=== PATIENT | female | born 1935 | race Caucasian/White ===

== ENCOUNTER 2020-09-29 15:42 | Inpatient (IN) | payer MEDICARE, OTHER, SELFPAY ==
[2020-09-29 15:44] VITALS: BP 140/78; PULSE 73; RESP 16; TEMP 36.7; O2SAT 97; BMI 19.5
[2020-09-29 15:54] VITALS: BP 140/78; PULSE 81; RESP 17; O2SAT 100
--- NOTE | 2020-09-29 15:55 | XR_ITS ---
WS: [id number] XR hip RT 2-3V wo/w pel* [id number] REASON FOR EXAM: fall with hip pain FINDINGS: Transcervical fracture of the proximal right femur probably categorized as a subcapital fracture. There may be a nondisplaced fracture of the right inferior pubic ramus medially. XR/XR hip RT 2-3V wo/w pel* [id number] IMPRESSION: Probable subcapital fracture. Possible inferior pubic ramus fracture as above.
--- NOTE | 2020-09-29 15:57 | ED_ITS ---
Documented by User: EUGENIA Villela 09/29/20 16:58 HPI - Fall General: Chief Complaint: Fall Stated Complaint: fall/right hip pain Time Seen by Provider: 09/29/20 15:50 History of Present Illness: HPI Narrative: Patient is an 85-year-old female who comes to the ED via EMS with right hip pain after fall. EMS brought patient and gave her 100mcg of fentanyl. Patient has a past medical history of hypertension, hyperlipidemia, A. fib with pacemaker and is on apixaban. Patient says that she was in her house and she got up and felt a little dizzy and fell over hitting her right hip on the ground. Denies any head trauma or loss of consciousness. Patient was unable to get up and EMS was called out to assist patient. She says her pain was an 8 out of 10 on the right hip. Patient says she lives at home and is able to ambulate without any assisting devices before injury. Associated symptoms-after fall: Denies abdominal pain, chest pain, headache(s), hematuria or neck pain Review of Systems Const: Denies: fever(s), chills or fatigue Eyes: Denies: change in vision or eye discomfort ENMT: Denies: throat pain, odynophagia, nasal discharge or nasal congestion Card: Denies: chest pain, palpitations, edema, swelling of feet/ankles, dyspnea on exertion or orthopnea Resp: Denies: dyspnea, productive cough or non-productive cough GI: Denies: abdominal pain, nausea, vomiting, diarrhea, constipation or hematochezia : Denies: flank pain, dysuria or hematuria Musc: Reports: extremity pain (right hip) and limited range of motion (right hip); Denies: neck pain, back pain or extremity swelling Skin/Breast: Denies: rash or new lesions Neuro: Denies: headache(s), numbness in extremities or weakness in extremities PFS ED PFSH: Medical History Anticoagulation adequate with anticoagulant therapy Eliquis Atrial fibrillation Carotid stenosis Hyperlipidemia Hypertension Pacemaker Surgical History Status post aorto-coronary artery bypass graft Family History Grandmother CAD (coronary artery disease) Family/Other CAD (coronary artery disease) Denies family history of Diabetes Clotting disorder Dementia Hyperlipidemia Psychiatric illness Chronic kidney disease (CKD) Suicide Anesthesia complication Bleeding disorder Family history of premature coronary artery disease Lung disease Cancer Hypertension Stroke Social History Smoking and tobacco status: never smoked Alcohol intake: never Physical Exam Const: COMMON NORMALS: no acute distress, patient oriented x3 and alert GENERAL APPEARANCE: cooperative and comfortable HENMT: COMMON NORMALS: normocephalic HEAD & SCALP: normocephalic MOUTH: Normal oral and palatal mucosa present THROAT: posterior oropharynx normal and uvula midline Neck/C-Spine: COMMON NORMALS: supple GENERAL: Yes normal visual inspection Resp: COMMON NORMALS: normal respiratory effort, No retractions, No use of accessory muscles and clear to auscultation bilaterally AUSCULTATION: clear to auscultation bilaterally Cardio: COMMON NORMALS: regular rate, regular rhythm, S1 normal heart sound present, S2 normal heart sound present, No gallops present (Cardio), No clicks present (Cardio), No murmurs present (Cardio) and Peripheral pulses 2+ throughout RATE: regular rate RHYTHM: regular rhythm HEART SOUNDS: S1 normal heart sound present and S2 normal heart sound present PERIPHERAL PULSES: Peripheral pulses 2+ throughout GI: COMMON NORMALS: Normal to inspection, nondistended, normoactive bowel sounds present, Soft to palpation, non-tender and no masses PALPATION: Yes Soft to palpation : COMMON NORMALS: Yes no CVA tenderness BLADDER/KIDNEY EXAM: Yes no CVA tenderness Back/Pelvis: COMMON NORMALS: no CVA tenderness Extremity: NARRATIVE EXTREMITY EXAM: Patient's right hip has some tenderness to palpation over the greater trochanter. Patient's right leg is shortened but not externally rotated. Right foot?pedal pulse 1+ and cap refill normal. Sensation intact. GENERAL: Yes normal exam except as noted Neuro: COMMON NORMALS: patient oriented x3 and moves all extremities SENSORIUM/ORIENTATION: Yes alert Skin: GENERAL SKIN EXAM: dry skin Course Consultations: Consultation #1: I contacted Dr. Ivy about patient case. She told me to have patient brought in through medical services due to age and being on Eliquis. Time: 16:48 Vital Signs: Vital signs: Vital Signs Temperature 98.1 F 09/29/20 15:44 Pulse Rate 81 09/29/20 15:54 Respiratory Rate 17 09/29/20 15:54 Blood Pressure 140/78 09/29/20 15:54 Pulse Oximetry 100 09/29/20 15:54 MDM - Fall MDM Narrative: Medical decision making narrative: Patient is a 85-year-old female comes to the ED with right hip pain after fall. Patient is currently on apixaban. Patient's right leg is shortened neurovascular intact, normal cap refill and 1+ pedal pulse distally. X-ray of right hip shows subcapital fracture with possible inferior pubic ramus fracture. I contacted Dr. Ivy and she said to have patient admitted to hospitalist. I told Dr. Ford about patient case and he will be placing the admitting orders. Lab Data: Labs: Lab Results 09/29/20 Range/Units 17:05 WBC 18.0 H (4.0-10.0) 10^3/ uL RBC 4.40 (4.1-5.3) 10^6/u L Hgb 11.8 (11.5-15.3) g/dL Hct 38.4 (37.0-47.0) % MCV 87.3 (81-99) fL MCH 26.8 L (28.0-34.0) pg MCHC 30.7 (30.0-36.0) g/dL RDW 13.4 (12.1-15.1) % Plt Count 186 (130-400) 10^3/c mm MPV 9.6 (7.4-10.4) fL Neut % (Auto) 90.0 % Lymph % (Auto) 3.8 % [place] % (Auto) 5.4 % Eos % (Auto) 0.1 % Baso % (Auto) 0.3 % Neut # (Auto) 16.19 H (1.8-7.7) 10^3/u L Lymph # (Auto) 0.7 L (0.8-4.8) 10^3/u L [place] # (Auto) 1.0 H (0.2-0.9) 10^3/u L Eos # (Auto) 0.0 (0.0-0.8) 10^3/u L Baso # (Auto) 0.1 (0.0-0.1) 10^3/u L Nucleated RBC % (a uto) 0 % Nucleated RBCs # 0.0 /100WBC Imaging Data^: Xray Ortho: Attestation: I personally reviewed and interpreted this imaging study as follows: Radiologist's impression: [facility] [address] [place] [address] XRay Report Signed Patient: Holley Haque Unit #: [id number] : 1935 Age/Sex: 85 / F ADM Date: 09/29/20 Loc: ER Room/Bed: Attending Dr: Ordering Provider/Ordering MD: Dave Newton Date of Service: 09/29/20 Procedure(s): XR hip RT 2-3V wo/w pel* [id number] Accession Number(s): [id number] Report Number: [id number] WS: [id number] XR hip RT 2-3V wo/w pel* [id number] REASON FOR EXAM: fall with hip pain FINDINGS: Transcervical fracture of the proximal right femur probably categorized as a subcapital fracture. There may be a nondisplaced fracture of the right inferior pubic ramus medially. XR/XR hip RT 2-3V wo/w pel* [id number] IMPRESSION: Probable subcapital fracture. Possible inferior pubic ramus fracture as above. Dictated By: Emir Hernandez Jr, MD Signed By: Emir Hernandez Jr, MD Signed Date/Time: 09/29/201646 DD/ Discharge Plan Discharge Prescriptions: No Action omega-3 fatty acids [Fish Oil Concentrate] 1,000 mg capsule 1,000 mg PO BID RF: 0 pantoprazole 40 mg tablet,delayed release (DR/EC) 40 mg PO DAILY RF: 0 aspirin [Adult Low Dose Aspirin] 81 mg tablet,delayed release (DR/EC) 81 mg PO DAILY RF: 0 sotalol 80 mg tablet 80 mg PO BID RF: 0 simvastatin 40 mg tablet 40 mg PO BEDTIME RF: 0 amlodipine 2.5 mg tablet 2.5 mg PO DAILY 90 Days Qty: 90 RF: 3 Eliquis 2.5 mg tablet 2.5 mg PO BID 90 Days Qty: 180 RF: 3 lisinopril 20 mg tablet 20 mg PO BID 90 Days Qty: 180 RF: 3 Multiple Vitamins Tablet 1 tab PO DAILY RF: 0 Coding Level of Care Code ED Hop Worker for Elbertg Fwd Exam Comprehensive Documented by User: Jami Ford MD 09/29/20 17:25 HPI - Fall General: Chief Complaint: Fall Stated Complaint: fall/right hip pain Time Seen by Provider: 09/29/20 15:50 PFSH ED PFSH: Medical History Anticoagulation adequate with anticoagulant therapy Eliquis Atrial fibrillation Carotid stenosis Hyperlipidemia Hypertension Pacemaker Surgical History Status post aorto-coronary artery bypass graft Family History Grandmother CAD (coronary artery disease) Family/Other CAD (coronary artery disease) Denies family history of Diabetes Clotting disorder Dementia Hyperlipidemia Psychiatric illness Chronic kidney disease (CKD) Suicide Anesthesia complication Bleeding disorder Family history of premature coronary artery disease Lung disease Cancer Hypertension Stroke Social History Smoking and tobacco status: never smoked Alcohol intake: never Course Vital Signs: Vital signs: Vital Signs Temperature 98.1 F 09/29/20 15:44 Pulse Rate 81 09/29/20 15:54 Respiratory Rate 17 09/29/20 15:54 Blood Pressure 140/78 09/29/20 15:54 Pulse Oximetry 100 09/29/20 15:54 MDM - Fall MDM Narrative: Medical decision making narrative: Patient presents here with a hip fracture from a fall. She denies any head injury. I saw patient with midlevel and talked to hospitalist Dr. Luiui Dr. Goyal has been consulted. Lab Data: Labs: Lab Results 09/29/20 Range/Units 17:05 WBC 18.0 H (4.0-10.0) 10^3/ uL RBC 4.40 (4.1-5.3) 10^6/u L Hgb 11.8 (11.5-15.3) g/dL Hct 38.4 (37.0-47.0) % MCV 87.3 (81-99) fL MCH 26.8 L (28.0-34.0) pg MCHC 30.7 (30.0-36.0) g/dL RDW 13.4 (12.1-15.1) % Plt Count 186 (130-400) 10^3/c mm MPV 9.6 (7.4-10.4) fL Neut % (Auto) 90.0 % Lymph % (Auto) 3.8 % [place] % (Auto) 5.4 % Eos % (Auto) 0.1 % Baso % (Auto) 0.3 % Neut # (Auto) 16.19 H (1.8-7.7) 10^3/u L Lymph # (Auto) 0.7 L (0.8-4.8) 10^3/u L [place] # (Auto) 1.0 H (0.2-0.9) 10^3/u L Eos # (Auto) 0.0 (0.0-0.8) 10^3/u L Baso # (Auto) 0.1 (0.0-0.1) 10^3/u L Nucleated RBC % (a uto) 0 % Nucleated RBCs # 0.0 /100WBC Discharge Plan Discharge Prescriptions: No Action omega-3 fatty acids [Fish Oil Concentrate] 1,000 mg capsule 1,000 mg PO BID RF: 0 pantoprazole 40 mg tablet,delayed release (DR/EC) 40 mg PO DAILY RF: 0 aspirin [Adult Low Dose Aspirin] 81 mg tablet,delayed release (DR/EC) 81 mg PO DAILY RF: 0 sotalol 80 mg tablet 80 mg PO BID RF: 0 simvastatin 40 mg tablet 40 mg PO BEDTIME RF: 0 amlodipine 2.5 mg tablet 2.5 mg PO DAILY 90 Days Qty: 90 RF: 3 Eliquis 2.5 mg tablet 2.5 mg PO BID 90 Days Qty: 180 RF: 3 lisinopril 20 mg tablet 20 mg PO BID 90 Days Qty: 180 RF: 3 Multiple Vitamins Tablet 1 tab PO DAILY RF: 0 Coding Level of Care Code ED Hop Worker for Chg Fwd Exam Comprehensive
--- NOTE | 2020-09-29 16:50 | XR_ITS ---
WS: [id number] XR chest 1V portable [id number] REASON FOR EXAM: htn FINDINGS: Pacemaker in place over the left chest with leads to the left subclavian vein to the right atrium and right ventricular apex. The heart is not enlarged. There is been previous coronary artery bypass surgery. There is a presumed retrocardiac density which may represent a hiatal hernia. No active pulmonary parenchymal or pleural disease is identified. XR/XR chest 1V portable [id number] IMPRESSION: No acute chest abnormality.
--- NOTE | 2020-09-29 16:51 | ECG_ITS ---
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 Measurements Intervals Mack Rate: 80 P: 83 FL: 122 QRS: 48 QRSD: 90 T: 11 QT: 364 QTc: 421 Interpretive Statements SINUS RHYTHM LOW QRS VOLTAGE IN EXTREMITY LEADS [QRS DEFLECTION < 0.5 mV IN LIMB LEADS] MODERATE T-WAVE ABNORMALITY, CONSIDER ANTERIOR ISCHEMIA [-0.1+ mV T WAVE IN V3/V4] Compared to ECG 10/21/2017 06:10:36 Low QRS voltage now present T-wave abnormality now present Possible ischemia now present Atrial-paced complex(es) or rhythm no longer present Myocardial infarct finding no longer present Electronically Signed On 09-29-2020 18:55:14 HEADMASTER/MISTRESS by Ana Lilia Smith M.D. [id number]
[2020-09-29 17:12] LABS: Basophils # 0.1 10^3/uL (0.0-0.1); Basophils % 0.3 %; Eosinophils % 0.1 %; Hematocrit 38.4 % (37.0-47.0); Hemoglobin 11.8 g/dL (11.5-15.3); Lymphocytes # 0.7 10^3/uL (0.8-4.8); Lymphocytes % 3.8 %; Mean Corpuscular HGB Conc 30.7 g/dL (30.0-36.0); Mean Corpuscular Hemoglobin 26.8 pg (28.0-34.0); Mean Corpuscular Volume 87.3 fL (81-99); Mean Platelet Volume 9.6 fL (7.4-10.4); Monocytes % 5.4 %; Neutrophils # 16.19 10^3/uL (1.8-7.7); Nucleated Red Blood Cells % 0 %; Platelet Count 186 10^3/cmm (130-400); Red Cell Distribution Width 13.4 % (12.1-15.1)
[2020-09-29 17:25] LABS: INR 1.16 (0.8-1.2)
--- NOTE | 2020-09-29 17:27 | W.ED.FALL ---
HPI - Fall General: Chief Complaint: Fall Stated Complaint: fall/right hip pain Time Seen by Provider: 09/29/20 15:50 PFSH ED PFSH: Medical History Anticoagulation adequate with anticoagulant therapy Eliquis Atrial fibrillation Carotid stenosis Hyperlipidemia Hypertension Pacemaker Surgical History Status post aorto-coronary artery bypass graft Family History Grandmother CAD (coronary artery disease) Family/Other CAD (coronary artery disease) Denies family history of Diabetes Clotting disorder Dementia Hyperlipidemia Psychiatric illness Chronic kidney disease (CKD) Suicide Anesthesia complication Bleeding disorder Family history of premature coronary artery disease Lung disease Cancer Hypertension Stroke Social History Smoking and tobacco status: never smoked Alcohol intake: never Course Vital Signs: Vital signs: Vital Signs Temperature 98.1 F 09/29/20 15:44 Pulse Rate 81 09/29/20 15:54 Respiratory Rate 17 09/29/20 15:54 Blood Pressure 140/78 09/29/20 15:54 Pulse Oximetry 100 09/29/20 15:54 MDM - Fall Lab Data: Labs: Lab Results 09/29/20 09/29/20 Range/Units 17:05 17:05 WBC 18.0 H (4.0-10.0) 10^3/ uL RBC 4.40 (4.1-5.3) 10^6/u L Hgb 11.8 (11.5-15.3) g/dL Hct 38.4 (37.0-47.0) % MCV 87.3 (81-99) fL MCH 26.8 L (28.0-34.0) pg MCHC 30.7 (30.0-36.0) g/dL RDW 13.4 (12.1-15.1) % Plt Count 186 (130-400) 10^3/c mm MPV 9.6 (7.4-10.4) fL Neut % (Auto) 90.0 % Lymph % (Auto) 3.8 % [place] % (Auto) 5.4 % Eos % (Auto) 0.1 % Baso % (Auto) 0.3 % Neut # (Auto) 16.19 H (1.8-7.7) 10^3/u L Lymph # (Auto) 0.7 L (0.8-4.8) 10^3/u L [place] # (Auto) 1.0 H (0.2-0.9) 10^3/u L Eos # (Auto) 0.0 (0.0-0.8) 10^3/u L Baso # (Auto) 0.1 (0.0-0.1) 10^3/u L Nucleated RBC % (a uto) 0 % Nucleated RBCs # 0.0 /100WBC PT 15.20 H (12.1-14.9) SECO NDS INR 1.16 (0.8-1.2) EKG Data^: EKG 1: EKG interpretation date: 09/29/20 EKG interpretation time: 17:27 Interpretation: Sinus rhythm ventricular rate 80 bpm IL interval is 122 ms QRS durations 90 ms QT 364 Edie has moderate T wave abnormality in leads V3 V4 Discharge Plan Discharge Prescriptions: No Action omega-3 fatty acids [Fish Oil Concentrate] 1,000 mg capsule 1,000 mg PO BID RF: 0 pantoprazole 40 mg tablet,delayed release (DR/EC) 40 mg PO DAILY RF: 0 aspirin [Adult Low Dose Aspirin] 81 mg tablet,delayed release (DR/EC) 81 mg PO DAILY RF: 0 sotalol 80 mg tablet 80 mg PO BID RF: 0 simvastatin 40 mg tablet 40 mg PO BEDTIME RF: 0 amlodipine 2.5 mg tablet 2.5 mg PO DAILY 90 Days Qty: 90 RF: 3 Eliquis 2.5 mg tablet 2.5 mg PO BID 90 Days Qty: 180 RF: 3 lisinopril 20 mg tablet 20 mg PO BID 90 Days Qty: 180 RF: 3 Multiple Vitamins Tablet 1 tab PO DAILY RF: 0 Coding Level of Care Code ED Community Health Nurse Staff for Vicki Gonzalez
[2020-09-29 17:37] LABS: Alanine Aminotransferase 18 U/L (0-33); Albumin Level 3.6 g/dL (3.5-5.2); Alkaline Phosphatase 71 IU/L (35-105); Anion Gap 11.8 (5-19); Aspartate Amino Transferase 27 U/L (0-32); Blood Urea Nitrogen 13 mg/dL (8-23); Calcium 8.2 mg/dL (8.5-10.5); Carbon Dioxide 25 mmol/L (22-29); Chloride 106 mmol/L (98-107); Globulin 2.2 g/dL (1.3-4.6); Glucose 138 mg/dL (65-115); Osmolality Calculated 290 mOsm/kg (285-295); Potassium 3.8 mmol/L (3.5-5.1); Sodium 139 mmol/L (136-145); Total Bilirubin 0.7 mg/dL (0.15-1.2); Total Protein 5.8 g/dL (6.6-8.7)
[2020-09-29 18:17] VITALS: RESP 17
[2020-09-29] MEDS: morphine 4 mg/mL SDV 1 mL IVP (18:17)
[2020-09-29 18:20] VITALS: BP 152/77; PULSE 82; RESP 17; O2SAT 93
--- NOTE | 2020-09-29 18:27 | PM.HP ---
Providers/Chief Complaint Admitting Physician: Luiza Cabello MD Primary Care Provider: BARBARA Nolen Chief Complaint: fall/right hip pain History of Present Illness Holley Haque is a 85 year old female with PMHx noted below presents to the ER via ambulance after having fallen at home earlier this morning around 10 AM. She reports waking up and feeling like her usual self but around 10 AM felt lightheaded and suddenly found herself on the floor. She denies loss of consciousness or head trauma but was unable to get up on her own. She somehow managed to crawl leaning on her left side until she could reach her phone then called her sister who then called for an ambulance. Prior to this patient states that she was in her usual state of health, was ambulating independently, denies prior falls. She lives alone and is quite independent. She is not oxygen dependent at baseline, denies any recent changes to her medications and reports compliance with them. She has a known history of sick sinus syndrome status post pacemaker placement and atrial fibrillation in addition to CAD status post CABG; she follows up with cardiology for these issues. She had her pacemaker interrogated by Dr. Falk in the office in May, no noted arrhythmias and pacemaker is functioning appropriately. She is on baby aspirin and low-dose Eliquis, last dose was taken yesterday evening. She has been trying to limit her outside activity in light of the COVID-19 pandemic, denies any contact with any known COVID-19 positive individuals, and when she does venture outside she makes sure to wear a mask and maintain social distancing. She is resting on the stretcher in the ER during my encounter, able to provide her own history, additional information obtained from review of medical record and ER report. Work-up so far reveals leukocytosis with a white count of 18.0, neutrophilic predominance, normal electrolytes and renal function, blood glucose of 138, INR of 1.16. She has been screened for COVID-19 in light of need for surgical intervention. Chest x-ray is unremarkable, right hip x-ray shows subcapital hip fracture and probable inferior pubic ramus fracture. Dr. Ivy has been consulted, I have discussed the case with her and plan will be for surgical intervention on Sunday to allow for appropriate elimination of anticoagulants. ER nursing staff is in the process of placing a Bagley catheter per my request. Patient will be admitted to the medical surgical floor pending surgical intervention. Review of Systems Const: Denies: fever(s), chills or change in appetite Eyes: Denies: change in vision ENMT: Reports: dry mouth Card: Denies: chest pain, swelling of feet/ankles, lightheadedness or syncope Resp: Denies: dyspnea, productive cough or non-productive cough GI: Denies: abdominal pain, nausea, vomiting, hematemesis or change in bowel habits (has colostomy) : Denies: difficulty voiding, dysuria, urinary frequency or hematuria Musc: Reports: extremity pain (RLE); Denies: back pain Skin/Breast: Denies: rash Neuro: Denies: numbness in extremities, weakness in extremities or frequent falls Psych: Denies: anxiety Medications/Allergies Home Medications Medication Instructions Recorded Confirmed Last Taken Type amlodipine 2.5 mg tablet 2.5 mg PO DAILY 90 Days #90 tab 12/09/19 09/29/20 09/28/20 Rx apixaban 2.5 mg tablet 2.5 mg PO BID 90 Days #180 tab 12/18/19 09/29/20 09/28/20 Rx lisinopril 20 mg tablet 20 mg PO BID 90 Days #180 tab 01/26/20 09/29/20 09/28/20 Rx aspirin 81 mg tablet,delayed 81 mg PO DAILY 03/11/20 09/29/20 09/28/20 History release omega-3 fatty acids 1,000 mg 1,000 mg PO BID 03/11/20 09/29/20 09/28/20 History capsule pantoprazole 40 mg tablet,delayed 40 mg PO DAILY 03/11/20 09/29/20 09/28/20 History release simvastatin 40 mg tablet 40 mg PO BEDTIME 03/11/20 09/29/20 09/28/20 History sotalol 80 mg tablet 80 mg PO BID 03/11/20 09/29/20 09/28/20 History multivitamin [Multiple Vitamins] 1 tab PO DAILY 09/29/20 09/29/20 Unknown History Allergies Allergy/AdvReac Type Severity Reaction Status Date / Time No Known Allergies Allergy Verified 09/29/20 16:23 PFSH Acute PFSH: Medical History Anticoagulation adequate with anticoagulant therapy Eliquis Atrial fibrillation Carotid stenosis Hyperlipidemia Hypertension Sick sinus syndrome Surgical History Colostomy in place -since 1986 Pacemaker Status post aorto-coronary artery bypass graft Family History Grandmother CAD (coronary artery disease) Family/Other CAD (coronary artery disease) Denies family history of Diabetes Clotting disorder Dementia Hyperlipidemia Psychiatric illness Chronic kidney disease (CKD) Suicide Anesthesia complication Bleeding disorder Family history of premature coronary artery disease Lung disease Cancer Hypertension Stroke Social History (Updated 09/29/20 @ 18:29 by Luiza Cabello MD) Smoking and tobacco status: never smoked Alcohol intake: never Substance/Drug Use: never Lives independently: Yes Current occupational status: retired Vitals/I&O/Wt Last Vital Signs Temp 98.1 F 09/29/20 15:44 Pulse 82 09/29/20 18:20 Resp 17 09/29/20 18:20 BP 152/77 09/29/20 18:20 Pulse Ox 93 09/29/20 18:20 Weight last 48 hrs Weight 49.895 kg Physical Exam Const: COMMON NORMALS: no acute distress, patient oriented x3 and alert GENERAL APPEARANCE: cooperative and comfortable ORIENTATION/CONSCIOUSNESS: Yes awake OTHER: -looks younger than stated age, very pleasant HENMT: COMMON NORMALS: normocephalic, atraumatic, hearing grossly normal bilaterally and moist oral mucous membranes HEAD & SCALP: normocephalic and atraumatic Eye: COMMON NORMALS: Equal, round and reactive pupils present, EOMs intact bilaterally and conjunctivae normal CONJUNCTIVA: Yes conjunctivae normal PUPIL: Yes Equal, round and reactive pupils present Neck/C-Spine: COMMON NORMALS: full ROM GENERAL: Yes normal visual inspection and Yes trachea midline Chest: CHEST: Yes Pacemaker present Resp: COMMON NORMALS: normal respiratory effort, No retractions, No use of accessory muscles and clear to auscultation bilaterally EFFORT & INSPECTION: Yes able to speak in complete sentences, Yes symmetric chest movement and No tachypneic AUSCULTATION: clear to auscultation bilaterally OTHER: -on 3 L NC Cardio: COMMON NORMALS: regular rate, regular rhythm, S1 normal heart sound present, S2 normal heart sound present and No murmurs present (Cardio) RATE: regular rate RHYTHM: regular rhythm HEART SOUNDS: S1 normal heart sound present and S2 normal heart sound present GI: COMMON NORMALS: Normal to inspection, nondistended, normoactive bowel sounds present, Soft to palpation and non-tender INSPECTION: Yes GI ostomy present PALPATION: Yes Soft to palpation Extremity: COMMON NORMALS: no clubbing, cyanosis or edema and no pedal edema NARRATIVE EXTREMITY EXAM: -RLE: shortened, externally rotated, slightly abducted, limited ROM; neurovascularly intact Neuro: COMMON NORMALS: patient oriented x3, no focal motor deficits and no sensory deficits noted SENSORIUM/ORIENTATION: Yes alert Psych: COMMON NORMALS: mental status grossly normal, Normal thought process present, cooperative, normal affect and speech normal SPEECH: Yes normal speech THOUGHT PROCESS: Normal thought process present Skin: COMMON NORMALS: no rashes or lesions noted, no jaundice, no petechiae and no mottling GENERAL SKIN EXAM: no rashes or lesions noted Data : 09/29/20 17:05 09/29/20 17:05 A&P Assessment and plan (1) Subcapital fracture of right hip: -secondary to fall earlier today -x-ray reported as probable subcapital fracture and possible inferior pubic ramus fracture -Bagley catheter placement requested -Pain control as needed, bed rest pending surgery -Noted leukocytosis, chest x-ray negative, screening for COVID-19 for preop clearance, urinalysis pending -Orthopedic consult by Dr. Cata bullard; plan for surgical intervention on Sunday secondary to being on anticoagulation. Patient is on Eliquis and aspirin, last doses taken yesterday p.m. Will keep NPO after midnight on PM -monitor vital signs -PT/OT evaluations post-op -periop antibiotics Status: Acute Qualifiers: Encounter type: initial encounter Fracture type: closed Qualified Code(s): S72.011A - Unspecified intracapsular fracture of right femur, initial encounter for closed fracture (2) Hypertension: -monitor vital signs -resume oral antihypertensives Status: Chronic Qualifiers: Hypertension type: essential hypertension Qualified Code(s): I10 - Essential (primary) hypertension (3) Carotid stenosis: -carotid US (2017): < 50% stenosis bilaterally -on statin, ASA Status: Chronic Qualifiers: Laterality: bilateral Qualified Code(s): I65.23 - Occlusion and stenosis of bilateral carotid arteries (4) Hyperlipidemia: -resume statin Status: Chronic Qualifiers: Hyperlipidemia type: unspecified Qualified Code(s): E78.5 - Hyperlipidemia, unspecified (5) Atrial fibrillation: -telemetry monitoring -resume Sotalol -hold Eliquis pending surgical intervention Status: Chronic Qualifiers: Atrial fibrillation type: unspecified Qualified Code(s): I48.91 - Unspecified atrial fibrillation (6) Sick sinus syndrome: -sick sinus syndrome s/p pacemaker placement (09/2017). Interrogated by Dr. Falk in 05/2020, functioning appropriately Status: Chronic Additional A&P Information -has colostomy in place since 1986 secondary to colon cancer; colostomy care as needed, patient has her own supplies at bedside -bowel regimen while on narcotics -Advanced age; very independent -hx of CAD s/p CABG (2002); follows up with cardiology -cardiac diet as tolerated; NPO after midnight on 11/5 PM -GI ppx with PPI -DVT ppx with SCDs, foot pumps; no AC in anticipation of surgery -Dispo: was living alone -Code status: DNR, ok with intubation if needed -Admit to medical-surgical floor Attestations Medical Necessity Statement*: Holley Haque's hospital stay will require greater than 2 midnights for management of right hip fracture requiring surgical intervention pending being off anticoagulation x at least 48 hrs. Time Spent in Patient Care: Greater than 35 minutes (>than 50% of time spent in counselling and/or direct pt care on unit). 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
[2020-09-29 19:17] LABS: Urine Appearance Hazy (CLEAR); Urine Color Yellow (Yellow); pH Urine 7 (5-7)
[2020-09-29 19:19] LABS: Add Urine Microscopic? YES; Bilirubin Urine Neg (Negative); Blood Urine Neg (Negative); Glucose Urine UA Norm (Normal); Ketones Urine 1+ (Negative); Leukocyte Esterase Urine Negative (Negative); Nitrate Urine Positive (Negative); Protein Urine Neg (Negative); Urobilinogen Urine Norm (Negative)
[2020-09-29 19:37] LABS: Add Urine Culture? Yes; Bacteria Urine 4+ /hpf; RBC Urine 0-4 /hpf (0-2); Squamous Epithelial Cell Urine 0-4 /hpf (0-5); WBC Urine 0-4 /hpf (0-5)
[2020-09-29 19:46] VITALS: BP 124/68; PULSE 82; RESP 18; TEMP 36.6; O2SAT 93
[2020-09-29] MEDS: atorvastatin 40 mg Tablet 20 MG PO (20:58)
[2020-09-30] VITALS (8 sets, daily range): BP systolic 91–118; BP diastolic 52–68; PULSE 58–73; RESP 16–24; TEMP 36.3–36.9; O2SAT 90–96
[2020-09-30 02:59] LABS: Basophils # 0.1 10^3/uL (0.0-0.1); Basophils % 0.4 %; Eosinophils % 0.1 %; Hematocrit 38.8 % (37.0-47.0); Hemoglobin 11.8 g/dL (11.5-15.3); Lymphocytes # 0.7 10^3/uL (0.8-4.8); Lymphocytes % 4.9 %; Mean Corpuscular HGB Conc 30.4 g/dL (30.0-36.0); Mean Corpuscular Hemoglobin 26.7 pg (28.0-34.0); Mean Corpuscular Volume 87.8 fL (81-99); Mean Platelet Volume 9.9 fL (7.4-10.4); Monocytes # 0.6 10^3/uL (0.2-0.9); Neutrophils # 13.37 10^3/uL (1.8-7.7); Neutrophils % 90.2 %; Nucleated Red Blood Cells % 0 %; Platelet Count 188 10^3/cmm (130-400); Red Blood Count 4.42 10^6/uL (4.1-5.3); Red Cell Distribution Width 13.7 % (12.1-15.1); White Blood Count 14.8 10^3/uL (4.0-10.0)
--- NOTE | 2020-09-30 06:49 | PM.PN ---
Subjective Subjective: Interval history: Hemodynamically stable, did not require additional analgesics overnight after morphine dose given in ED. Had 725 mL urine output overnight. UA noted to indicate infection so will start on antibiotic therapy. Pacemaker interrogated, no events. Medications: Reviewed: Yes Medication Review Details: Active Medications Generic Name Dose Route Start Last Admin Trade Name Freq PRN Reason Stop Dose Admin Acetaminophen 650 mg 09/29/20 19:46 Tylenol PO Q6H PRN Mild/Mod Pain Or Temp >/= 101 Amlodipine Besylat e 2.5 mg 09/30/20 09:00 Norvasc PO DAILY [facility] Atorvastatin Calci um 20 mg 09/29/20 21:00 09/29/20 20:58 Lipitor PO 20 mg BEDTIME JAILYN Administration Ceftriaxone Sodium 1,000 mg/ 50 mls @ 100 mls/ hr 09/30/20 07:00 Sodium Chloride IV Q24H [facility] Protocol Lisinopril 20 mg 09/30/20 09:00 Prinivil PO BID [facility] Morphine Sulfate 2 mg 09/29/20 19:46 Morphine IVP Q4H PRN SEVERE PAIN Multivitamins Ther apeutic 1 tab 09/30/20 09:00 Multivitamin Tab PO DAILY [facility] [id number] Ethyl Esters 1,000 mg 09/30/20 09:00 [place]-3 Fatty Ac ids PO BID [facility] Ondansetron HCl 4 mg 09/29/20 19:46 Zofran IVP Q6H PRN vomiting, or N/V if npo Oxycodone/Acetamin ophen 1 tab 09/29/20 19:46 Percocet 5-325 M g PO Q4H PRN moderate to sever e pain Pantoprazole Sodiu m 40 mg 09/30/20 09:00 Protonix PO DAILY [facility] Polyethylene Glyco l 17 gm 09/30/20 09:00 Miralax PO DAILY [facility] Senna/Docusate Sod ium 2 tab 09/30/20 09:00 Senna-S PO BID [facility] Sotalol HCl 80 mg 09/30/20 09:00 Betapace PO BID [facility] No Known Allergies Allergy (Verified 09/29/20 16:23) Vitals/I&O/Wt Last Vital Signs Temp 97.6 F 09/30/20 04:00 Pulse 73 09/30/20 04:00 Resp 24 H 09/30/20 04:00 BP 118/52 09/30/20 04:00 Pulse Ox 94 09/30/20 04:00 09/29/20 09/29/20 09/30/20 14:59 22:59 06:59 Intake Total 240 / 240 240 / 480 Output Total 725 / 725 Balance 240 / 240 -485 / -245 Weight last 48 hrs Weight 52.662 kg Weight 49.895 kg Physical Exam Const: COMMON NORMALS: no acute distress, patient oriented x3 and alert GENERAL APPEARANCE: cooperative and comfortable ORIENTATION/CONSCIOUSNESS: Yes awake OTHER: -looks younger than stated age, very pleasant HENMT: COMMON NORMALS: normocephalic, atraumatic, hearing grossly normal bilaterally and moist oral mucous membranes HEAD & SCALP: normocephalic and atraumatic Eye: COMMON NORMALS: Equal, round and reactive pupils present, EOMs intact bilaterally and conjunctivae normal CONJUNCTIVA: Yes conjunctivae normal PUPIL: Yes Equal, round and reactive pupils present Neck/C-Spine: COMMON NORMALS: full ROM GENERAL: Yes normal visual inspection and Yes trachea midline Chest: CHEST: Yes Pacemaker present Resp: COMMON NORMALS: normal respiratory effort, No retractions, No use of accessory muscles and clear to auscultation bilaterally EFFORT & INSPECTION: Yes able to speak in complete sentences, Yes symmetric chest movement and No tachypneic AUSCULTATION: clear to auscultation bilaterally OTHER: -on RA Cardio: COMMON NORMALS: regular rate, regular rhythm, S1 normal heart sound present, S2 normal heart sound present and No murmurs present (Cardio) RATE: regular rate RHYTHM: regular rhythm HEART SOUNDS: S1 normal heart sound present and S2 normal heart sound present GI: COMMON NORMALS: Normal to inspection, nondistended, normoactive bowel sounds present, Soft to palpation and non-tender INSPECTION: Yes GI ostomy present PALPATION: Yes Soft to palpation Extremity: COMMON NORMALS: no clubbing, cyanosis or edema and no pedal edema NARRATIVE EXTREMITY EXAM: -RLE: shortened, externally rotated, slightly abducted, limited ROM; neurovascularly intact Neuro: COMMON NORMALS: patient oriented x3, no focal motor deficits and no sensory deficits noted SENSORIUM/ORIENTATION: Yes alert Psych: COMMON NORMALS: mental status grossly normal, Normal thought process present, cooperative, normal affect and speech normal SPEECH: Yes normal speech THOUGHT PROCESS: Normal thought process present Skin: COMMON NORMALS: no rashes or lesions noted, no jaundice, no petechiae and no mottling GENERAL SKIN EXAM: no rashes or lesions noted Urinary Catheter Management^: Bagley: Cath Placed During This Visit: yes Reason for Continuing Indwelling Catheter: Required Immobilization for Trauma or Surgery or Anesthesia Urinary Catheter Date of Insertion: 09/29/20 Urinary Catheter Time of Insertion: 18:45 Data : 09/30/20 02:12 09/29/20 17:05 A&P Assessment and plan (1) Subcapital fracture of right hip: -secondary to fall at home, precipitated by dizzy spell -x-ray reported as probable subcapital fracture and possible inferior pubic ramus fracture -Bagley catheter in place, anticipate removal post-op; continue to monitor urine output -Pain control as needed, bed rest pending surgery -Noted leukocytosis, chest x-ray negative, screening for COVID-19 for preop clearance, urinalysis indicative of infection. WBC trending down, start on Ceftriaxone -Orthopedic consult by Dr. Cata bullard; plan for surgical intervention on Sunday secondary to being on anticoagulation. Patient is on Eliquis and aspirin, last doses taken 11 PM. Will keep NPO after midnight on PM -continue to monitor vital signs -PT/OT evaluations post-op -shannan-op antibiotics Status: Acute Qualifiers: Encounter type: initial encounter Fracture type: closed Qualified Code(s): S72.011A - Unspecified intracapsular fracture of right femur, initial encounter for closed fracture (2) Hypertension: -continue to monitor vital signs; stable -continue oral antihypertensives Status: Chronic Qualifiers: Hypertension type: essential hypertension Qualified Code(s): I10 - Essential (primary) hypertension (3) Carotid stenosis: -carotid US (2017): < 50% stenosis bilaterally -on statin, ASA Status: Chronic Qualifiers: Laterality: bilateral Qualified Code(s): I65.23 - Occlusion and stenosis of bilateral carotid arteries (4) Hyperlipidemia: -continue statin Status: Chronic Qualifiers: Hyperlipidemia type: unspecified Qualified Code(s): E78.5 - Hyperlipidemia, unspecified (5) Atrial fibrillation: -telemetry monitoring -continue Sotalol -continue to hold Eliquis pending surgical intervention Status: Chronic Qualifiers: Atrial fibrillation type: unspecified Qualified Code(s): I48.91 - Unspecified atrial fibrillation (6) Sick sinus syndrome: -sick sinus syndrome s/p pacemaker placement (09/2017). Interrogated by Dr. Falk in 05/2020, functioning appropriately. Interrogation of device done this AM, no events reported, official report in chart Status: Chronic (7) UTI (urinary tract infection): -UA indicative of infection -f/u urine cx -blood cx pending -start on Ceftriaxone Status: Acute Qualifiers: Hematuria presence: without hematuria Urinary tract infection type: acute cystitis Qualified Code(s): N30.00 - Acute cystitis without hematuria Additional A&P Information -has colostomy in place since 1986 secondary to colon cancer; colostomy care as needed, patient has her own supplies at bedside -bowel regimen while on narcotics -Advanced age; very independent at baseline -hx of CAD s/p CABG (2002); follows up with cardiology -cardiac diet as tolerated; NPO after midnight -GI ppx with PPI -DVT ppx with SCDs, foot pumps; no AC in anticipation of surgery -Dispo: was living alone, may need SNF placement post-op, first choice is [facility] -Code status: DNR, ok with intubation if needed Attestations Medical Necessity Statement*: Patient requires hospitalization for continued care pending surgical intervention for R hip fracture pending being off anticoagulation for an appropriate time and treatment of UTI. Time Spent in Patient Care: 16 - 35 minutes (>than 50% of time spent in counselling and/or direct pt care on unit). Coding Level of Care Code Acute Manufacturer'S Representative for [facility] Fwd Exam Comprehensive Diagnoses Subcapital fracture of right hip S72.011A Encounter type: initial encounter Fracture type: closed Hypertension I10 Hypertension type: essential hypertension Carotid stenosis I65.23 Laterality: bilateral Hyperlipidemia E78.5 Hyperlipidemia type: unspecified Atrial fibrillation I48.91 Atrial fibrillation type: unspecified Sick sinus syndrome I49.5 UTI (urinary tract infection) N30.00 Hematuria presence: without hematuria Urinary tract infection type: acute cystitis
[2020-09-30] MEDS: cefTRIAXone 1,000 MG in sodium chloride 0.9% (plus) 50 ML 100 MG IV (08:14)
[2020-09-30] MEDS: lisinopril 20 mg Tablet PO (08:15)
[2020-09-30] MEDS: multivitamin therapeutic Tablet 1 TAB PO (08:15)
[2020-09-30] MEDS: amlodipine 5 mg Tablet 2.5 MG PO (08:15)
[2020-09-30] MEDS: pantoprazole DR 40 mg Tablet PO (08:15)
[2020-09-30] MEDS: oxyCODONE-APAP 5-325 mg Tablet 1 TAB PO ×2 (08:15→21:01)
[2020-09-30] MEDS: omega-3 fatty acids 1,000 mg Capsule 1000 MG PO ×2 (08:15→17:16)
[2020-09-30] MEDS: sotalol 80 mg Tablet PO ×2 (08:15→17:16)
--- NOTE | 2020-09-30 09:35 | PM.CONSULT ---
Providers/Reason For Consult Consulting Physican/Specialty*: Arleth Ivy MD Reason for Consult*: Right Subcapital Displaced Hip Fracture Requesting Physcian: Emergency Department - BARBARA Molina Attending Physician: Luiza Cabello MD Primary Care Provider: BARBARA Nolen History of Present Illness History of Present Illness Holley Haque is a 85 year old female who presented last evening to the emergency department after falling at home. Reportedly, the patient fell around 10:00 in the morning. She had not had any previous issues, but she did report feeling lightheaded and she fell to the floor. She denied any loss of consciousness but she was unable to get up. She crawled on the floor until she could reach her phone at which point she called her sister. Prior to the fall, she ambulated independently and denied prior falls. She does live alone. Most recently, she has been limiting outside activity secondary to the COVID-19 pandemic, and she denies any known exposure. The patient is on Eliquis and baby aspirin which will require a delay in scheduling her surgery. Review of Systems Const: Denies: fever(s) or chills Eyes: Denies: change in vision Card: Denies: chest pain Resp: Denies: dyspnea or productive cough GI: Denies: abdominal pain Musc: Reports: extremity pain (Secondary to fracture) Skin/Breast: Denies: erythema or changes in skin color Neuro: Denies: numbness in extremities Psych: Denies: anxiety or depression Jay/Lymph: Denies: easy bruising or easy bleeding Meds/Allergies Home Medications and Allergies Home Medications Medication Instructions Recorded Confirmed Last Taken Type amlodipine 2.5 mg tablet 2.5 mg PO DAILY 90 Days #90 tab 12/09/19 09/29/20 09/28/20 Rx apixaban 2.5 mg tablet 2.5 mg PO BID 90 Days #180 tab 12/18/19 09/29/20 09/28/20 Rx lisinopril 20 mg tablet 20 mg PO BID 90 Days #180 tab 01/26/20 09/29/20 09/28/20 Rx aspirin 81 mg tablet,delayed 81 mg PO DAILY 03/11/20 09/29/20 09/28/20 History release omega-3 fatty acids 1,000 mg 1,000 mg PO BID 03/11/20 09/29/20 09/28/20 History capsule pantoprazole 40 mg tablet,delayed 40 mg PO DAILY 03/11/20 09/29/20 09/28/20 History release simvastatin 40 mg tablet 40 mg PO BEDTIME 03/11/20 09/29/20 09/28/20 History sotalol 80 mg tablet 80 mg PO BID 03/11/20 09/29/20 09/28/20 History multivitamin [Multiple Vitamins] 1 tab PO DAILY 09/29/20 09/29/20 Unknown History Allergies Allergy/AdvReac Type Severity Reaction Status Date / Time No Known Allergies Allergy Verified 09/29/20 16:23 Current Medications Current Medications Generic Name Dose Route Start Last Admin Trade Name Freq PRN Reason Stop Dose Admin Amlodipine Besylate 2.5 mg 09/30/20 09:00 09/30/20 08:15 Norvasc PO 2.5 mg DAILY JAILYN Administration Atorvastatin Calcium 20 mg 09/29/20 21:00 09/29/20 20:58 Lipitor PO 20 mg BEDTIME JAILYN Administration Ceftriaxone Sodium 1,000 mg/ 50 mls @ 100 mls/hr 09/30/20 07:00 09/30/20 08:14 Sodium Chloride IV 100 mls/hr Q24H JAILYN Administration Protocol Lisinopril 20 mg 09/30/20 09:00 09/30/20 08:15 Prinivil PO 20 mg BID JAILYN Administration Multivitamins Therapeutic 1 tab 09/30/20 09:00 09/30/20 08:15 Multivitamin Tab PO 1 tab DAILY JAILYN Administration [id number] Ethyl Esters 1,000 mg 09/30/20 09:00 09/30/20 08:15 [place]-3 Fatty Acids PO 1,000 mg BID JAILYN Administration Oxycodone/Acetaminophen 1 tab 09/29/20 19:46 09/30/20 08:15 Percocet 5-325 Mg PO 1 tab Q4H PRN Administration moderate to severe pain Pantoprazole Sodium 40 mg 09/30/20 09:00 09/30/20 08:15 Protonix PO 40 mg DAILY JAILYN Administration Polyethylene Glycol 17 gm 09/30/20 09:00 09/30/20 08:15 Miralax PO Not Given DAILY JAILYN Senna/Docusate Sodium 2 tab 09/30/20 09:00 09/30/20 08:15 Senna-S PO Not Given BID JAILYN Sotalol HCl 80 mg 09/30/20 09:00 09/30/20 08:15 Betapace PO 80 mg BID JAILYN Administration PFSH Acute PFSH: Medical History Anticoagulation adequate with anticoagulant therapy Eliquis Atrial fibrillation Carotid stenosis Hyperlipidemia Hypertension Sick sinus syndrome Surgical History 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 Pacemaker Status post aorto-coronary artery bypass graft -in 2002 Family History Grandmother CAD (coronary artery disease) Family/Other CAD (coronary artery disease) Denies family history of Diabetes Clotting disorder Dementia Hyperlipidemia Psychiatric illness Chronic kidney disease (CKD) Suicide Anesthesia complication Bleeding disorder Family history of premature coronary artery disease Lung disease Cancer Hypertension Stroke Social History Smoking and tobacco status: never smoked Alcohol intake: never Substance/Drug Use: never Lives independently: Yes Current occupational status: retired Vitals/I&O/Wt Last Vital Signs Temp 98.5 F 09/30/20 07:39 Pulse 64 09/30/20 07:39 Resp 16 09/30/20 08:15 BP 113/66 09/30/20 07:39 Pulse Ox 91 09/30/20 07:39 09/29/20 09/30/20 09/30/20 22:59 06:59 14:59 Intake Total 240 / 240 240 / 480 480 / 480 Output Total 725 / 725 Balance 240 / 240 -485 / -245 480 / 480 Weight last 48 hrs Weight 116 lb 1.6 oz Weight 110 lb Physical Exam Const: COMMON NORMALS: no acute distress, average body habitus, patient oriented x3 and alert GENERAL APPEARANCE: cooperative and comfortable ORIENTATION/CONSCIOUSNESS: Yes awake HENMT: COMMON NORMALS: normocephalic and atraumatic HEAD & SCALP: normocephalic and atraumatic Eye: GENERAL EYE: appearance normal, both eyes and all related structures Chest: COMMONS NORMALS: normal inspection of the chest Resp: COMMON NORMALS: normal respiratory effort EFFORT & INSPECTION: Yes able to speak in complete sentences and Yes symmetric chest movement Extremity: RIGHT LOWER EXTREMITY: Yes hip joint (The right leg is shortened and externally rotated.) Right hip: Yes inspection (There is no significant swelling or skin breakdown.), Yes palpation (There is tenderness to palpation over the right hip.), Yes ROM (Not evaluated secondary to fracture.) and Yes neurovascular exam (Intact vascular, motor, and sensory function distal to the fracture in the right lower extremity.) Neuro: COMMON NORMALS: patient oriented x3 SENSORIUM/ORIENTATION: Yes alert Psych: COMMON NORMALS: mental status grossly normal APPEARANCE: Yes grossly normal ATTITUDE: Yes calm and Yes engaged ATTENTION/CONCENTRATION: Yes attention grossly intact Skin: COMMON NORMALS: no rashes or lesions noted GENERAL SKIN EXAM: no rashes or lesions noted Urinary Catheter Management^: [place]: Cath Placed During This Visit: yes Reason for Continuing Indwelling Catheter: Acute Urinary Retention or Obstruction Urinary Catheter Date of Insertion: 09/29/20 Urinary Catheter Time of Insertion: 18:45 Data Micro: Micro: Microbiology 09/30/20 07:31 Blood Culture - Pr eliminary Blood [facility] 09/30/20 07:27 Blood Culture - Pr eliminary Blood [facility] Imaging^: Xray Ortho: I personally reviewed and interpreted this imaging study as follows: My impression: X-rays are printed by me from the time of the patient's admission. There is a displaced subcapital right hip fracture noted on AP and lateral of the patient's right hip. There is some irregularity of the inferior pubic ramus, may be consistent with either recurrent or remote inferior pubic ramus fracture. A&P Assessment and plan (1) Subcapital fracture of right hip: Patient was admitted last evening through the emergency department and subsequently evaluated by the hospitalist team. She has a history of sick sinus syndrome and is chronically on Eliquis as well as a baby aspirin. Secondary to the Eliquis, she will need nearly 48 hours from her last dose of medication to optimize elimination of the anticoagulant effects. Secondary to complete displacement of the femoral head, we will plan a bipolar hip arthroplasty. This will be accomplished on October 01. Risks and complications are discussed with the patient. Status: Acute Qualifiers: Encounter type: initial encounter Fracture type: closed Qualified Code(s): S72.011A - Unspecified intracapsular fracture of right femur, initial encounter for closed fracture Consult Attestations Medical Necessity Statement: Patient will require at least 2 midnights for postoperative rehabilitation and pain management with aggressive physical therapy. Coding Level of Care Code Acute Dispatcher [employer] Disposal for Vicki Gonzalez Diagnoses Subcapital fracture of right hip S72.011A Encounter type: initial encounter Fracture type: closed
--- NOTE | 2020-09-30 10:54 | PC.CHAP ---
Pastoral Care Encounter/Spiritual Assessment Type of Contact [] Declined rejoiner visit [] Patient/Family/Request visit [] Outpatient visit [] Follow-up visit [] Physician referral [] Code/Alert [] Routine visit [] Staff referral [] Actively dying [] Patient sleeping [] Family support [] [] Out of room [] Palliative care [] [] Receiving care in room [] Pre-surgical visit [] Trauma [] Long length of stay [] ICU visit [x] Other: Isolation Relational/Emotional Strength [] Patient feels connected with others/family/visitors/staff [] Distress [] Loneliness/isolation [] Abandonment Spirituality of Patient [] Person of Divine [] Attends Jew of their Divine [] Believes in Prayer [] Reads Bible or Baptism materials [] There are Spiritual issues to be addressed Help Desk Manager Interventions [] Prayer [] Active listening [] Non-anxious presence [] Spiritual/emotional support [] Crisis/trauma care [] Spiritual counseling [] Bereavement support [] Provided bereavement packet [] Provided Bible/devotional materials [] Provided toy/stuffed animal, coloring book to patient or family member [] Provided Communion [] Anointing/[place] [] Salvation [] Completed spiritual assessment [] Other: Impact on Illness or Injury [] Angry [] Fearful [] Anxious [] Often cries [] Exhaustion [] Unable to work [] Unable to attend jain [] Unable to walk/stand [] Unable to read [] Unable to drive [] Unable to eat/drink [] Unable to sleep [] Unable to be with family [] Patient intubated [] Other: Summary Isolation Time spent with patient 5 mins
[2020-09-30] MEDS: sodium chloride 0.9% 500 ML IV (16:00)
--- NOTE | 2020-09-30 18:04 | PC.NURSE ---
SHIFT SUMMARY PATIENT HAS DONE WELL TODAY. SHE HAS RESTED MOST OF THE DAY. GOOD ORAL INTAKE. THIS NURSE NOTICED LOW URINE OUTPUT IN PATIENT'S SINGH CATHETER. SINGH CATHETER FLUSHED AND EVALUATED TO MAKE SURE DRAINING PROPERLY. DR. BONILLA NOTIFIED. A 500ML BOLUS WAS ORDERED AND ADMINISTERED. CONTINUE TO MONITOR URINE OUTPUT WELL BP. PLAN FOR SURGERY TOMORROW.
--- NOTE | 2020-09-30 19:18 | PC.NURSE ---
PATIENT'S TELEMETRY WAS READING HEART RATE IN THE 40'S AND THEN 0 THIS AM. THIS NURSE CHANGED TELEMETRY BOXES AND INTERROGATED PATIENT'S PACEMAKER. [employer] CALLED AND STATED PACEMAKER WAS FUNCTIONING PROPERLY. AFTER TELEMETRY BOX CHANGED, PATIENT'S HEART RATE HAS BEEN IN THE 60'S AND PACED.
[2020-09-30] MEDS: dextrose 5%-sod chloride 0.45% 1,000 ML 75 ML IV (21:02)
[2020-09-30] MEDS: atorvastatin 40 mg Tablet 20 MG PO (21:02)
[2020-10-01] VITALS (19 sets, daily range): BP systolic 67–135; BP diastolic 45–77; PULSE 59–93; RESP 14–20; TEMP 36.3–36.9; O2SAT 90–98
[2020-10-01 06:10] LABS: Basophils % 0.2 %; Eosinophils # 0.2 10^3/uL (0.0-0.8); Eosinophils % 1.2 %; Hematocrit 35.4 % (37.0-47.0); Hemoglobin 10.9 g/dL (11.5-15.3); Lymphocytes # 0.8 10^3/uL (0.8-4.8); Lymphocytes % 6.2 %; Mean Corpuscular HGB Conc 30.8 g/dL (30.0-36.0); Mean Corpuscular Hemoglobin 27.1 pg (28.0-34.0); Mean Corpuscular Volume 88.1 fL (81-99); Mean Platelet Volume 9.9 fL (7.4-10.4); Monocytes # 0.8 10^3/uL (0.2-0.9); Monocytes % 6.3 %; Neutrophils # 11.12 10^3/uL (1.8-7.7); Neutrophils % 85.6 %; Nucleated Red Blood Cells % 0 %; Platelet Count 167 10^3/cmm (130-400); Red Blood Count 4.02 10^6/uL (4.1-5.3)
[2020-10-01 07:26] LABS: Coronavirus Lab Test PTC Negative
[2020-10-01] MEDS: cefTRIAXone 1,000 MG in sodium chloride 0.9% (plus) 50 ML 100 MG IV (07:31)
[2020-10-01] MEDS: dextrose 5%-sod chloride 0.45% 1,000 ML 75 ML IV ×2 (07:31→21:26)
--- NOTE | 2020-10-01 11:03 | PC.NURSE ---
PATIENT TAKEN TO PRE-OP.
[2020-10-01] MEDS: sodium chloride 0.9% 1,000 ML 30 ML IV (11:11)
[2020-10-01] MEDS: CELEcoxib 200 mg Capsule 400 MG PO (11:11)
--- NOTE | 2020-10-01 11:19 | W.PM.OPSUD ---
Surgery/Procedure H&P Update DATE OF PROCEDURE: October 01, 2020 DATE H&P PERFORMED: 09/29/20 H&P UPDATE INFORMATION: I have reviewed H&P completed within last 30 days, I have examined patient prior to procedure, No changes to prior documentation and H&P is in [facility] EMR on date indicated PREOP DIAGNOSIS: Displaced right subcapital hip fracture PLANNED PROCEDURE: Operation Date: 10/01/20 12:30 Proposed Procedures p Hemiarthroplasty Hip(Right) - Arleth Ivy MD Related Problem List Diagnoses (1) Subcapital fracture of right hip: Qualifiers: Encounter type: initial encounter Fracture type: closed Qualified Code(s): S72.011A - Unspecified intracapsular fracture of right femur, initial encounter for closed fracture
--- NOTE | 2020-10-01 11:58 | ANES.PREANE2 ---
Pre-Anesthetic Assessment Pre-Anesthetic Assessment: Height/Weight: Height 1.6 m Weight 52.617 kg Temp Pulse Resp BP Pulse Ox 98.2 F 62 18 105/57 91 10/01/20 11:07 10/01/20 11:07 10/01/20 11:07 10/01/20 11:07 10/01/20 11:07 Preop Diagnosis: Displaced right subcapital hip fracture Proposed Procedure: Operation Date: 10/01/20 12:30 Proposed Procedures p Hemiarthroplasty Hip(Right) - Arleth Ivy MD Familial anesthetic complications: None Was Beta Blane taken within 24 hours: Yes Last intake: Intake Last Liquid Date 09/30/20 Last Liquid Time 22:00 Last Solid Date 09/30/20 Last Solid Time 18:00 Social: Social History: No alcohol and No tobacco Exam: Pre-Anes Outpt Exam: alert, oriented x 3, clear to auscultation bilaterally and regular rate & rhythm Airway: Cervical ROM: WNL MP: 2 Dentition: Full CV/HEM: CV/HEM: Afib, CAD and HTN Comments: Sick sinus w/ pacer - recently interrogated, doing well S/p CABG in 2002 : Comments: UTI Metabolic: Metabolic: Hyperlipidemia Neuropsych: Comments: carotid artery stenosis Anesthetic Plan: ASA status: 4 Anesthesia: General and MAC Risk of > 500 ml blood loss (7ml/kg in children): No Meds/Allergies Current Medications: Current Medications Generic Name Dose Route Start Last Admin Trade Name Freq PRN Reason Stop Dose Admin Amlodipine Besylat e 2.5 mg 09/30/20 09:00 10/01/20 07:33 Norvasc PO Not Given DAILY JAILYN Atorvastatin Calci um 20 mg 09/29/20 21:00 09/30/20 21:02 Lipitor PO 20 mg BEDTIME JAILNY Administration Ceftriaxone Sodium 1,000 mg/ 50 mls @ 100 mls/ hr 09/30/20 07:00 10/01/20 07:31 Sodium Chloride IV 100 mls/hr Q24H JAILYN Administration Protocol Dextrose/Sodium Ch loride 1,000 mls @ 75 ml s/hr 09/30/20 19:45 10/01/20 07:31 Dextrose 5%-Sod Chloride 0.45% IV 75 mls/hr .[id number] JAILYN Administration Sodium Chloride 1,000 mls @ 30 ml s/hr 10/01/20 11:00 10/01/20 11:11 Sodium Chloride 0.9% IV 10/02/20 10:59 30 mls/hr .Q24H JAILYN Administration Lisinopril 20 mg 09/30/20 09:00 10/01/20 07:33 Prinivil PO Not Given BID [facility] Multivitamins Ther apeutic 1 tab 09/30/20 09:00 10/01/20 07:33 Multivitamin Tab PO Not Given DAILY [facility] [id number] Ethyl Esters 1,000 mg 09/30/20 09:00 10/01/20 07:33 [place]-3 Fatty Ac ids PO Not Given BID [facility] Oxycodone/Acetamin ophen 1 tab 09/29/20 19:46 09/30/20 21:01 Percocet 5-325 M g PO 1 tab Q4H PRN Administration moderate to sever e pain Pantoprazole Sodiu m 40 mg 09/30/20 09:00 10/01/20 07:33 Protonix PO Not Given DAILY [facility] Polyethylene Glyco l 17 gm 09/30/20 09:00 10/01/20 07:33 Miralax PO Not Given DAILY [facility] Senna/Docusate Sod ium 2 tab 09/30/20 09:00 10/01/20 07:33 Senna-S PO Not Given BID [facility] Sotalol HCl 80 mg 09/30/20 09:00 10/01/20 07:34 Betapace PO Not Given BID [facility] Additional Medication Information: Active Medications Generic Name Dose Route Start Last Admin Trade Name Freq PRN Reason Stop Dose Admin Acetaminophen 650 mg 09/29/20 19:46 Tylenol PO Q6H PRN Mild/Mod Pain Or Temp >/= 101 Amlodipine Besylat e 2.5 mg 09/30/20 09:00 Norvasc PO DAILY [facility] Atorvastatin Calci um 20 mg 09/29/20 21:00 09/29/20 20:58 Lipitor PO 20 mg BEDTIME [facility] Administration Ceftriaxone Sodium 1,000 mg/ 50 mls @ 100 mls/ hr 09/30/20 07:00 Sodium Chloride IV Q24H [facility] Protocol Lisinopril 20 mg 09/30/20 09:00 Prinivil PO BID [facility] Morphine Sulfate 2 mg 09/29/20 19:46 Morphine IVP Q4H PRN SEVERE PAIN Multivitamins Ther apeutic 1 tab 09/30/20 09:00 Multivitamin Tab PO DAILY JAILYN [id number] Ethyl Esters 1,000 mg 09/30/20 09:00 [place]-3 Fatty Ac ids PO BID [facility] Ondansetron HCl 4 mg 09/29/20 19:46 Zofran IVP Q6H PRN vomiting, or N/V if npo Oxycodone/Acetamin ophen 1 tab 09/29/20 19:46 Percocet 5-325 M g PO Q4H PRN moderate to sever e pain Pantoprazole Sodiu m 40 mg 09/30/20 09:00 Protonix PO DAILY [facility] Polyethylene Glyco l 17 gm 09/30/20 09:00 Miralax PO DAILY JAILYN Senna/Docusate Sod ium 2 tab 09/30/20 09:00 Senna-S PO BID [facility] Sotalol HCl 80 mg 09/30/20 09:00 Betapace PO BID [facility] No Known Allergies Allergy (Verified 09/29/20 16:23) PFSH Anesthesia PFSH: Medical History Anticoagulation adequate with anticoagulant therapy Eliquis Atrial fibrillation Carotid stenosis Hyperlipidemia Hypertension Sick sinus syndrome Surgical History 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 Pacemaker Status post aorto-coronary artery bypass graft -in 2002 Family History Grandmother CAD (coronary artery disease) Family/Other CAD (coronary artery disease) Denies family history of Diabetes Clotting disorder Dementia Hyperlipidemia Psychiatric illness Chronic kidney disease (CKD) Suicide Anesthesia complication Bleeding disorder Family history of premature coronary artery disease Lung disease Cancer Hypertension Stroke Social History Smoking and tobacco status: never smoked Alcohol intake: never Substance/Drug Use: never Lives independently: Yes Current occupational status: retired Data Anesthesia CBC & Chem 7: 10/01/20 06:00 09/29/20 17:05 Other Labs: Laboratory Results - last 48 hr 11/04/20 11/04/20 11/04/20 17:05 17:05 17:05 WBC 18.0 H RBC 4.40 Hgb 11.8 Hct 38.4 MCV 87.3 MCH 26.8 L MCHC 30.7 RDW 13.4 Plt Count 186 MPV 9.6 Neut % (Auto) 90.0 Lymph % (Auto) 3.8 [place] % (Auto) 5.4 Eos % (Auto) 0.1 Baso % (Auto) 0.3 Neut # (Auto) 16.19 H Lymph # (Auto) 0.7 L [place] # (Auto) 1.0 H Eos # (Auto) 0.0 Baso # (Auto) 0.1 Nucleated RBC % (auto) 0 Nucleated RBCs # 0.0 PT 15.20 H INR 1.16 Sodium 139 Potassium 3.8 Chloride 106 Carbon Dioxide 25 Anion Gap 11.8 BUN 13 Creatinine 0.8 GFR Calculation Not Reportable Glucose 138 H Calculated Osmolality 290 Calcium 8.2 L Total Bilirubin 0.7 AST 27 ALT 18 Alkaline Phosphatase 71 Total Protein 5.8 L Albumin 3.6 Globulin 2.2 Urine Color Urine Appearance Urine pH Ur Specific [place] Urine Protein Urine Glucose (UA) Urine Ketones Urine Blood Urine Nitrate Urine Bilirubin Urine Urobilinogen Ur Leukocyte Esterase Urine RBC Urine WBC Ur Squamous Epith Cells Amorphous Sediment Urine Bacteria Nasal/Oral COVID-19 PCR 09/29/20 09/29/20 09/30/20 17:28 18:55 02:12 WBC 14.8 H RBC 4.42 Hgb 11.8 Hct 38.8 MCV 87.8 MCH 26.7 L MCHC 30.4 RDW 13.7 Plt Count 188 MPV 9.9 Neut % (Auto) 90.2 Lymph % (Auto) 4.9 [place] % (Auto) 4.0 Eos % (Auto) 0.1 Baso % (Auto) 0.4 Neut # (Auto) 13.37 H Lymph # (Auto) 0.7 L [place] # (Auto) 0.6 Eos # (Auto) 0.0 Baso # (Auto) 0.1 Nucleated RBC % (auto) 0 Nucleated RBCs # 0.0 PT INR Sodium Potassium Chloride Carbon Dioxide Anion Gap BUN Creatinine GFR Calculation Glucose Calculated Osmolality Calcium Total Bilirubin AST ALT Alkaline Phosphatase Total Protein Albumin Globulin Urine Color Yellow Urine Appearance Hazy A Urine pH 7 Ur Specific [place] 1.010 Urine Protein Neg Urine Glucose (UA) Norm Urine Ketones 1+ H Urine Blood Neg Urine Nitrate Positive H Urine Bilirubin Neg Urine Urobilinogen Norm Ur Leukocyte Esterase Negative Urine RBC 0-4 H Urine WBC 0-4 H Ur Squamous Epith Cells 0-4 H Amorphous Sediment Not Reportable Urine Bacteria 4+ H Nasal/Oral COVID-19 PCR Negative 10/01/20 06:00 WBC 13.0 H RBC 4.02 L Hgb 10.9 L Hct 35.4 L MCV 88.1 MCH 27.1 L MCHC 30.8 RDW 14.0 Plt Count 167 MPV 9.9 Neut % (Auto) 85.6 Lymph % (Auto) 6.2 [place] % (Auto) 6.3 Eos % (Auto) 1.2 Baso % (Auto) 0.2 Neut # (Auto) 11.12 H Lymph # (Auto) 0.8 [place] # (Auto) 0.8 Eos # (Auto) 0.2 Baso # (Auto) 0.0 Nucleated RBC % (auto) 0 Nucleated RBCs # 0.0 PT INR Sodium Potassium Chloride Carbon Dioxide Anion Gap BUN Creatinine GFR Calculation Glucose Calculated Osmolality Calcium Total Bilirubin AST ALT Alkaline Phosphatase Total Protein Albumin Globulin Urine Color Urine Appearance Urine pH Ur Specific [place] Urine Protein Urine Glucose (UA) Urine Ketones Urine Blood Urine Nitrate Urine Bilirubin Urine Urobilinogen Ur Leukocyte Esterase Urine RBC Urine WBC Ur Squamous Epith Cells Amorphous Sediment Urine Bacteria Nasal/Oral COVID-19 PCR Micro: Microbiology 09/29/20 18:55 Urine Culture - Preliminary Urine,Clean Catch Gram Negative Rods 09/30/20 07:31 Blood Culture - Preliminary Blood NEGATIVE TO DATE 09/30/20 07:27 Blood Culture - Preliminary Blood NEGATIVE TO DATE Cardiac Studies: No Data to Display
--- NOTE | 2020-10-01 13:15 | PM.PN ---
Subjective Subjective: Interval history: NPO after midnight for OR today, had 300 mL urine output overnight. Noted to require some supplemental oxygen support overnight due to noted confusion when she had it off. Hemodynamically stable, afebrile. No pain meds needed overnight. Seen after return from OR, resting quietly in bed, denies pain currently, stable vital signs. Medications: Reviewed: Yes Medication Review Details: Current Medications Generic Name Dose Route Start Last Admin Trade Name Freq PRN Reason Stop Dose Admin Amlodipine Besylat e 2.5 mg 09/30/20 09:00 10/01/20 07:33 Norvasc PO Not Given DAILY JAILYN Atorvastatin Calci um 20 mg 09/29/20 21:00 09/30/20 21:02 Lipitor PO 20 mg BEDTIME JAILYN Administration Ceftriaxone Sodium 1,000 mg/ 50 mls @ 100 mls/ hr 09/30/20 07:00 10/01/20 07:31 Sodium Chloride IV 100 mls/hr Q24H JAILYN Administration Protocol Dextrose/Sodium Ch loride 1,000 mls @ 75 ml s/hr 09/30/20 19:45 10/01/20 07:31 Dextrose 5%-Sod Chloride 0.45% IV 75 mls/hr .[id number] JAILYN Administration Sodium Chloride 1,000 mls @ 30 ml s/hr 10/01/20 11:00 10/01/20 11:11 Sodium Chloride 0.9% IV 10/02/20 10:59 30 mls/hr .Q24H JAILYN Administration Lisinopril 20 mg 09/30/20 09:00 10/01/20 07:33 Prinivil PO Not Given BID [facility] Multivitamins Ther apeutic 1 tab 09/30/20 09:00 10/01/20 07:33 Multivitamin Tab PO Not Given DAILY JAILYN Jntiw-0-Vuhk Ethyl Esters 1,000 mg 09/30/20 09:00 10/01/20 07:33 [place]-3 Fatty Ac ids PO Not Given BID JAILYN Oxycodone/Acetamin ophen 1 tab 09/29/20 19:46 09/30/20 21:01 Percocet 5-325 M g PO 1 tab Q4H PRN Administration moderate to sever e pain Pantoprazole Sodiu m 40 mg 09/30/20 09:00 10/01/20 07:33 Protonix PO Not Given DAILY JAILYN Polyethylene Glyco l 17 gm 09/30/20 09:00 10/01/20 07:33 Miralax PO Not Given DAILY [facility] Senna/Docusate Sod ium 2 tab 09/30/20 09:00 10/01/20 07:33 Senna-S PO Not Given BID [facility] Sotalol HCl 80 mg 09/30/20 09:00 10/01/20 07:34 Betapace PO Not Given BID [facility] Vitals/I&O/Wt Last Vital Signs Temp 98.2 F 10/01/20 11:07 Pulse 62 10/01/20 11:07 Resp 18 10/01/20 11:07 BP 105/57 10/01/20 11:07 Pulse Ox 91 10/01/20 11:07 09/30/20 10/01/20 10/01/20 22:59 06:59 14:59 Intake Total 786.25 / 786.25 Output Total 400 / 400 200 / 600 Balance -400 / 130 -200 / -70 786.25 / 786.25 Weight last 48 hrs Weight 52.617 kg Weight 52.571 kg Weight 52.662 kg Weight 49.895 kg Physical Exam Const: COMMON NORMALS: no acute distress, patient oriented x3 and alert GENERAL APPEARANCE: cooperative and comfortable ORIENTATION/CONSCIOUSNESS: Yes awake OTHER: -looks younger than stated age, very pleasant HENMT: COMMON NORMALS: normocephalic, atraumatic, hearing grossly normal bilaterally and moist oral mucous membranes HEAD & SCALP: normocephalic and atraumatic Eye: COMMON NORMALS: Equal, round and reactive pupils present, EOMs intact bilaterally and conjunctivae normal CONJUNCTIVA: Yes conjunctivae normal PUPIL: Yes Equal, round and reactive pupils present Neck/C-Spine: COMMON NORMALS: full ROM GENERAL: Yes normal visual inspection and Yes trachea midline Chest: CHEST: Yes Pacemaker present Resp: COMMON NORMALS: normal respiratory effort, No retractions, No use of accessory muscles and clear to auscultation bilaterally EFFORT & INSPECTION: Yes able to speak in complete sentences, Yes symmetric chest movement and No tachypneic AUSCULTATION: clear to auscultation bilaterally OTHER: -on RA Cardio: COMMON NORMALS: regular rate, regular rhythm, S1 normal heart sound present, S2 normal heart sound present and No murmurs present (Cardio) RATE: regular rate RHYTHM: regular rhythm HEART SOUNDS: S1 normal heart sound present and S2 normal heart sound present GI: COMMON NORMALS: Normal to inspection, nondistended, normoactive bowel sounds present, Soft to palpation and non-tender INSPECTION: Yes GI ostomy present PALPATION: Yes Soft to palpation Extremity: COMMON NORMALS: no clubbing, cyanosis or edema and no pedal edema NARRATIVE EXTREMITY EXAM: -RLE: clean dressing on lateral hip, ice pack in place, adduction pillow in place Neuro: COMMON NORMALS: patient oriented x3, no focal motor deficits and no sensory deficits noted SENSORIUM/ORIENTATION: Yes alert Psych: COMMON NORMALS: mental status grossly normal, Normal thought process present, cooperative, normal affect and speech normal SPEECH: Yes normal speech THOUGHT PROCESS: Normal thought process present Skin: COMMON NORMALS: no rashes or lesions noted, no jaundice, no petechiae and no mottling GENERAL SKIN EXAM: no rashes or lesions noted Urinary Catheter Management^: Bagley: Cath Placed During This Visit: yes Reason for Continuing Indwelling Catheter: Acute Urinary Retention or Obstruction Urinary Catheter Date of Insertion: 09/29/20 Urinary Catheter Time of Insertion: 18:45 Data : 10/01/20 06:00 09/29/20 17:05 Micro: Microbiology 09/29/20 18:55 Urine Culture - Preliminary Urine,Clean Catch Gram Negative Rods 09/30/20 07:31 Blood Culture - Preliminary Blood NEGATIVE TO DATE 09/30/20 07:27 Blood Culture - Preliminary Blood NEGATIVE TO DATE A&P Assessment and plan (1) Subcapital fracture of right hip: -secondary to fall at home, precipitated by dizzy spell -x-ray reported as probable subcapital fracture and possible inferior pubic ramus fracture -Bagley catheter in place, anticipate removal post-op; continue to monitor urine output -Pain control as needed, bed rest pending surgery -Noted leukocytosis, chest x-ray negative, screening for COVID-19 for preop clearance, urinalysis indicative of infection. WBC trending down, start on Ceftriaxone -Orthopedic consult by Dr. Ivy appreciated -OR today, was NPO after midnight -AC on hold, was on Eliquis and aspirin, last doses taken 11/4 PM. -continue to monitor vital signs; stable -PT/OT evaluations post-op -shannan-op antibiotics Status: Acute Qualifiers: Encounter type: initial encounter Fracture type: closed Qualified Code(s): S72.011A - Unspecified intracapsular fracture of right femur, initial encounter for closed fracture (2) Hypertension: -continue to monitor vital signs; stable -continue oral antihypertensives Status: Chronic Qualifiers: Hypertension type: essential hypertension Qualified Code(s): I10 - Essential (primary) hypertension (3) Carotid stenosis: -carotid US (2016): < 50% stenosis bilaterally -on statin, ASA Status: Chronic Qualifiers: Laterality: bilateral Qualified Code(s): I65.23 - Occlusion and stenosis of bilateral carotid arteries (4) Hyperlipidemia: -continue statin Status: Chronic Qualifiers: Hyperlipidemia type: unspecified Qualified Code(s): E78.5 - Hyperlipidemia, unspecified (5) Atrial fibrillation: -telemetry monitoring -continue Sotalol -continue to hold Eliquis pending surgical intervention Status: Chronic Qualifiers: Atrial fibrillation type: unspecified Qualified Code(s): I48.91 - Unspecified atrial fibrillation (6) Sick sinus syndrome: -sick sinus syndrome s/p pacemaker placement (09/2017). Interrogated by Dr. Falk in 05/2020, functioning appropriately. 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; colostomy care as needed, patient has her own supplies at bedside -bowel regimen while on narcotics -Advanced age; very independent at baseline -hx of CAD s/p CABG (2002); follows up with cardiology -cardiac diet as tolerated; NPO after midnight -GI ppx with PPI -DVT ppx with SCDs, foot pumps; no AC in anticipation of surgery -Dispo: was living alone, may need SNF placement post-op, first choice is [facility] -Code status: DNR, ok with intubation if needed Attestations Medical Necessity Statement*: Patient requires hospitalization pending surgical intervention for right hip fracture, continue treatment of UTI pending urine culture. Time Spent in Patient Care: 16 - 35 minutes (>than 50% of time spent in counselling and/or direct pt care on unit). Coding Level of Care Code Acute Baffle Mounter for g Fwd Exam Comprehensive Diagnoses Subcapital fracture of right hip S72.011A Encounter type: initial encounter Fracture type: closed Hypertension I10 Hypertension type: essential hypertension Carotid stenosis I65.23 Laterality: bilateral Hyperlipidemia E78.5 Hyperlipidemia type: unspecified Atrial fibrillation I48.91 Atrial fibrillation type: unspecified Sick sinus syndrome I49.5 UTI (urinary tract infection) N30.00 Hematuria presence: without hematuria Urinary tract infection type: acute cystitis
[2020-10-01] MEDS: ceFAZolin 1,000 mg SDV 1000 MG IRRIGATION (14:26)
[2020-10-01] MEDS: vancomycin 1,000 MG SDV 1000 MG XX (14:26)
--- NOTE | 2020-10-01 15:24 | XRR_ITS ---
PROCEDURE INFORMATION: Exam: XR Pelvis Exam date and time: 10/01/2020 3:29 PM Age: 85 years old Clinical indication: Device placement; Other: Bipolar hip arthroplasty; Prior surgery; Surgery date: Post-operative (0-2 days); Additional info: Status post bipolar hip arthroplasty TECHNIQUE: Imaging protocol: XR pelvis. Views: 1 or 2 view. COMPARISON: CR XR hip RT 2-3V wo/w pel* [id number] 09/29/2020 3:59 PM FINDINGS: Bones/joints: Status post right hip hemiarthroplasty. Pelvic bones are intact. Soft tissues: Postop changes of the soft tissues are noted. Intraperitoneal space: Surgical clips are seen in the mid pelvis. XR/XR pelvis 1-2V* [id number] IMPRESSION: Status post right hip hemiarthroplasty.
--- NOTE | 2020-10-01 15:26 | P.OP_ITS ---
Operative Report Date of procedure: October 01, 2020 Pre-op Diagnosis: Displaced right subcapital hip fracture Post-op diagnosis: same Post-op Findings: Comminuted neck with displaced subcapital hip fracture right hip Procedure Done: Right bipolar hip arthroplasty Implants: [place] total hip system with the following components: Accolade II 1 27 degree neck angle hip stem size of 4 x 35 mm neck length with a 41 mm outer diameter universal bipolar component head by inner diameter 26 mm, and a femoral head size 26 mm outer diameter with a +4 mm offset Specimens removed/disposition: Femoral head, disposed of Pathology: none sent Surgeon: Arleth Ivy Fishing Tool Operator: [facility] OR technicians Anesthesia: General (Intubated, ASA 4) Estimated blood loss (mL): 75 IV fluids (mL): 500 Urine output (mL): 100 Complications: None Findings: 100% displacement of the femoral head secondary to subcapital hip fracture. The hip was stable to 90 degrees of flexion with 80 degrees of internal rotation and 30 degrees of adduction. Condition: stable Disposition: PACU (For postoperative rehabilitation) Brief History: This 85-year-old woman was in her usual state of health where she lives alone at home. She fell when she got lightheaded . She denied any other issue associated with her fall. She found herself on the floor and crawl to a phone to call for help. She was subsequently admitted through the emergency department to the hospital for definitive treatment. By x-ray, she was found to have a subcapital hip fracture. Procedure: The patient was brought to the operating theater, and after undergoing adequate general anesthesia, intubated, ASA 4, was transferred to the operating room table. The patient was placed in the full lateral position and held in place with the pegboard. Patient's right lower extremity was draped free and was subsequently prepped and further draped free. A surgical pause was performed prior to commencement of the surgical procedure. During the surgical pause, we confirmed the site and side of surgery and administration of preoperative Ancef, 2 g and TXA 1 g as well as availability of equipment. Additionally, we confirmed preoperative surgical markings. X-rays are also reviewed during this time. Following the surgical pause, an incision was made centering over the greater trochanter continuing proximally and distally as necessary to allow access to the hip joint. Dissection continued through skin and soft tissue using a s calpel. Hemostasis was obtained using electrocautery. Tensor fascia arminda was identified and incised longitudinally. Sciatic nerve was identified and protected throughout the surgical procedure. A [place]arn[place] U retractor was placed with care being taken to protect the sciatic nerve during placement. The hip was internally rotated. Piriformis muscle was then identified, tagged, and subsequently incised from the posterior aspect of the hip joint. The remaining short external rotators were also incised. These were then elevated off the capsule and the capsule was entered in a T-type fashion. Each side of the capsule was then tagged. The proximal femur was brought into an appropriate position and a femoral neck osteotomy was accomplished. This was in appropriate position for placement of the prosthetic component. Femoral head was then removed from the acetabulum utilizing a corkscrew. It was subsequently measured. The appropriate size trial was chosen. This was a size 41 mm which fit nicely. A 42 mm was also trialed but seemed to large. Therefore size 41 mm was the chosen size for final implantation. Femoral patient intake representative was then placed and attention was directed to the proximal femur. Initially, the proximal femur was addressed with a box chisel, and this was followed by a canal finder and subsequently broaches. The hip was broached to a size 4 stem. Size 4 broach was noted to fit nicely and have good fit and fill. Therefore this was to be the chosen component. Trial reduction was accomplished with a 41 mm by 26 mm universal head component bipolar and a 26 mm with a +4 offset femoral head. With this, the above-noted stabilities were accomplished. This was felt to be appropriate and therefore trial components were removed and the hip was irrigated. Acetabulum was evaluated for any loose bodies or other soft tissues requiring resection. We then prepared for implantation. The size 4 Accolade II 127 degree femoral stem was impacted into position. This was placed without difficulty. Onto this was placed the construct of the 41 mm outer diameter bipolar universal head with a 26 mm inner diameter, and the 26 mm diameter +4 neck length femoral head. This was placed onto the trunnion of the femoral component. It was impacted into position and pulled upon to assure that there was no dissociation. Once again the hip was irrigated and suctioned dry and was reduced. We then irrigated the hip further with 20 mL of Betadine mixed into 500 mL of normal saline. This was allowed to remain in the wound for approximately 3 minutes. It was then suctioned dry and irrigated with normal saline. This was suctioned dry again and closure was accomplished with 0 Vicryl in the capsular tissues followed by reattachment of the piriformis with 0 Vicryl. Additionally, the tensor was closed with 0 Vicryl in an interrupted fashion. Subcutaneous tissues were closed with 2-0 Monocryl. Skin was closed with 3-0 Monocryl. This was followed by Exofin and Steri-Strips. A sterile dressing was p laced consisting of Telfa and Tegaderm. The patient was returned the Recovery Room in satisfactory condition. There were no complications. The patient will be discharged to the floor for postoperative rehabilitation and pain management. Associated Problem List Diagnoses (1) Subcapital fracture of right hip: Qualifiers: Encounter type: initial encounter Fracture type: closed Qualified Code(s): S72.011A - Unspecified intracapsular fracture of right femur, initial encounter for closed fracture
--- NOTE | 2020-10-01 15:30 | ANE.PACU2 ---
Inpatient post-anesthesia follow up: Airway intact: Yes Vital signs: Temperature 97.8 F Pulse Rate [Apical ] 73 Pulse Rate 72 Respiratory Rate 17 Blood Pressure [Ri ght Arm] 140/78 Blood Pressure 126/72 Pulse Oximetry 94 Oxygen Delivery Me thod Room Air Oxygen Flow Rate 3 Fraction of Inspir ed Oxygen Hydration adequate: Yes Nausea and vomiting: No Pain level: 2 Mental status: Baseline
[2020-10-01] MEDS: sennosides-docusate Tablet 2 TAB PO (16:52)
[2020-10-01] MEDS: calcium carbonate 500 mg Chew Tablet 1000 MG PO (16:52)
[2020-10-01] MEDS: chlorhexidine gluconate 0.12% Btl 473 mL 30 ML MUCOUS MEM ×2 (16:53→20:19)
[2020-10-01] MEDS: iron polysaccharide complex 150 mg Capsule PO (16:53)
[2020-10-01] MEDS: atorvastatin 40 mg Tablet 20 MG PO (20:18)
[2020-10-02] VITALS (11 sets, daily range): BP systolic 110–136; BP diastolic 64–74; PULSE 60–78; RESP 16–18; TEMP 36.5–37.1; O2SAT 91–97; BMI 20.5
--- NOTE | 2020-10-02 06:08 | PC.NURSE ---
Shift Summary Patient has rested comfortably throughout the night. No complaints of pain, no pain medication administered. Patient's ice changed. Dressing to right hip remained intact, clean, and dry. Neurovascular assessments have been normal.
[2020-10-02 06:18] LABS: Basophils % 0.3 %; Eosinophils # 0.3 10^3/uL (0.0-0.8); Eosinophils % 2.6 %; Hematocrit 33.9 % (37.0-47.0); Hemoglobin 10.4 g/dL (11.5-15.3); Lymphocytes # 1.1 10^3/uL (0.8-4.8); Mean Corpuscular HGB Conc 30.7 g/dL (30.0-36.0); Mean Corpuscular Hemoglobin 27.4 pg (28.0-34.0); Mean Corpuscular Volume 89.2 fL (81-99); Mean Platelet Volume 10.6 fL (7.4-10.4); Monocytes # 0.8 10^3/uL (0.2-0.9); Monocytes % 7.7 %; Neutrophils # 8.24 10^3/uL (1.8-7.7); Neutrophils % 78.8 %; Nucleated Red Blood Cells % 0 %; Platelet Count 152 10^3/cmm (130-400); Red Cell Distribution Width 13.8 % (12.1-15.1); White Blood Count 10.5 10^3/uL (4.0-10.0)
[2020-10-02 06:57] LABS: Blood Urea Nitrogen 24 mg/dL (8-23); Calcium 8.4 mg/dL (8.5-10.5); Carbon Dioxide 24 mmol/L (22-29); Chloride 100 mmol/L (98-107); Glucose 156 mg/dL (65-115); Osmolality Calculated 281 mOsm/kg (285-295); Sodium 132 mmol/L (136-145)
--- NOTE | 2020-10-02 08:05 | ANE.PACU2 ---
Inpatient post-anesthesia follow up: Airway intact: Yes Vital signs: Temperature 97.9 F Pulse Rate [Apical ] 73 Pulse Rate 61 Respiratory Rate 16 Blood Pressure [Ri ght Arm] 140/78 Blood Pressure 125/74 Pulse Oximetry 97 Oxygen Delivery Me thod Room Air Oxygen Flow Rate 3 Fraction of Inspir ed Oxygen Hydration adequate: Yes Nausea and vomiting: No Pain level: 1 Mental status: Baseline
[2020-10-02] MEDS: cefTRIAXone 1,000 MG in sodium chloride 0.9% (plus) 50 ML 100 MG IV (08:11)
[2020-10-02] MEDS: sennosides-docusate Tablet 2 TAB PO (08:12)
[2020-10-02] MEDS: calcium carbonate 500 mg Chew Tablet 1000 MG PO ×2 (08:12→17:24)
[2020-10-02] MEDS: lisinopril 20 mg Tablet PO ×2 (08:13→17:24)
[2020-10-02] MEDS: aspirin 325 mg EC Tablet PO (08:13)
[2020-10-02] MEDS: polyethylene glycol 3350 Pkt 17 gm PO (08:13)
[2020-10-02] MEDS: amlodipine 5 mg Tablet 2.5 MG PO (08:13)
[2020-10-02] MEDS: iron polysaccharide complex 150 mg Capsule PO ×2 (08:13→17:24)
[2020-10-02] MEDS: multivitamin therapeutic Tablet 1 TAB PO (08:13)
[2020-10-02] MEDS: pantoprazole DR 40 mg Tablet PO (08:15)
[2020-10-02] MEDS: sotalol 80 mg Tablet PO ×2 (08:15→17:24)
[2020-10-02] MEDS: cholecalciferol (vitamin D3) 1,000 unit Tablet 1000 UNIT PO (08:15)
[2020-10-02] MEDS: CELEcoxib 200 mg Capsule PO (08:16)
[2020-10-02] MEDS: omega-3 fatty acids 1,000 mg Capsule 1000 MG PO ×2 (08:17→17:24)
[2020-10-02] MEDS: chlorhexidine gluconate 0.12% Btl 473 mL 30 ML MUCOUS MEM ×3 (08:19→20:52)
[2020-10-02 08:24] LABS: Anion Gap 12.5 (5-19); Potassium 4.5 mmol/L (3.5-5.1)
[2020-10-02] MEDS: mupirocin oint 22 gm 1 APPLIC NASAL ×2 (09:33→17:26)
--- NOTE | 2020-10-02 10:14 | DCPLANNER ---
Pg 2 of IM updated and reviewed with pt. No questions, copy provided.
--- NOTE | 2020-10-02 10:54 | PM.PN ---
Subjective Subjective: Interval history: Hemodynamically stable, afebrile, on room air, had 550 mL urine output overnight, Bagley catheter discontinued this morning. She is POD # 1 s/p right bipolar hip arthroplasty. Trying to decide between SNF placement and home with home health pending PT and OT evaluations. Sitting up in bed, has done well today including with therapy, was able to ambulate with walker to/from the bathroom. Concerned about navigating steps at home but does want to return home on discharge. Medications: Reviewed: Yes Medication Review Details: Active Medications Generic Name Dose Route Start Last Admin Trade Name Freq PRN Reason Stop Dose Admin Acetaminophen 650 mg 09/29/20 19:46 Tylenol PO Q6H PRN Mild/Mod Pain Or Temp >/= 101 Acetaminophen 1,000 mg 10/02/20 19:00 Tylenol PO Q8H JAILYN Amlodipine Besylat e 2.5 mg 09/30/20 09:00 10/02/20 08:13 Norvasc PO 2.5 mg DAILY JAILYN Administration Aspirin 325 mg 10/02/20 09:00 10/02/20 08:13 Aspirin Ec PO 325 mg DAILY JAILYN Administration Atorvastatin Calci um 20 mg 09/29/20 21:00 10/01/20 20:18 Lipitor PO 20 mg BEDTIME JAILYN Administration Calcium Carbonate 1,000 mg 10/01/20 18:00 10/02/20 08:12 Tums PO 1,000 mg BID JAILYN Administration Celecoxib 200 mg 10/02/20 09:00 10/02/20 08:16 Celebrex PO 200 mg DAILY JAIYLN Administration Chlorhexidine Gluc ana 30 ml 10/01/20 17:00 10/02/20 08:19 Perigard MUCOUS MEM 30 ml QID JAILYN Administration Ceftriaxone Sodium 1,000 mg/ 50 mls @ 100 mls/ hr 09/30/20 07:00 10/02/20 08:11 Sodium Chloride IV 100 mls/hr Q24H JAILYN Administration Protocol Acetaminophen 1,000 mg in 100 m ls @ 400 mls/hr 10/01/20 19:00 10/02/20 02:00 Ofirmev IV 10/02/20 11:14 400 mls/hr Q8H JAILYN Administration Lisinopril 20 mg 09/30/20 09:00 10/02/20 08:13 Prinivil PO 20 mg BID JAILYN Administration Morphine Sulfate 2 mg 09/29/20 19:46 Morphine IVP Q4H PRN SEVERE PAIN Multivitamins Ther apeutic 1 tab 09/30/20 09:00 10/02/20 08:13 Multivitamin Tab PO 1 tab DAILY JAILYN Administration Multivitamins Ther apeutic 1 tab 10/02/20 09:00 10/02/20 08:19 Multivitamin Tab PO Not Given DAILY JAILYN Mupirocin 1 applic 10/01/20 18:00 10/02/20 09:33 Bactroban NASAL 10/06/20 17:59 1 applic BID JAILYN Administration Naloxone HCl 0.1 mg 10/01/20 15:51 Narcan IVP Q2M PRN Respiratory rate less than 8. [id number] Ethyl Esters 1,000 mg 09/30/20 09:00 10/02/20 08:17 [place]-3 Fatty Ac ids PO 1,000 mg BID JAILYN Administration Ondansetron HCl 4 mg 09/29/20 19:46 Zofran IVP Q6H PRN vomiting, or N/V if npo Ondansetron HCl 4 mg 10/01/20 15:51 Zofran IVP Q6H PRN NAUSEA AND VOMITI NG Oxycodone HCl 5 mg 10/01/20 15:51 Oxycodone Ir PO Q4H PRN MODERATE PAIN Pantoprazole Sodiu m 40 mg 09/30/20 09:00 10/02/20 08:15 Protonix PO 40 mg DAILY JAILYN Administration Polyethylene Glyco l 17 gm 09/30/20 09:00 10/02/20 08:13 Miralax PO 17 gm DAILY JAILYN Administration Polysaccharide Iro n Complex 150 mg 10/01/20 18:00 10/02/20 08:13 Ferrex PO 150 mg BIDWM JAILYN Administration Senna/Docusate Sod ium 2 tab 10/01/20 18:00 10/02/20 08:12 Senna-S PO 2 tab BID JAILYN Administration Sotalol HCl 80 mg 09/30/20 09:00 10/02/20 08:15 Betapace PO 80 mg BID JAILYN Administration Tramadol HCl 50 mg 10/01/20 15:51 Ultram PO Q4H PRN MILD TO MODERATE PAIN Vitamin D 1,000 unit 10/02/20 09:00 10/02/20 08:15 Vitamin D3 PO 1,000 unit DAILY JAILYN Administration No Known Allergies Allergy (Verified 09/29/20 16:23) Vitals/I&O/Wt Last Vital Signs Temp 98.7 F 10/02/20 08:00 Pulse 60 10/02/20 08:00 Resp 16 10/02/20 08:00 BP 136/74 10/02/20 08:00 Pulse Ox 96 10/02/20 08:00 10/01/20 10/02/20 10/02/20 22:59 06:59 14:59 Intake Total 340 / 1336.25 Output Total 575 / 575 550 / 1125 700 / 700 Balance -235 / 761.25 -550 / 211.25 -700 / -700 Weight last 48 hrs Weight 52.617 kg Physical Exam Const: COMMON NORMALS: no acute distress, patient oriented x3 and alert GENERAL APPEARANCE: cooperative and comfortable ORIENTATION/CONSCIOUSNESS: Yes awake OTHER: -looks younger than stated age, very pleasant HENMT: COMMON NORMALS: normocephalic, atraumatic, hearing grossly normal bilaterally and moist oral mucous membranes HEAD & SCALP: normocephalic and atraumatic Eye: COMMON NORMALS: Equal, round and reactive pupils present, EOMs intact bilaterally and conjunctivae normal CONJUNCTIVA: Yes conjunctivae normal PUPIL: Yes Equal, round and reactive pupils present Neck/C-Spine: COMMON NORMALS: full ROM GENERAL: Yes normal visual inspection and Yes trachea midline Chest: CHEST: Yes Pacemaker present Resp: COMMON NORMALS: normal respiratory effort, No retractions, No use of accessory muscles and clear to auscultation bilaterally EFFORT & INSPECTION: Yes able to speak in complete sentences, Yes symmetric chest movement and No tachypneic AUSCULTATION: clear to auscultation bilaterally OTHER: -on RA Cardio: COMMON NORMALS: regular rate, regular rhythm, S1 normal heart sound present, S2 normal heart sound present and No murmurs present (Cardio) RATE: regular rate RHYTHM: regular rhythm HEART SOUNDS: S1 normal heart sound present and S2 normal heart sound present GI: COMMON NORMALS: Normal to inspection, nondistended, normoactive bowel sounds present, Soft to palpation and non-tender INSPECTION: Yes GI ostomy present PALPATION: Yes Soft to palpation Extremity: COMMON NORMALS: no clubbing, cyanosis or edema and no pedal edema NARRATIVE EXTREMITY EXAM: -RLE: clean dressing on lateral hip, no apparent hematoma Neuro: COMMON NORMALS: patient oriented x3, no focal motor deficits and no sensory deficits noted SENSORIUM/ORIENTATION: Yes alert Psych: COMMON NORMALS: mental status grossly normal, Normal thought process present, cooperative, normal affect and speech normal SPEECH: Yes normal speech THOUGHT PROCESS: Normal thought process present Skin: COMMON NORMALS: no rashes or lesions noted, no jaundice, no petechiae and no mottling GENERAL SKIN EXAM: no rashes or lesions noted Urinary Catheter Management^: Bagley: Cath Placed During This Visit: yes, but has since been removed by the nurse Reason for Continuing Indwelling Catheter: Decision to DC Catheter Urinary Catheter Date of Insertion: 09/29/20 Urinary Catheter Time of Insertion: 18:45 Date Urinary Catheter Removed: 10/02/20 Time Urinary Catheter Discontinued: 08:15 Data : 10/02/20 05:39 10/02/20 05:39 Micro: Microbiology 09/29/20 18:55 Urine Culture - Final Urine,Clean Catch Escherichia coli 09/30/20 07:31 Blood Culture - Preliminary Blood NEGATIVE TO DATE 09/30/20 07:27 Blood Culture - Preliminary Blood NEGATIVE TO DATE A&P Assessment and plan (1) Subcapital fracture of right hip: -secondary to fall at home, precipitated by dizzy spell -x-ray reported as probable subcapital fracture and possible inferior pubic ramus fracture -Bagley catheter discontinued this AM and has been able to void independently -Pain control as needed -Orthopedic consult by Dr. Ivy appreciated -POD # 1 s/p R bipolar hip arthroplasty; EBL-75 mL -Eliquis on hold, on full dose ASA for DVT ppx -continue to monitor vital signs; stable -PT/OT evaluations post-op Status: Acute Qualifiers: Encounter type: initial encounter Fracture type: closed Qualified Code(s): S72.011A - Unspecified intracapsular fracture of right femur, initial encounter for closed fracture (2) Hypertension: -continue to monitor vital signs; stable -continue oral antihypertensives Status: Chronic Qualifiers: Hypertension type: essential hypertension Qualified Code(s): I10 - Essential (primary) hypertension (3) Carotid stenosis: -carotid US (2017): < 50% stenosis bilaterally -on statin, ASA Status: Chronic Qualifiers: Laterality: bilateral Qualified Code(s): I65.23 - Occlusion and stenosis of bilateral carotid arteries (4) Hyperlipidemia: -continue statin Status: Chronic Qualifiers: Hyperlipidemia type: unspecified Qualified Code(s): E78.5 - Hyperlipidemia, unspecified (5) Atrial fibrillation: -telemetry monitoring -continue Sotalol -continue to hold Eliquis, now on full dose ASA Status: Chronic Qualifiers: Atrial fibrillation type: unspecified Qualified Code(s): I48.91 - Unspecified atrial fibrillation (6) Sick sinus syndrome: -sick sinus syndrome s/p pacemaker placement (09/2017). Interrogated by Dr. Falk in 05/2020, functioning appropriately. 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 Time Spent in Patient Care: 16 - 35 minutes (>than 50% of time spent in counselling and/or direct pt care on unit). Coding Level of Care Code Acute [place] [employer] for [facility] Fwd Exam Comprehensive Diagnoses Subcapital fracture of right hip S72.011A Encounter type: initial encounter Fracture type: closed Hypertension I10 Hypertension type: essential hypertension Carotid stenosis I65.23 Laterality: bilateral Hyperlipidemia E78.5 Hyperlipidemia type: unspecified Atrial fibrillation I48.91 Atrial fibrillation type: unspecified Sick sinus syndrome I49.5 UTI (urinary tract infection) N30.00 Hematuria presence: without hematuria Urinary tract infection type: acute cystitis
--- NOTE | 2020-10-02 13:12 | P.PN_ITS ---
Subjective Subjective: Interval history: Patient is doing well. She has been up with physical therapy. Her hope is to go to go home with home health. This could occur as soon as tomorrow. The patient is encouraged by this news. Medications: Reviewed: Yes Medication Review Details: Patient will continue on aspirin 325 mg daily for DVT prophylaxis. We will determine which pain medication she would like to be sent home with. Vitals/I&O/Wt Last Vital Signs Temp 98.0 F 10/02/20 13:01 Pulse 62 10/02/20 13:01 Resp 16 10/02/20 13:01 BP 111/66 10/02/20 13:01 Pulse Ox 94 10/02/20 13:01 10/01/20 10/02/20 10/02/20 22:59 06:59 14:59 Intake Total 340 / 1336.25 100 / 1436.25 Output Total 575 / 575 550 / 1125 700 / 700 Balance -235 / 761.25 -450 / 311.25 -700 / -700 Weight last 48 hrs Weight 116 lb Physical Exam Const: COMMON NORMALS: no acute distress, average body habitus, patient oriented x3 and alert GENERAL APPEARANCE: cooperative and comfortable ORIENTATION/CONSCIOUSNESS: Yes awake HENMT: COMMON NORMALS: normocephalic and atraumatic HEAD & SCALP: normocephalic and atraumatic Eye: GENERAL EYE: appearance normal, both eyes and all related structures Chest: COMMONS NORMALS: normal inspection of the chest Resp: COMMON NORMALS: normal respiratory effort EFFORT & INSPECTION: Yes able to speak in complete sentences and Yes symmetric chest movement Extremity: GENERAL: Yes normal exam except as noted RIGHT LOWER EXTREMITY: Yes hip joint (No significant ecchymosis. Patient denies any significant pain.) Right hip: Yes inspection (Dressing is dry. The thigh is soft and nontender.), Yes palpation (No tenderness to palpation.), Yes ROM (Not evaluated.) and Yes neurovascular exam (Intact distal to the surgical site with no evidence of DVT) Neuro: COMMON NORMALS: patient oriented x3 SENSORIUM/ORIENTATION: Yes alert Psych: COMMON NORMALS: mental status grossly normal APPEARANCE: Yes grossly normal ATTITUDE: Yes calm and Yes engaged ATTENTION/CONCENTRATION: Yes attention grossly intact Skin: COMMON NORMALS: no rashes or lesions noted GENERAL SKIN EXAM: no rashes or lesions noted Urinary Catheter Management^: Bagley: Cath Placed During This Visit: yes, but has since been removed by the nurse Reason for Continuing Indwelling Catheter: Decision to DC Catheter Urinary Catheter Date of Insertion: 09/29/20 Urinary Catheter Time of Insertion: 18:45 Date Urinary Catheter Removed: 10/02/20 Time Urinary Catheter Discontinued: 08:15 Data : 10/02/20 05:39 10/02/20 05:39 Micro: Microbiology 09/29/20 18:55 Urine Culture - Final Urine,Clean Catch Escherichia coli 09/30/20 07:31 Blood Culture - Preliminary Blood NEGATIVE TO DATE 09/30/20 07:27 Blood Culture - Preliminary Blood NEGATIVE TO DATE A&P Assessment and plan (1) Subcapital fracture of right hip: Patient is seen today following right bipolar hip arthroplasty which was well-tolerated. She has been up with physical therapy and tolerated this well. They have instructed her in posterior hip precautions. She will have to follow these when she is home. I feel she would likely benefit from home health, and after discussion with the patient's daughter, they will consider home health as opposed to snf. This will be determined by the hospitalist team. Status: Acute Qualifiers: Encounter type: initial encounter Fracture type: closed Qualified Code(s): S72.011A - Unspecified intracapsular fracture of right femur, initial encounter for closed fracture (2) History of right hip hemiarthroplasty: Status: Acute Attestations Medical Necessity Statement*: Ongoing hospitalization for rehabilitation and postoperative stabilization. Coding Level of Care Code Acute Sample [employer] for [facility] Diagnoses Subcapital fracture of right hip S72.011A Encounter type: initial encounter Fracture type: closed History of right hip hemiarthroplasty Z96.641
--- NOTE | 2020-10-02 14:14 | PC.NURSE ---
Patient voided while she was up with Physical Therapy this morning. Physical Therapy stated this as well as the patient.
[2020-10-02] MEDS: cefUROXime 250 mg Tablet PO (17:24)
--- NOTE | 2020-10-02 19:02 | PC.NURSE ---
End of shift report Patient did well today with therapy. Patient ambulated to the bathroom with her walker and 1 assist. Patient denies any pain. Patient discharge is completed by Dr. Ivy who states if home health can be set up patient could go tomorrow as far as she is concerned.
[2020-10-02] MEDS: atorvastatin 40 mg Tablet 20 MG PO (20:51)
[2020-10-03] VITALS: BP 147/75; PULSE 65; RESP 16; TEMP 36.5; O2SAT 92
[2020-10-03] MEDS: acetaminophen 500 mg Tablet 1000 MG PO ×3 (02:39→17:58)
[2020-10-03 03:45] LABS: Basophils # 0.1 10^3/uL (0.0-0.1); Basophils % 0.7 %; Eosinophils # 0.4 10^3/uL (0.0-0.8); Eosinophils % 4.1 %; Hematocrit 29.1 % (37.0-47.0); Hemoglobin 8.9 g/dL (11.5-15.3); Lymphocytes # 1.2 10^3/uL (0.8-4.8); Lymphocytes % 12.9 %; Mean Corpuscular HGB Conc 30.6 g/dL (30.0-36.0); Mean Corpuscular Hemoglobin 27.1 pg (28.0-34.0); Mean Corpuscular Volume 88.4 fL (81-99); Mean Platelet Volume 10.4 fL (7.4-10.4); Monocytes # 0.9 10^3/uL (0.2-0.9); Monocytes % 9.3 %; Neutrophils # 6.89 10^3/uL (1.8-7.7); Neutrophils % 72.4 %; Nucleated Red Blood Cells % 0 %; Platelet Count 176 10^3/cmm (130-400); Red Blood Count 3.29 10^6/uL (4.1-5.3); Red Cell Distribution Width 13.9 % (12.1-15.1); White Blood Count 9.5 10^3/uL (4.0-10.0)
[2020-10-03 04:00] VITALS: BP 122/65; PULSE 63; RESP 16; TEMP 36.9; O2SAT 92
--- NOTE | 2020-10-03 05:42 | PC.NURSE ---
Shift summary Patient has slept well throughout the night. She denies any pain to the right upper hip. She started having pain on the top of her right foot just recently this morning. There is no redness to the area or swelling. Patients RBC are 3.29 HGB 8.9 and HCT 29.1. The dressing to the right upper hip is dry. No bleeding noted. Doctor was notified of results. Will pass off to dayshift. Patient has discharge orders to go home today.
[2020-10-03 07:15] VITALS: BP 134/74; PULSE 59; RESP 16; TEMP 36.5; O2SAT 95
[2020-10-03] MEDS: CELEcoxib 200 mg Capsule PO (08:48)
[2020-10-03] MEDS: sennosides-docusate Tablet 2 TAB PO (08:48)
[2020-10-03] MEDS: lisinopril 20 mg Tablet PO ×2 (08:48→17:53)
[2020-10-03] MEDS: pantoprazole DR 40 mg Tablet PO (08:48)
[2020-10-03] MEDS: omega-3 fatty acids 1,000 mg Capsule 1000 MG PO ×2 (08:48→17:53)
[2020-10-03] MEDS: multivitamin therapeutic Tablet 1 TAB PO (08:48)
[2020-10-03] MEDS: aspirin 325 mg EC Tablet PO (08:48)
[2020-10-03] MEDS: calcium carbonate 500 mg Chew Tablet 1000 MG PO ×2 (08:48→17:53)
[2020-10-03] MEDS: amlodipine 5 mg Tablet 2.5 MG PO (08:49)
[2020-10-03] MEDS: cholecalciferol (vitamin D3) 1,000 unit Tablet 1000 UNIT PO (08:49)
[2020-10-03] MEDS: cefUROXime 250 mg Tablet PO ×2 (08:49→17:53)
[2020-10-03] MEDS: sotalol 80 mg Tablet PO ×2 (08:49→17:53)
[2020-10-03] MEDS: chlorhexidine gluconate 0.12% Btl 473 mL 30 ML MUCOUS MEM ×4 (08:52→20:44)
[2020-10-03] MEDS: mupirocin oint 22 gm 1 APPLIC NASAL (08:53)
[2020-10-03 10:00] VITALS: BMI 22.1
--- NOTE | 2020-10-03 10:56 | P.PN_ITS ---
Subjective Subjective: Interval history: POD # 2 s/p R bipolar hip arthroplasty, hemodynamically stable, afebrile, had 900 mL urine output overnight. Has been voiding well since Bagley catheter removal, good appetite, did well with therapy today and ambulated down the hallway. Plan for stair training tomorrow. Medications: Reviewed: Yes Medication Review Details: Active Medications Generic Name Dose Route Start Last Admin Trade Name Freq PRN Reason Stop Dose Admin Acetaminophen 650 mg 09/29/20 19:46 Tylenol PO Q6H PRN Mild/Mod Pain Or Temp >/= 101 Acetaminophen 1,000 mg 10/02/20 19:00 10/03/20 02:39 Tylenol PO 1,000 mg Q8H JAILYN Administration Amlodipine Besylat e 2.5 mg 09/30/20 09:00 10/03/20 08:49 Norvasc PO 2.5 mg DAILY JAILYN Administration Aspirin 325 mg 10/02/20 09:00 10/03/20 08:48 Aspirin Ec PO 325 mg DAILY JAILYN Administration Atorvastatin Calci um 20 mg 09/29/20 21:00 10/02/20 20:51 Lipitor PO 20 mg BEDTIME JAILYN Administration Calcium Carbonate 1,000 mg 10/01/20 18:00 10/03/20 08:48 Tums PO 1,000 mg BID JAILYN Administration Cefuroxime Axetil 250 mg 10/02/20 18:00 10/03/20 08:49 Ceftin PO 250 mg BID JAILYN Administration Protocol Celecoxib 200 mg 10/02/20 09:00 10/03/20 08:48 Celebrex PO 200 mg DAILY JAILYN Administration Chlorhexidine Gluc ana 30 ml 10/01/20 17:00 10/03/20 08:52 Perigard MUCOUS MEM 30 ml QID JAILYN Administration Lisinopril 20 mg 09/30/20 09:00 10/03/20 08:48 Prinivil PO 20 mg BID JAILYN Administration Morphine Sulfate 2 mg 09/29/20 19:46 Morphine IVP Q4H PRN SEVERE PAIN Multivitamins Ther apeutic 1 tab 09/30/20 09:00 10/03/20 08:48 Multivitamin Tab PO 1 tab DAILY JAILYN Administration Multivitamins Ther apeutic 1 tab 10/02/20 09:00 10/03/20 08:52 Multivitamin Tab PO Not Given DAILY [facility] Mupirocin 1 applic 10/01/20 18:00 10/03/20 08:53 Bactroban NASAL 10/06/20 17:59 1 applic BID JAILYN Administration Naloxone HCl 0.1 mg 10/01/20 15:51 Narcan IVP Q2M PRN Respiratory rate less than 8. [id number] Ethyl Esters 1,000 mg 09/30/20 09:00 10/03/20 08:48 [place]-3 Fatty Ac ids PO 1,000 mg BID JALIYN Administration Ondansetron HCl 4 mg 09/29/20 19:46 Zofran IVP Q6H PRN vomiting, or N/V if npo Ondansetron HCl 4 mg 10/01/20 15:51 Zofran IVP Q6H PRN NAUSEA AND VOMITI NG Oxycodone HCl 5 mg 10/01/20 15:51 Oxycodone Ir PO Q4H PRN MODERATE PAIN Pantoprazole Sodiu m 40 mg 09/30/20 09:00 10/03/20 08:48 Protonix PO 40 mg DAILY JAILYN Administration Polyethylene Glyco l 17 gm 09/30/20 09:00 10/03/20 08:53 Miralax PO Not Given DAILY JAILYN Polysaccharide Iro n Complex 150 mg 10/01/20 18:00 10/03/20 08:53 Ferrex PO Not Given BIDWM JAILYN Senna/Docusate Sod ium 2 tab 10/01/20 18:00 10/03/20 08:48 Senna-S PO 2 tab BID JAILYN Administration Sotalol HCl 80 mg 09/30/20 09:00 10/03/20 08:49 Betapace PO 80 mg BID JAILYN Administration Tramadol HCl 50 mg 10/01/20 15:51 Ultram PO Q4H PRN MILD TO MODERATE PAIN Vitamin D 1,000 unit 10/02/20 09:00 10/03/20 08:49 Vitamin D3 PO 1,000 unit DAILY JAILYN Administration No Known Allergies Allergy (Verified 09/29/20 16:23) Vitals/I&O/Wt Last Vital Signs Temp 97.7 F 10/03/20 07:15 Pulse 59 L 10/03/20 07:15 Resp 16 10/03/20 07:15 BP 134/74 10/03/20 07:15 Pulse Ox 95 10/03/20 07:15 10/02/20 10/03/20 10/03/20 22:59 06:59 14:59 Intake Total 240 / 360 220 / 220 Output Total 300 / 1000 600 / 1600 400 / 400 Balance -300 / -880 -360 / -1240 -180 / -180 Weight last 48 hrs Weight 56.812 kg Weight 56.812 kg Weight 52.617 kg Physical Exam Const: COMMON NORMALS: no acute distress, patient oriented x3 and alert GENERAL APPEARANCE: cooperative and comfortable ORIENTATION/CONSCIOUSNESS: Yes awake OTHER: -looks younger than stated age, very pleasant HENMT: COMMON NORMALS: normocephalic, atraumatic, hearing grossly normal bilaterally and moist oral mucous membranes HEAD & SCALP: normocephalic and atraumatic Eye: COMMON NORMALS: Equal, round and reactive pupils present, EOMs intact bilaterally and conjunctivae normal CONJUNCTIVA: Yes conjunctivae normal PUPIL: Yes Equal, round and reactive pupils present Neck/C-Spine: COMMON NORMALS: full ROM GENERAL: Yes normal visual inspection and Yes trachea midline Chest: CHEST: Yes Pacemaker present Resp: COMMON NORMALS: normal respiratory effort, No retractions, No use of accessory muscles and clear to auscultation bilaterally EFFORT & INSPECTION: Yes able to speak in complete sentences, Yes symmetric chest movement and No tachypneic AUSCULTATION: clear to auscultation bilaterally OTHER: -on RA Cardio: COMMON NORMALS: regular rate, regular rhythm, S1 normal heart sound present, S2 normal heart sound present and No murmurs present (Cardio) RATE: regular rate RHYTHM: regular rhythm HEART SOUNDS: S1 normal heart sound present and S2 normal heart sound present GI: COMMON NORMALS: Normal to inspection, nondistended, normoactive bowel sounds present, Soft to palpation and non-tender INSPECTION: Yes GI ostomy present PALPATION: Yes Soft to palpation Extremity: COMMON NORMALS: no clubbing, cyanosis or edema and no pedal edema NARRATIVE EXTREMITY EXAM: -RLE: clean dressing on lateral hip, no apparent hematoma Neuro: COMMON NORMALS: patient oriented x3, no focal motor deficits and no sensory deficits noted SENSORIUM/ORIENTATION: Yes alert Psych: COMMON NORMALS: mental status grossly normal, Normal thought process present, cooperative, normal affect and speech normal SPEECH: Yes normal speech THOUGHT PROCESS: Normal thought process present Skin: COMMON NORMALS: no rashes or lesions noted, no jaundice, no petechiae and no mottling GENERAL SKIN EXAM: no rashes or lesions noted Urinary Catheter Management^: Bagley: Cath Placed During This Visit: yes, but has since been removed by the nurse Reason for Continuing Indwelling Catheter: Decision to DC Catheter Urinary Catheter Date of Insertion: 09/29/20 Urinary Catheter Time of Insertion: 18:45 Date Urinary Catheter Removed: 10/02/20 Time Urinary Catheter Discontinued: 08:15 Data : 10/03/20 03:14 10/03/20 03:14 Micro: Microbiology 09/29/20 18:55 Urine Culture - Final Urine,Clean Catch Escherichia coli A&P Assessment and plan (1) Subcapital fracture of right hip: -secondary to fall at home, precipitated by dizzy spell -x-ray reported as probable subcapital fracture and possible inferior pubic ramus fracture -Bagley catheter discontinued this AM and has been able to void independently -Pain control as needed -Orthopedic consult by Dr. Ivy appreciated -POD # 2 s/p R bipolar hip arthroplasty; EBL-75 mL -Eliquis on hold, on full dose ASA for DVT ppx -continue to monitor vital signs; stable -PT/OT evaluations post-op Status: Acute Qualifiers: Encounter type: initial encounter Fracture type: closed Qualified Code(s): S72.011A - Unspecified intracapsular fracture of right femur, initial encounter for closed fracture (2) Hypertension: -continue to monitor vital signs; stable -continue oral antihypertensives Status: Chronic Qualifiers: Hypertension type: essential hypertension Qualified Code(s): I10 - Essential (primary) hypertension (3) Carotid stenosis: -carotid US (2017): < 50% stenosis bilaterally -on statin, ASA Status: Chronic Qualifiers: Laterality: bilateral Qualified Code(s): I65.23 - Occlusion and stenosis of bilateral carotid arteries (4) Hyperlipidemia: -continue statin Status: Chronic Qualifiers: Hyperlipidemia type: unspecified Qualified Code(s): E78.5 - Hyperlipidemia, unspecified (5) Atrial fibrillation: -telemetry monitoring -continue Sotalol -continue to hold Eliquis, now on full dose ASA Status: Chronic Qualifiers: Atrial fibrillation type: unspecified Qualified Code(s): I48.91 - Unspecified atrial fibrillation (6) Sick sinus syndrome: -sick sinus syndrome s/p pacemaker placement (09/2017). Interrogated by Dr. Falk in 05/2020, functioning appropriately. 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 Time Spent in Patient Care: 16 - 35 minutes (>than 50% of time spent in counselling and/or direct pt care on unit) . Coding Level of Care Code Acute [employer] Plant[employer] Equipment Operator for g Fwd Exam Comprehensive Diagnoses Subcapital fracture of right hip S72.011A Encounter type: initial encounter Fracture type: closed Hypertension I10 Hypertension type: essential hypertension Carotid stenosis I65.23 Laterality: bilateral Hyperlipidemia E78.5 Hyperlipidemia type: unspecified Atrial fibrillation I48.91 Atrial fibrillation type: unspecified Sick sinus syndrome I49.5 UTI (urinary tract infection) N30.00 Hematuria presence: without hematuria Urinary tract infection type: acute cystitis
[2020-10-03 11:11] VITALS: BP 102/56; PULSE 67; RESP 16; TEMP 36.4; O2SAT 96
--- NOTE | 2020-10-03 11:40 | PC.NURSE ---
Patient up with physical therapy ambulating with walker. Did not attempt to use stairs. Patient is requiring oxygen with ambulation and rest at least 1L nc or desats to the high 80's.
[2020-10-03 12:13] LABS: Blood Urea Nitrogen 35 mg/dL (8-23); Calcium 8.5 mg/dL (8.5-10.5); Carbon Dioxide 21 mmol/L (22-29); Chloride 106 mmol/L (98-107); Glucose 106 mg/dL (65-115); Osmolality Calculated 284 mOsm/kg (285-295); Sodium 133 mmol/L (136-145)
[2020-10-03 12:29] LABS: Anion Gap 10.9 (5-19); Potassium 4.9 mmol/L (3.5-5.1)
[2020-10-03 15:37] VITALS: BP 135/72; PULSE 59; RESP 15; TEMP 36.8; O2SAT 94
[2020-10-03 20:00] VITALS: BP 109/54; PULSE 59; RESP 17; TEMP 37; O2SAT 94
[2020-10-03] MEDS: atorvastatin 40 mg Tablet 20 MG PO (20:44)
[2020-10-04] VITALS (7 sets, daily range): BP systolic 103–145; BP diastolic 53–78; PULSE 60–66; RESP 16–18; TEMP 36.5–37.1; O2SAT 93–96; BMI 20.6
[2020-10-04] MEDS: acetaminophen 500 mg Tablet 1000 MG PO ×2 (02:36→11:38)
[2020-10-04 07:13] LABS: Basophils # 0.1 10^3/uL (0.0-0.1); Basophils % 0.7 %; Eosinophils # 0.5 10^3/uL (0.0-0.8); Eosinophils % 4.9 %; Hematocrit 27.3 % (37.0-47.0); Hemoglobin 8.4 g/dL (11.5-15.3); Lymphocytes # 1.5 10^3/uL (0.8-4.8); Lymphocytes % 15.7 %; Mean Corpuscular HGB Conc 30.8 g/dL (30.0-36.0); Mean Corpuscular Hemoglobin 27.6 pg (28.0-34.0); Mean Corpuscular Volume 89.8 fL (81-99); Mean Platelet Volume 10.5 fL (7.4-10.4); Monocytes % 10.3 %; Neutrophils # 6.43 10^3/uL (1.8-7.7); Neutrophils % 67.8 %; Nucleated Red Blood Cells % 0 %; Platelet Count 202 10^3/cmm (130-400); Red Blood Count 3.04 10^6/uL (4.1-5.3); Red Cell Distribution Width 14.3 % (12.1-15.1); White Blood Count 9.5 10^3/uL (4.0-10.0)
[2020-10-04] MEDS: cefUROXime 250 mg Tablet PO ×2 (09:18→17:01)
[2020-10-04] MEDS: calcium carbonate 500 mg Chew Tablet 1000 MG PO ×2 (09:18→17:01)
[2020-10-04] MEDS: sotalol 80 mg Tablet PO ×2 (09:18→17:01)
[2020-10-04] MEDS: lisinopril 20 mg Tablet PO ×2 (09:19→17:01)
[2020-10-04] MEDS: CELEcoxib 200 mg Capsule PO (09:19)
[2020-10-04] MEDS: multivitamin therapeutic Tablet 1 TAB PO (09:19)
[2020-10-04] MEDS: sennosides-docusate Tablet 2 TAB PO ×2 (09:19→17:00)
[2020-10-04] MEDS: pantoprazole DR 40 mg Tablet PO (09:19)
[2020-10-04] MEDS: aspirin 325 mg EC Tablet PO (09:19)
[2020-10-04] MEDS: omega-3 fatty acids 1,000 mg Capsule 1000 MG PO ×2 (09:20→17:01)
[2020-10-04] MEDS: amlodipine 5 mg Tablet 2.5 MG PO (09:20)
[2020-10-04] MEDS: cholecalciferol (vitamin D3) 1,000 unit Tablet 1000 UNIT PO (09:20)
[2020-10-04] MEDS: iron polysaccharide complex 150 mg Capsule PO ×2 (09:25→17:01)
[2020-10-04] MEDS: mupirocin oint 22 gm 1 APPLIC NASAL ×2 (09:28→17:02)
[2020-10-04] MEDS: chlorhexidine gluconate 0.12% Btl 473 mL 30 ML MUCOUS MEM ×2 (09:28→17:01)
--- NOTE | 2020-10-04 11:19 | PM.DCS ---
Discharge Providers Date of Admission: 09/29/20 16:57 Date of Discharge: October 04, 2020 Attending Provider at Admission: Luiza Cabello MD Attending Provider at Discharge: Ady Tee MD Primary Care Provider: BARBARA Nolen Diagnoses at Discharge Discharge Diagnosis (1) Subcapital fracture of right hip: Status: Chronic Qualifiers: Encounter type: initial encounter Fracture type: closed Qualified Code(s): S72.011A - Unspecified intracapsular fracture of right femur, initial encounter for closed fracture (2) Hypertension: Status: Chronic Qualifiers: Hypertension type: essential hypertension Qualified Code(s): I10 - Essential (primary) hypertension (3) Carotid stenosis: Status: Chronic Qualifiers: Laterality: bilateral Qualified Code(s): I65.23 - Occlusion and stenosis of bilateral carotid arteries (4) Hyperlipidemia: Status: Chronic Qualifiers: Hyperlipidemia type: unspecified Qualified Code(s): E78.5 - Hyperlipidemia, unspecified (5) Atrial fibrillation: Status: Chronic Qualifiers: Atrial fibrillation type: unspecified Qualified Code(s): I48.91 - Unspecified atrial fibrillation (6) Sick sinus syndrome: Status: Chronic (7) UTI (urinary tract infection): Status: Resolved Qualifiers: Hematuria presence: without hematuria Urinary tract infection type: acute cystitis Qualified Code(s): N30.00 - Acute cystitis without hematuria Reason for Visit Reason for Visit: fall/right hip pain Hospital Course Hospital Course 85 year old female with PMHx sick sinus syndrome status post pacemaker placement , CAD status post CABG was admitted after having a fall at home .On the day of admision She reports waking up and feeling like her usual self but around 10 AM felt lightheaded and suddenly found herself on the floor. She denied loss of consciousness or head trauma but was unable to get up on her own. She somehow managed to crawl leaning on her left side until she could reach her phone then called her sister who then called for an ambulance. Prior to this patient states that she was in her usual state of health, was ambulating independently, denies prior falls. She lives alone and is quite independent. She is not oxygen dependent at baseline, denies any recent changes to her medications and reports compliance with them. She was admitted and managed for Subcapital fracture of right hip s/p R bipolar hip arthroplasty. She also had UTI during this admission for which she was ceftriaxone as well as cefuroxime and is being discharged on levofloxacin 500 mg oral daily for 3 days. At the time of discharge patient is in stable condition. She is being discharged to home. Physical Exam Const: COMMON NORMALS: patient oriented x3 HENMT: COMMON NORMALS: normocephalic, atraumatic, hearing grossly normal bilaterally and external ears normal HEAD & SCALP: normocephalic and atraumatic EXTERNAL EAR: Yes external ears normal Eye: COMMON NORMALS: no scleral icterus GENERAL EYE: appearance normal, both eyes and all related structures Chest: COMMONS NORMALS: normal inspection of the chest and normal palpation of entire chest wall CHEST: Yes Symmetrical chest wall rise Resp: COMMON NORMALS: normal respiratory effort, No retractions, No use of accessory muscles and clear to auscultation bilaterally EFFORT & INSPECTION: Yes symmetric chest movement AUSCULTATION: clear to auscultation bilaterally Cardio: COMMON NORMALS: regular rate, regular rhythm, S1 normal heart sound present, S2 normal heart sound present, No gallops present (Cardio), No murmurs present (Cardio), No rub (Cardio) and Peripheral pulses 2+ throughout RATE: regular rate RHYTHM: regular rhythm HEART SOUNDS: S1 normal heart sound present and S2 normal heart sound present PERIPHERAL PULSES: Peripheral pulses 2+ throughout GI: COMMON NORMALS: Normal to inspection, nondistended, normoactive bowel sounds present, Soft to palpation, non-tender, No hepatosplenomegaly present and no masses AUSCULTATION: Yes normoactive bowel sounds PALPATION: Yes Soft to palpation and Yes No hepatosplenomegaly present RECTAL EXAM: deferred Extremity: COMMON NORMALS: no clubbing, cyanosis or edema and no pedal edema OTHER: RLE: clean dressing on lateral hip, no apparent hematoma Neuro: COMMON NORMALS: patient oriented x3 Urinary Catheter Management^: Bagley: Cath Placed During This Visit: yes, but has since been removed by the nurse Reason for Continuing Indwelling Catheter: Decision to DC Catheter Urinary Catheter Date of Insertion: 09/29/20 Urinary Catheter Time of Insertion: 18:45 Date Urinary Catheter Removed: 10/02/20 Time Urinary Catheter Discontinued: 08:15 Discharge Data Data Completed and Pending: Completed Studies During Hospitalization Category Date Time Status XR chest 1V helen ble [id number] Urgent Exams 09/29/20 16:50 Completed XR hip RT 2-3V wo /w pel* [id number] Stat Exams 09/29/20 15:55 Completed XR pelvis 1-2V* 7 2170 Routine Exams 10/01/20 15:24 Completed Pending at discharge Category Date Time Status Blood Culture Sta t Lab 09/30/20 07:31 Results Labs from last 24 hours 10/04/20 10/03/20 02:41 03:14 WBC 9.5 RBC 3.04 L Hgb 8.4 L Hct 27.3 L MCV 89.8 MCH 27.6 L MCHC 30.8 RDW 14.3 Plt Count 202 MPV 10.5 H Neut % (Auto) 67.8 Lymph % (Auto) 15.7 [place] % (Auto) 10.3 Eos % (Auto) 4.9 Baso % (Auto) 0.7 Neut # (Auto) 6.43 Lymph # (Auto) 1.5 [place] # (Auto) 1.0 H Eos # (Auto) 0.5 Baso # (Auto) 0.1 Nucleated RBC % (a uto) 0 Nucleated RBCs # 0.0 Sodium 133 L Potassium 4.9 Chloride 106 Carbon Dioxide 21 L Anion Gap 10.9 BUN 35 H Creatinine 0.9 GFR Calculation Not Reportable Glucose 106 Calculated Osmolal ity 284 L Calcium 8.5 Vitals: Last Vital Signs Temp 98.8 F 10/04/20 07:14 Pulse 60 10/04/20 07:14 Resp 16 10/04/20 07:14 BP 113/58 10/04/20 07:14 Pulse Ox 95 10/04/20 07:14 Discharge Plan Discharge Patient Disposition: Home Health Service Condition: Stable Prescriptions: New levofloxacin 500 mg tablet 500 mg PO DAILY 3 Days RF: 0 Continued omega-3 fatty acids [Fish Oil Concentrate] 1,000 mg capsule 1,000 mg PO BID RF: 0 pantoprazole 40 mg tablet,delayed release (DR/EC) 40 mg PO DAILY RF: 0 aspirin [Adult Low Dose Aspirin] 81 mg tablet,delayed release (DR/EC) 81 mg PO DAILY RF: 0 sotalol 80 mg tablet 80 mg PO BID RF: 0 simvastatin 40 mg tablet 40 mg PO BEDTIME RF: 0 amlodipine 2.5 mg tablet 2.5 mg PO DAILY 90 Days Qty: 90 RF: 3 Eliquis 2.5 mg tablet 2.5 mg PO BID 90 Days Qty: 180 RF: 3 lisinopril 20 mg tablet 20 mg PO BID 90 Days Qty: 180 RF: 3 Multiple Vitamins Tablet 1 tab PO DAILY RF: 0 Discharge Orders: Discharge Order (Routine); Ordered 10/03/20 Ordered By: Arleth Ivy Other Ambulatory Orders: DME: Walker (Order) Location: None Selected Ordered By: Luiza Cabello Referrals: [facility] [Outside] [facility] ([facility]) [Outside] Arleth Ivy MD [Physician] - 2 weeks (Please call [facility] Ortho and schedule a [address] Ivy. [phone]) Discharge Diet: Advance as tolerated and Usual diet Discharge Activity: As per PT/OT instructions Patient Instructions: Urinary Tract Infection in Women (DC), Minimally Invasive Total Hip Replacement (DC) Activity Restrictions/Additional Instructions: Posterior hip precautions as instructed. Cover wound as needed. You may change the dressing as needed as well. Discharge Attestations Time Spent in Discharge Care*: greater than 30 min Specific Discharge Activities: educating patient, educating and/or supporting family/caregiver, discussing with pcp/other providers, discussing with assistant case manager/social workers/dc planners and documenting/other paperwork Status at Discharge: Cognitive status at discharge: cognitively intact, Behavioral status at discharge: cooperative, Functional status at discharge: other assisted ambulation Overall status at discharge: patient is back to baseline Quality Metrics Clinical Quality Measures During this hospital stay, did patient experience: None Coding Level of Care Code Acute Ribbon Cleaner for [facility] Fwd Exam Comprehensive Diagnoses Subcapital fracture of right hip S72.011A Encounter type: initial encounter Fracture type: closed Hypertension I10 Hypertension type: essential hypertension Carotid stenosis I65.23 Laterality: bilateral Hyperlipidemia E78.5 Hyperlipidemia type: unspecified Atrial fibrillation I48.91 Atrial fibrillation type: unspecified Sick sinus syndrome I49.5 UTI (urinary tract infection) N30.00 Hematuria presence: without hematuria Urinary tract infection type: acute cystitis
--- NOTE | 2020-10-04 11:38 | DCPLANNER ---
Pg 2 of IM updated and reviewed with pt. No questions, copy provided.
--- NOTE | 2020-10-04 17:29 | PC.NURSE ---
patient and family given discharge instructions and verbalized understanding of instructions. patient's IV discontinued and covered with 2x2. dressing changed on patient's right hip. patient taken to private vehicle via wheelchair. patient sent home with paper script for abdirahman.
--- NOTE | 2020-10-04 17:32 | PM.PN ---
Subjective Subjective: Interval history: Patient is doing well, and she is ready for discharge to home with home health. Medications: Reviewed: Yes Medication Review Details: Active Medications Generic Name Dose Route Start Last Admin Trade Name Mary PRN Reason Stop Dose Admin Acetaminophen 650 mg 09/29/20 19:46 Tylenol PO Q6H PRN Mild/Mod Pain Or Temp >/= 101 Acetaminophen 1,000 mg 10/02/20 19:00 10/03/20 02:39 Tylenol PO 1,000 mg Q8H JAILYN Administration Amlodipine Besylat e 2.5 mg 09/30/20 09:00 10/03/20 08:49 Norvasc PO 2.5 mg DAILY JAILYN Administration Aspirin 325 mg 10/02/20 09:00 10/03/20 08:48 Aspirin Ec PO 325 mg DAILY JAILYN Administration Atorvastatin Calci um 20 mg 09/29/20 21:00 10/02/20 20:51 Lipitor PO 20 mg BEDTIME JAILYN Administration Calcium Carbonate 1,000 mg 10/01/20 18:00 10/03/20 08:48 Tums PO 1,000 mg BID JAILYN Administration Cefuroxime Axetil 250 mg 10/02/20 18:00 10/03/20 08:49 Ceftin PO 250 mg BID JAILYN Administration Protocol Celecoxib 200 mg 10/02/20 09:00 10/03/20 08:48 Celebrex PO 200 mg DAILY JAILYN Administration Chlorhexidine Gluc ana 30 ml 10/01/20 17:00 10/03/20 08:52 Perigard MUCOUS MEM 30 ml QID JAILYN Administration Lisinopril 20 mg 09/30/20 09:00 10/03/20 08:48 Prinivil PO 20 mg BID JAILYN Administration Morphine Sulfate 2 mg 09/29/20 19:46 Morphine IVP Q4H PRN SEVERE PAIN Multivitamins Ther apeutic 1 tab 09/30/20 09:00 10/03/20 08:48 Multivitamin Tab PO 1 tab DAILY JAILYN Administration Multivitamins Ther apeutic 1 tab 10/02/20 09:00 10/03/20 08:52 Multivitamin Tab PO Not Given DAILY [facility] Mupirocin 1 applic 10/01/20 18:00 10/03/20 08:53 Bactroban NASAL 10/06/20 17:59 1 applic BID [facility] Administration Naloxone HCl 0.1 mg 10/01/20 15:51 Narcan IVP Q2M PRN Respiratory rate less than 8. Iyorn-[id number] Ethyl Esters 1,000 mg 09/30/20 09:00 10/03/20 08:48 [place]-3 Fatty Ac ids PO 1,000 mg BID JAILYN Administration Ondansetron HCl 4 mg 09/29/20 19:46 Zofran IVP Q6H PRN vomiting, or N/V if npo Ondansetron HCl 4 mg 10/01/20 15:51 Zofran IVP Q6H PRN NAUSEA AND VOMITI NG Oxycodone HCl 5 mg 10/01/20 15:51 Oxycodone Ir PO Q4H PRN MODERATE PAIN Pantoprazole Sodiu m 40 mg 09/30/20 09:00 10/03/20 08:48 Protonix PO 40 mg DAILY JAILYN Administration Polyethylene Glyco l 17 gm 09/30/20 09:00 10/03/20 08:53 Miralax PO Not Given DAILY JAILYN Polysaccharide Iro n Complex 150 mg 10/01/20 18:00 10/03/20 08:53 Ferrex PO Not Given BIDWM JAILYN Senna/Docusate Sod ium 2 tab 10/01/20 18:00 10/03/20 08:48 Senna-S PO 2 tab BID JAILYN Administration Sotalol HCl 80 mg 09/30/20 09:00 10/03/20 08:49 Betapace PO 80 mg BID JAILYN Administration Tramadol HCl 50 mg 10/01/20 15:51 Ultram PO Q4H PRN MILD TO MODERATE PAIN Vitamin D 1,000 unit 10/02/20 09:00 10/03/20 08:49 Vitamin D3 PO 1,000 unit DAILY JAILYN Administration No Known Allergies Allergy (Verified 09/29/20 16:23) Vitals/I&O/Wt Last Vital Signs Temp 98.0 F 10/04/20 17:31 Pulse 62 10/04/20 17:31 Resp 18 10/04/20 17:31 BP 119/66 10/04/20 17:31 Pulse Ox 94 10/04/20 17:31 10/04/20 10/04/20 10/04/20 06:59 14:59 22:59 Intake Total 960 / 960 Output Total 350 / 1400 Balance -350 / -580 960 / 960 Weight last 48 hrs Weight 116 lb 6 oz Weight 125 lb 4 oz Weight 125 lb 4 oz Physical Exam Const: COMMON NORMALS: no acute distress, average body habitus, patient oriented x3 and alert GENERAL APPEARANCE: cooperative and comfortable ORIENTATION/CONSCIOUSNESS: Yes awake HENMT: COMMON NORMALS: normocephalic and atraumatic HEAD & SCALP: normocephalic and atraumatic Eye: GENERAL EYE: appearance normal, both eyes and all related structures Chest: COMMONS NORMALS: normal inspection of the chest Resp: COMMON NORMALS: normal respiratory effort EFFORT & INSPECTION: Yes able to speak in complete sentences and Yes symmetric chest movement Extremity: GENERAL: Yes normal exam except as noted RIGHT LOWER EXTREMITY: Yes hip joint Right hip: Yes inspection (No ecchymosis or erythema. Dressing is removed, wound is benign.), Yes palpation (Nontender to palpation), Yes ROM (Not evaluated) and Yes neurovascular exam (Intact) Neuro: COMMON NORMALS: patient oriented x3 SENSORIUM/ORIENTATION: Yes alert Psych: COMMON NORMALS: mental status grossly normal APPEARANCE: Yes grossly normal ATTITUDE: Yes calm and Yes engaged ATTENTION/CONCENTRATION: Yes attention grossly intact Skin: COMMON NORMALS: no rashes or lesions noted GENERAL SKIN EXAM: no rashes or lesions noted Urinary Catheter Management^: [place]: Cath Placed During This Visit: yes, but has since been removed by the nurse Reason for Continuing Indwelling Catheter: Decision to DC Catheter Urinary Catheter Date of Insertion: 09/29/20 Urinary Catheter Time of Insertion: 18:45 Date Urinary Catheter Removed: 10/02/20 Time Urinary Catheter Discontinued: 08:15 Data : 10/04/20 02:41 10/03/20 03:14 A&P Assessment and plan (1) Subcapital fracture of right hip: Patient is seen today following right bipolar hip arthroplasty which was well-tolerated. She has been up with physical therapy and tolerated this well. They have instructed her in posterior hip precautions. She will have to follow these when she is home. I feel she would likely benefit from home health, and she is in agreement. Discharge is planned. Timing will be determined by the hospitalist team. Status: Chronic Qualifiers: Encounter type: initial encounter Fracture type: closed Qualified Code(s): S72.011A - Unspecified intracapsular fracture of right femur, initial encounter for closed fracture (2) History of right hip hemiarthroplasty: Status: Acute Attestations Medical Necessity Statement*: Patient is awaiting discharge to home with home health. She is comfortable with this plan. Coding Level of Care Code Acute Director Visual for Vicki Gonzalez Diagnoses Subcapital fracture of right hip S72.011A Encounter type: initial encounter Fracture type: closed History of right hip hemiarthroplasty Z96.641
== END 2020-10-04 17:33 | disposition home health service (06) | DRG 522 ==
LOC: ER 16:01 → MEDSURG 17:59
PROVIDERS: Emergency Medicine; Nurse Practitioner Family; Specialist; Admitting Provider Family Medicine; PCP Registered Nurse; Visit Provider Internal Medicine
PROC: 0SR90JA Replacement of Right Hip Joint with Synthetic Substitute, Uncemented, Open Approach (ICD-10-PCS; CPT 27125; principal; 2020-10-01 12:30)
DX: S72.011A Unspecified intracapsular fracture of right femur, initial encounter for closed fracture (principal); N30.00 Acute cystitis without hematuria; I10 Essential (primary) hypertension; E78.5 Hyperlipidemia, unspecified; I48.91 Unspecified atrial fibrillation; I65.23 Occlusion and stenosis of bilateral carotid arteries; I49.5 Sick sinus syndrome; Z66 Do not resuscitate; Z95.0 Presence of cardiac pacemaker; I25.10 Atherosclerotic heart disease of native coronary artery without angina pectoris; Z95.1 Presence of aortocoronary bypass graft; W19.XXXA Unspecified fall, initial encounter; Y93.89 Activity, other specified; Y92.009 Unspecified place in unspecified non-institutional (private) residence as the place of occurrence of the external cause; Z79.82 Long term (current) use of aspirin; Z79.01 Long term (current) use of anticoagulants; Z93.3 Colostomy status; Z85.038 Personal history of other malignant neoplasm of large intestine
CPT/HCPCS: 12345; 36415; 71045; 72170; 73502; 80048; 80053; 81001; 85025; 85610; 87040; 87077; 87086; 87186; 87635; 93005; 97110; 97116; 97161; 97165; 97530; 97535; 99283; C1776; J0131; J0690; J0696; J2270; J2370; J2405; J2704; J2710; J3010; J3370; J3490; J7030; J7040; J7799

== ENCOUNTER 2020-10-08 13:10 | Inpatient (IN) | payer MEDICARE, OTHER, SELFPAY ==
[2020-10-08] VITALS (15 sets, daily range): BP systolic 90–129; BP diastolic 43–71; PULSE 70–79; RESP 15–24; TEMP 36.6–36.8; O2SAT 95–97; BMI 20.3
--- NOTE | 2020-10-08 13:44 | ECG_ITS ---
[facility] Test Date: 2020-10-08 Pat Name: Holley Haque Department: Room: Gender: Female Special Education Teacher: : 1935 Requested By: Jami Ford Order Number: [id number] Camilo MD: Sherman Callahan M.D. Measurements Intervals [employer] Rate: 66 P: 58 IA: 117 QRS: -6 QRSD: 70 T: 29 QT: 395 QTc: 414 Interpretive Statements SINUS RHYTHM WITH SINUS ARRHYTHMIA WITH SHORT IA INTERVAL LOW QRS VOLTAGE IN PRECORDIAL LEADS [QRS DEFLECTION < 1.0 mV IN CHEST LEADS] POSSIBLE ANTERIOR MYOCARDIAL INFARCTION [30 ms Q WAVE IN V3/V4, OR R < 0.2 mV IN V4], OF INDETERMINATE AGE Compared to ECG 09/29/2020 17:24:12 Short IA interval now present Myocardial infarct finding now present T-wave abnormality no longer present Possible ischemia no longer present Electronically Signed On 10-08-2020 19:48:52 CASTING MACHINE OPERATOR by Sherman Callahan M.D. [email or web address]
--- NOTE | 2020-10-08 13:44 | XRR_ITS ---
PROCEDURE INFORMATION: Exam: XR Right Hip with Pelvis when Performed Exam date and time: 10/08/2020 1:54 PM Age: 85 years old Clinical indication: Right hip; Prior surgery; Surgery date: 3-7 days post-operative; Surgery type: RT hip. Heart; Patient HX: RT hip pain; Additional info: Fall TECHNIQUE: Imaging protocol: XR Right hip with pelvis when performed. Views: 1 view. COMPARISON: CR XR pelvis 1-2V* [id number] 10/01/2020 3:16 PM FINDINGS: Tubes, catheters and devices: Numerous pelvic surgical clips. Bones/joints: Right total hip prosthesis in good position without evidence for loosening or dislocation.No visible acute osseous abnormality, fracture, subluxation, or dislocation. No radiographically visible joint effusion. Soft tissues: Unremarkable. XR/XR hip RT 2-3V wo/w pel* [id number] IMPRESSION: Nonacute.
[2020-10-08 16:26] LABS: Basophils # 0.1 10^3/uL (0.0-0.1); Basophils % 0.4 %; Eosinophils # 0.1 10^3/uL (0.0-0.8); Eosinophils % 0.4 %; Hematocrit 22.1 % (37.0-47.0); Lymphocytes # 1.3 10^3/uL (0.8-4.8); Lymphocytes % 9.6 %; Mean Corpuscular HGB Conc 29.4 g/dL (30.0-36.0); Mean Corpuscular Hemoglobin 26.9 pg (28.0-34.0); Mean Corpuscular Volume 91.3 fL (81-99); Mean Platelet Volume 9.1 fL (7.4-10.4); Monocytes # 1.1 10^3/uL (0.2-0.9); Monocytes % 8.3 %; Neutrophils # 10.65 10^3/uL (1.8-7.7); Neutrophils % 79.2 %; Nucleated Red Blood Cells % 0.2 %; Platelet Count 313 10^3/cmm (130-400); Red Blood Count 2.42 10^6/uL (4.1-5.3); Red Cell Distribution Width 15.2 % (12.1-15.1); White Blood Count 13.5 10^3/uL (4.0-10.0)
[2020-10-08 16:39] LABS: Hemoglobin 6.5 g/dL (11.5-15.3)
--- NOTE | 2020-10-08 16:52 | ED_ITS ---
HPI - Extremity Problem General: Chief complaint: Extremity Injury, Lower Stated complaint: WEAKNESS, FALL AFTER HIP REPLACEMENT Time Seen by Provider: 10/08/20 16:46 History of Present Illness: HPI Narrative: 85-year-old female presents to the emergency room after fall at home around 2 or 3:00 she recently had hip replacement and she is concerned that she may have hurt that hip. She had some generalized weakness and dizziness before the fall. She denies striking her head she did not lose consciousness. She has some internal rotation was not previously there. Patient complaining of generalized weakness that was present prior to the fall and persists now. She denies any chest pain or shortness of breath MD Complaint: extremity pain Onset (ago): hour(s) Pain Consistency: constant Location: right Quality: aching Radiation: distal Relieving factors: immobilization and medication Exacerbating factors: range of motion, weight bearing and palpation Associated symptoms: Reports arthralgias; Deny chest pain, fever(s), myalgias, rash or short of breath Review of Systems Const: Denies: fever(s) ENMT: Denies: throat pain, ear or mastoid pain, nasal discharge or nasal congestion Card: Denies: chest pain Resp: Denies: dyspnea, productive cough or non-productive cough GI: Denies: abdominal pain, nausea, vomiting, hematemesis, coffee ground emesis, diarrhea, constipation, bloating, hematochezia or melena : Denies: flank pain, difficulty voiding, dysuria, urinary frequency or urinary urgency Skin/Breast: Denies: rash PFSH ED PFSH: Medical History Anticoagulation adequate with anticoagulant therapy Eliquis Atrial fibrillation Carotid stenosis Hyperlipidemia Hypertension Sick sinus syndrome Subcapital fracture of right hip UTI (urinary tract infection) Surgical History 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 Pacemaker Status post aorto-coronary artery bypass graft -in 2002 Family History Grandmother CAD (coronary artery disease) Family/Other CAD (coronary artery disease) Denies family history of Diabetes Clotting disorder Dementia Hyperlipidemia Psychiatric illness Chronic kidney disease (CKD) Suicide Anesthesia complication Bleeding disorder Family history of premature coronary artery disease Lung disease Cancer Hypertension Stroke Social History Smoking and tobacco status: never smoked Alcohol intake: never Lives independently: Yes Current occupational status: retired Physical Exam Const: COMMON NORMALS: no acute distress GENERAL APPEARANCE: cooperative HENMT: COMMON NORMALS: normocephalic, atraumatic and hearing grossly normal bilaterally HEAD & SCALP: normocephalic and atraumatic Eye: COMMON NORMALS: Equal, round and reactive pupils present, EOMs intact bilaterally, conjunctivae normal and no scleral icterus CONJUNCTIVA: Yes conjunctivae normal PUPIL: Yes Equal, round and reactive pupils present Neck/C-Spine: COMMON NORMALS: full ROM, no lymphadenopathy, supple and no JVD Lymph: LYMPHATIC: no lymphadenopathy noted and no lymphedema noted Resp: COMMON NORMALS: normal respiratory effort, No retractions, No use of accessory muscles and clear to auscultation bilaterally AUSCULTATION: clear to auscultation bilaterally Cardio: COMMON NORMALS: no JVD, regular rate, regular rhythm and No murmurs present (Cardio) RATE: regular rate RHYTHM: regular rhythm GI: COMMON NORMALS: Soft to palpation and No hepatosplenomegaly present AUSCULTATION: Yes normoactive bowel sounds PALPATION: Yes Soft to palpation, No Tenderness to palpation present (GI), No Guarding due to palpation present (GI) and Yes No hepatosplenomegaly present Extremity: COMMON NORMALS: normal to inspection, capillary refill normal, no clubbing, cyanosis or edema, no calf tenderness and no pedal edema Skin: COMMON NORMALS: no rashes or lesions noted GENERAL SKIN EXAM: no rashes or lesions noted Course Vital Signs: Vital signs: Vital Signs Temperature 97.9 F 10/11/20 17:57 Pulse Rate 97 10/11/20 17:57 Respiratory Rate 18 10/11/20 17:57 Blood Pressure 152/82 10/11/20 17:57 Pulse Oximetry 98 10/11/20 17:57 MDM - Extremity (Nontraumatic) MDM Narrative: Medical decision making narrative: Viewed findings with the family as well as the hospitalist will admit for transfusion and reevaluation. Initial images of her hip do not show any acute fracture Lab Data: Labs: Lab Results 10/08/20 10/08/20 10/08/20 Range/Units 16:10 16:10 16:10 WBC 13.5 H (4.0-10.0) 10^3/ uL RBC 2.42 L (4.1-5.3) 10^6/u L Hgb 6.5 L* (11.5-15.3) g/dL Hct 22.1 L (37.0-47.0) % MCV 91.3 (81-99) fL MCH 26.9 L (28.0-34.0) pg MCHC 29.4 L (30.0-36.0) g/dL RDW 15.2 H (12.1-15.1) % Plt Count 313 (130-400) 10^3/c mm MPV 9.1 (7.4-10.4) fL Neut % (Auto) 79.2 % Lymph % (Auto) 9.6 % [place] % (Auto) 8.3 % Eos % (Auto) 0.4 % Baso % (Auto) 0.4 % Neut # (Auto) 10.65 H (1.8-7.7) 10^3/u L Lymph # (Auto) 1.3 (0.8-4.8) 10^3/u L [place] # (Auto) 1.1 H (0.2-0.9) 10^3/u L Eos # (Auto) 0.1 (0.0-0.8) 10^3/u L Baso # (Auto) 0.1 (0.0-0.1) 10^3/u L Nucleated RBC % (a uto) 0.2 % Nucleated RBCs # 0.0 /100WBC Sodium 136 (136-145) mmol/L Potassium 4.7 (3.5-5.1) mmol/L Chloride 104 (98-107) mmol/L Carbon Dioxide 24 (22-29) mmol/L Anion Gap 12.7 (5-19) BUN 27 H (8-23) mg/dL Creatinine 0.9 (0.5-0.9) mg/dL GFR Calculation Not Reportable Glucose 147 H (65-115) mg/dL Calculated Osmolal ity 290 (285-295) mOsm/k g Calcium 8.6 (8.5-10.5) mg/dL Total Bilirubin 0.5 (0.15-1.2) mg/dL AST 19 (0-32) U/L ALT 18 (0-33) U/L Alkaline Phosphata se 56 (35-105) IU/L Creatine Kinase 82 (26-192) U/L Total Protein 5.0 L (6.6-8.7) g/dL Albumin 3.1 L (3.5-5.2) g/dL Globulin 1.9 (1.3-4.6) g/dL Blood Type Rho(D) Type Antibody Screen Crossmatch 10/08/20 Range/Units 16:45 WBC (4.0-10.0) 10^3/ uL RBC (4.1-5.3) 10^6/u L Hgb (11.5-15.3) g/dL Hct (37.0-47.0) % MCV (81-99) fL MCH (28.0-34.0) pg MCHC (30.0-36.0) g/dL RDW (12.1-15.1) % Plt Count (130-400) 10^3/c mm MPV (7.4-10.4) fL Neut % (Auto) % Lymph % (Auto) % [place] % (Auto) % Eos % (Auto) % Baso % (Auto) % Neut # (Auto) (1.8-7.7) 10^3/u L Lymph # (Auto) (0.8-4.8) 10^3/u L [place] # (Auto) (0.2-0.9) 10^3/u L Eos # (Auto) (0.0-0.8) 10^3/u L Baso # (Auto) (0.0-0.1) 10^3/u L Nucleated RBC % (a uto) % Nucleated RBCs # /100WBC Sodium (136-145) mmol/L Potassium (3.5-5.1) mmol/L Chloride (98-107) mmol/L Carbon Dioxide (22-29) mmol/L Anion Gap (5-19) BUN (8-23) mg/dL Creatinine (0.5-0.9) mg/dL GFR Calculation Glucose (65-115) mg/dL Calculated Osmolal ity (285-295) mOsm/k g Calcium (8.5-10.5) mg/dL Total Bilirubin (0.15-1.2) mg/dL AST (0-32) U/L ALT (0-33) U/L Alkaline Phosphata se (35-105) IU/L Creatine Kinase (26-192) U/L Total Protein (6.6-8.7) g/dL Albumin (3.5-5.2) g/dL Globulin (1.3-4.6) g/dL Blood Type A Positive Rho(D) Type Positive Antibody Screen Negative Crossmatch See Detail Discharge Plan Discharge Patient Disposition: Admitted As Inpatient Admit Provider: Luiza Cabello Clinical Impression: Pacemaker, Status post aorto-coronary artery bypass graft, Anticoagulation adequate with anticoagulant therapy, Anemia Condition: Stable Coding Level of Care Code ED Open Pit Quarry Supervisor for Vicki Gonzalez
[2020-10-08 17:09] LABS: Alanine Aminotransferase 18 U/L (0-33); Albumin Level 3.1 g/dL (3.5-5.2); Alkaline Phosphatase 56 IU/L (35-105); Aspartate Amino Transferase 19 U/L (0-32); Chloride 104 mmol/L (98-107); Glucose 147 mg/dL (65-115); Potassium 4.7 mmol/L (3.5-5.1); Sodium 136 mmol/L (136-145)
[2020-10-08 17:40] LABS: Anion Gap 12.7 (5-19); Blood Urea Nitrogen 27 mg/dL (8-23); Calcium 8.6 mg/dL (8.5-10.5); Carbon Dioxide 24 mmol/L (22-29); Globulin 1.9 g/dL (1.3-4.6); Osmolality Calculated 290 mOsm/kg (285-295); Total Bilirubin 0.5 mg/dL (0.15-1.2)
[2020-10-08 17:52] LABS: Creatine Phosphokinase 82 U/L (26-192)
--- NOTE | 2020-10-08 18:43 | P.HP_ITS ---
Providers/Chief Complaint Admitting Physician: Luiza Cabello MD Primary Care Provider: BARBARA Nolen Chief Complaint: WEAKNESS, FALL AFTER HIP REPLACEMENT History of Present Illness Holley Haque is a 85 year old female with PMHx noted below presents accompanied by her daughter following a syncopal episode at home earlier today while she was ambulating with her walker. Patient is known to me from recent admission during which time she had right bipolar hip arthroplasty secondary to a subcapital hip fracture which she had sustained following a mechanical fall. She did well post-op and was discharged home with home health and seemed to have been doing well initially. Earlier today she had a bout of dizziness, was unable to catch herself on her walker and ended up falling landing on her right side. She denies loss of consciousness or head trauma but did have difficulty trying to get up on her own. She called her daughter and grandson who were able to get her in the car and transported to the hospital. They were quite concerned particularly she appeared quite pale on their arrival. Patient endorses that she has noticed some black tarry output from her colostomy intermittently. She has been on anticoagulation with Eliquis which she takes secondary to a history of chronic atrial fibrillation. She had been discharged on this and baby aspirin which would serve as appropriate DVT prophylaxis as well. She reports compliance with her medication regimen and they have been no changes since she was discharged. She was also treated for UTI with a short course of Levaquin which she just completed. Urinalysis today is pending. Work-up so far indicates leukocytosis with a white count of 13.5, hemoglobin of 6.5, normal platelet count, normal electrolytes, BUN of 27, creatinine of 0.9, blood glucose of 147. Due to having fallen she had an x-ray done which shows right prosthesis in good position with no apparent dislocation or displacement. She has been typed and screened and is currently pending initiation of PRBCs. Vital signs are currently stable and she is resting comfortably on the stretcher though she does appear pale compared to her normal complexion. She is agreeable to transfusion of blood products. Daughter is at bedside and is updated accordingly. She had been tested during her last admission for COVID-19 and found to be negative. She denies any chest pain, shortness of breath, cough, contact with any known COVID-19 positive individuals. She will need continued monitoring of hemodynamic status, transfusion of blood products hence need for admission. Review of Systems Const: Reports: fatigue; Denies: fever(s) or chills Eyes: Denies: change in vision ENMT: Denies: odynophagia Card: Reports: lightheadedness; Denies: chest pain or swelling of feet/ankles Resp: Denies: dyspnea, productive cough or non-productive cough GI: Reports: melena (in colostomy); Denies: abdominal pain, nausea, vomiting or hematemesis : Denies: hematuria Musc: Denies: back pain Skin/Breast: Denies: rash Neuro: Reports: dizziness and other (fall earlier today); Denies: numbness in extremities Psych: Denies: anxiety Medications/Allergies Home Medications Medication Instructions Recorded Confirmed Last Taken Type amlodipine 2.5 mg tablet 2.5 mg PO DAILY 90 Days #90 tab 12/09/19 10/08/20 10/07/20 Rx apixaban 2.5 mg tablet 2.5 mg PO BID 90 Days #180 tab 12/18/19 10/08/20 10/07/20 Rx lisinopril 20 mg tablet 20 mg PO BID 90 Days #180 tab 01/26/20 10/08/20 10/07/20 Rx aspirin 81 mg tablet,delayed 81 mg PO DAILY 03/11/20 10/08/20 10/07/20 History release omega-3 fatty acids 1,000 mg 1,000 mg PO BID 03/11/20 10/08/20 10/07/20 History capsule pantoprazole 40 mg tablet,delayed 40 mg PO DAILY 03/11/20 10/08/20 10/07/20 History release simvastatin 40 mg tablet 40 mg PO BEDTIME 03/11/20 10/08/20 10/07/20 History sotalol 80 mg tablet 80 mg PO BID 03/11/20 10/08/20 10/07/20 History multivitamin [Multiple Vitamins] 1 tab PO DAILY 09/29/20 10/08/20 10/07/20 History levofloxacin [Levaquin] 500 mg PO DAILY 10/08/20 10/08/20 10/07/20 History Allergies Allergy/AdvReac Type Severity Reaction Status Date / Time No Known Allergies Allergy Verified 09/29/20 16:23 PFSH Acute PFSH: Medical History (Updated 10/08/20 @ 19:16 by Luiza Cabello MD) Anticoagulation adequate with anticoagulant therapy Eliquis Atrial fibrillation Carotid stenosis Hyperlipidemia Hypertension Sick sinus syndrome Subcapital fracture of right hip UTI (urinary tract infection) Surgical History 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 Pacemaker Status post aorto-coronary artery bypass graft -in 2002 Family History Grandmother CAD (coronary artery disease) Family/Other CAD (coronary artery disease) Denies family history of Diabetes Clotting disorder Dementia Hyperlipidemia Psychiatric illness Chronic kidney disease (CKD) Suicide Anesthesia complication Bleeding disorder Family history of premature coronary artery disease Lung disease Cancer Hypertension Stroke Social History Smoking and tobacco status: never smoked Alcohol intake: never Lives independently: Yes Current occupational status: retired Vitals/I&O/Wt Last Vital Signs Temp 97.9 F 10/08/20 13:27 Pulse 75 10/08/20 18:35 Resp 24 H 10/08/20 18:35 BP 113/51 10/08/20 18:35 Pulse Ox 97 10/08/20 18:35 Weight last 48 hrs Weight 52.163 kg Physical Exam Const: COMMON NORMALS: no acute distress, patient oriented x3 and alert GENERAL APPEARANCE: cooperative and comfortable ORIENTATION/CONSCIOUSNESS: Yes awake OTHER: -looks younger than stated age, very pleasant HENMT: COMMON NORMALS: normocephalic, atraumatic, hearing grossly normal bilaterally and moist oral mucous membranes HEAD & SCALP: normocephalic and atraumatic Eye: COMMON NORMALS: Equal, round and reactive pupils present, EOMs intact bilaterally and conjunctivae normal CONJUNCTIVA: Yes conjunctivae normal PUPIL: Yes Equal, round and reactive pupils present Neck/C-Spine: COMMON NORMALS: full ROM GENERAL: Yes normal visual inspection and Yes trachea midline Resp: COMMON NORMALS: normal respiratory effort, No retractions, No use of accessory muscles and clear to auscultation bilaterally EFFORT & INSPECTION: Yes able to speak in complete sentences, Yes symmetric chest movement and No tachypneic AUSCULTATION: clear to auscultation bilaterally OTHER: -on RA Cardio: COMMON NORMALS: regular rate, regular rhythm, S1 normal heart sound present, S2 normal heart sound present and No murmurs present (Cardio) RATE: regular rate RHYTHM: regular rhythm HEART SOUNDS: S1 normal heart sound present and S2 normal heart sound present GI: COMMON NORMALS: Normal to inspection, nondistended, normoactive bowel sounds present, Soft to palpation and non-tender PALPATION: Yes Soft to palpation Extremity: COMMON NORMALS: normal to inspection and no clubbing, cyanosis or edema; negative for no pedal edema NARRATIVE EXTREMITY EXAM: -RLE mildly internally rotated, dressing on lateral hip Neuro: COMMON NORMALS: patient oriented x3, moves all extremities, no focal motor deficits and no sensory deficits noted Psych: COMMON NORMALS: mental status grossly normal, Normal thought process present, cooperative, normal affect and speech normal SPEECH: Yes normal speech THOUGHT PROCESS: Normal thought process present Skin: COMMON NORMALS: no rashes or lesions noted, no jaundice, no petechiae a nd no mottling GENERAL SKIN EXAM: no rashes or lesions noted Data : 20 16:10 11/20 16:10 A&P Assessment and plan (1) Acute anemia: -Noted acutely worsening anemia (8.7->6.5) in less than 1 week -She recently had right bipolar hip arthroplasty following a subcapital hip fracture sustained following a mechanical fall; POD # 7 -Transfused 2 units of PRBCs -Monitor CBC thereafter -Close monitoring of vital signs -Monitor for further bleeding -Hold aspirin and Eliquis at this time -Patient reports history of black tarry output from colostomy; if able to obtain sample will send for fecal occult testing -Gentle IV fluid hydration Status: Acute (2) Orthostatic syncope: -Had an episode of orthostatic syncope secondary to acutely worsening anemia with a drop in hemoglobin from 8.4 on 10/04 to 6.5 today -Telemetry monitoring -Close monitoring of vital signs especially blood pressure -Strict fall precautions and assistance with all out of bed activity -Gentle IV fluid hydration -Recently treated for UTI; recheck UA -tested for COVID-19 during last admission; negative, no need for repeat testing Status: Acute (3) Subcapital fracture of right hip: -s/p right bipolar hip arthroplasty following a subcapital hip fracture sustained following a mechanical fall; POD # 7 -x-rays today show R prosthesis in good position, no displacement or dislocation -PT evaluation in AM Status: Inactive Qualifiers: Encounter type: initial encounter Fracture type: closed Qualified Code(s): S72.011A - Unspecified intracapsular fracture of right femur, initial encounter for closed fracture Additional A&P Information -hx of carotid stenosis; on statin, hold ASA -hx of hyperlipidemia; on statin -hx of chronic atrial fibrillation; resume sotalol -SSS s/p pacemaker; device interrogated during last admission and found to be functioning appropriately -s/p colostomy (since 1986) secondary to colon cancer; colostomy care as needed, patient has her own supplies at bedside -Advanced age; very independent at baseline -hx of CAD s/p CABG (2002); follows up with cardiology -cardiac diet as tolerated -GI ppx with PPI -DVT ppx with SCDs, no AC due to bleeding risk -Dispo: home with -Code status: DNR, ok with intubation if needed -Admit to medical surgical floor Attestations Medical Necessity Statement*: Holley Haque's hospital stay will require greater than 2 midnights for management of acutely worsening anemia and vasovagal syncope required transfusion of blood products, gentle IV fluid hydration and close monitoring of hemodynamic status. Time Spent in Patient Care: Greater than 35 minutes (>than 50% of time spent in counselling and/or direct pt care on unit) . Coding Level of Care Code Acute Rubber Thread Spooler for Vicki Gonzalez Diagnoses Acute anemia D64.9 Orthostatic syncope I95.1 Subcapital fracture of right hip S72.011A Encounter type: initial encounter Fracture type: closed
[2020-10-08] MEDS: sodium chloride 0.9% 1,000 ML 100 ML IV (19:38)
--- NOTE | 2020-10-08 19:43 | PC.NURSE ---
increased rate to 150 ml/hr on blood
--- NOTE | 2020-10-08 19:51 | PC.NURSE ---
Increased rate to 225 ml/hr.
[2020-10-08] MEDS: fentaNYL 50 mcg/mL INJ 2mL IVP (21:39)
[2020-10-08] MEDS: atorvastatin 40 mg Tablet 20 MG PO (23:58)
[2020-10-08] MEDS: sodium chloride 0.9% 1,000 ML 75 ML IV (23:59)
[2020-10-09] VITALS (11 sets, daily range): BP systolic 97–134; BP diastolic 50–90; PULSE 61–74; RESP 16–18; TEMP 36.5–37.2; O2SAT 93–98
[2020-10-09 05:10] LABS: Basophils % 0.4 %; Eosinophils # 0.1 10^3/uL (0.0-0.8); Eosinophils % 1.4 %; Hematocrit 23.1 % (37.0-47.0); Hemoglobin 7.1 g/dL (11.5-15.3); Lymphocytes # 1.5 10^3/uL (0.8-4.8); Lymphocytes % 16.3 %; Mean Corpuscular HGB Conc 30.7 g/dL (30.0-36.0); Mean Corpuscular Hemoglobin 27.2 pg (28.0-34.0); Mean Corpuscular Volume 88.5 fL (81-99); Mean Platelet Volume 9.1 fL (7.4-10.4); Monocytes # 0.9 10^3/uL (0.2-0.9); Monocytes % 9.4 %; Neutrophils # 6.49 10^3/uL (1.8-7.7); Neutrophils % 70.4 %; Nucleated Red Blood Cells % 0.3 %; Platelet Count 257 10^3/cmm (130-400); Red Blood Count 2.61 10^6/uL (4.1-5.3); Red Cell Distribution Width 15.3 % (12.1-15.1); White Blood Count 9.2 10^3/uL (4.0-10.0)
[2020-10-09 05:47] LABS: Anion Gap 11.4 (5-19); Blood Urea Nitrogen 20 mg/dL (8-23); Calcium 8.1 mg/dL (8.5-10.5); Carbon Dioxide 25 mmol/L (22-29); Chloride 108 mmol/L (98-107); Glucose 103 mg/dL (65-115); Osmolality Calculated 293 mOsm/kg (285-295); Potassium 4.4 mmol/L (3.5-5.1); Sodium 140 mmol/L (136-145)
[2020-10-09] MEDS: sotalol 80 mg Tablet PO ×2 (09:20→18:45)
[2020-10-09] MEDS: omega-3 fatty acids 1,000 mg Capsule 1000 MG PO ×2 (09:21→18:45)
[2020-10-09] MEDS: multivitamin therapeutic Tablet 1 TAB PO (09:21)
[2020-10-09] MEDS: pantoprazole DR 40 mg Tablet PO ×2 (09:21→18:45)
--- NOTE | 2020-10-09 10:01 | P.PN_ITS ---
Subjective Subjective: Interval history: Patient received 1 unit of PRBCs with hemoglobin slightly increased to 7.1 this morning, hemodynamically stable, afebrile and on room air. Will give an additional 1 unit of PRBCs and recheck H&H this afternoon. Pending urinalysis and collection of stool sample. Reports feeling better today and was able to work with therapy. Case briefly discussed with Dr. Ivy, request abduction pillow and continue posterior hip precautions. Medications: Reviewed: Yes Medication Review Details: Active Medications Generic Name Dose Route Start Last Admin Trade Name Freq PRN Reason Stop Dose Admin Acetaminophen 650 mg 10/08/20 22:26 Acetaminophen 32 5 Mg Tablet PO Q6H PRN Mild/Mod Pain Or Temp >/= 101 Hydrocodone Bitart /Acetaminophen 1 tab 10/08/20 22:26 Hydrocodone-Acet aminophen 5-325 Mg Tablet PO Q4H PRN MODERATE TO SEVER E PAIN Atorvastatin Calci um 20 mg 10/08/20 22:26 10/08/20 23:58 Atorvastatin 40 Mg Tablet PO 20 mg BEDTIME JAILYN Administration Sodium Chloride 1,000 mls @ 75 ml s/hr 10/08/20 22:26 10/08/20 23:59 Sodium Chloride 0.9% IV 75 mls/hr .[id number] JAILYN Administration Morphine Sulfate 2 mg 10/08/20 22:26 Morphine 4 Mg/Ml Sdv 1 Ml IVP Q4H PRN SEVERE PAIN Multivitamins Ther apeutic 1 tab 10/09/20 09:00 10/09/20 09:21 Multivitamin The rapeutic Tablet PO 1 tab DAILY JAILYN Administration [id number] Ethyl Esters 1,000 mg 10/09/20 09:00 10/09/20 09:21 [place]-3 Fatty Ac ids 1,000 Mg Capsu le PO 1,000 mg BID JAILYN Administration Ondansetron HCl 4 mg 10/08/20 22:26 Ondansetron 2 Mg /Ml Sdv 2 Ml IVP Q6H PRN NAUSEA AND VOMITI NG Pantoprazole Sodiu m 40 mg 10/09/20 09:00 10/09/20 09:[address] 40 Mg Tablet PO 40 mg BID JAILYN Administration Sotalol HCl 80 mg 10/09/20 09:00 10/09/20 09:20 Sotalol 80 Mg Ta blet PO 80 mg BID JAILYN Administration No Known Allergies Allergy (Verified 09/29/20 16:23) Vitals/I&O/Wt Last Vital Signs Temp 98.9 F 10/09/20 07:25 Pulse 71 10/09/20 07:25 Resp 18 10/09/20 07:25 BP 127/90 10/09/20 07:25 Pulse Ox 93 10/09/20 07:25 10/08/20 10/09/20 10/09/20 22:59 06:59 14:59 Intake Total 0 / 0 0 / 0 480 / 480 Balance 0 / 0 0 / 0 480 / 480 Weight last 48 hrs Weight 52.163 kg Physical Exam Const: COMMON NORMALS: no acute distress, patient oriented x3 and alert GE NERAL APPEARANCE: cooperative and comfortable ORIENTATION/CONSCIOUSNESS: Yes awake OTHER: -looks younger than stated age, very pleasant HENMT: COMMON NORMALS: normocephalic, atraumatic, hearing grossly normal bilaterally and moist oral mucous membranes HEAD & SCALP: normocephalic and atraumatic Eye: COMMON NORMALS: Equal, round and reactive pupils present, EOMs intact bilaterally and conjunctivae normal CONJUNCTIVA: Yes conjunctivae normal PUPIL: Yes Equal, round and reactive pupils present Neck/C-Spine: COMMON NORMALS: full ROM GENERAL: Yes normal visual inspection and Yes trachea midline Resp: COMMON NORMALS: normal respiratory effort, No retractions, No use of accessory muscles and clear to auscultation bilaterally EFFORT & INSPECTION: Yes able to speak in complete sentences, Yes symmetric chest movement and No tachypneic AUSCULTATION: clear to auscultation bilaterally OTHER: -on RA Cardio: COMMON NORMALS: regular rate, regular rhythm, S1 normal heart sound present, S2 normal heart sound present and No murmurs present (Cardio) RATE: regular rate RHYTHM: regular rhythm HEART SOUNDS: S1 normal heart sound present and S2 normal heart sound present GI: COMMON NORMALS: Normal to inspection, nondistended, normoactive bowel sounds present, Soft to palpation and non-tender PALPATION: Yes Soft to palpation Extremity: COMMON NORMALS: normal to inspection and no clubbing, cyanosis or edema; negative for no pedal edema NARRATIVE EXTREMITY EXAM: -RLE mildly internally rotated, dressing on lateral hip Neuro: COMMON NORMALS: patient oriented x3, moves all extremities, no focal motor deficits and no sensory deficits noted SENSORIUM/ORIENTATION: Yes alert Psych: COMMON NORMALS: mental status grossly normal, Normal thought process present, cooperative, normal affect and speech normal SPEECH: Yes normal speech THOUGHT PROCESS: Normal thought process present Skin: COMMON NORMALS: no rashes or lesions noted, no jaundice, no petechiae and no mottling GENERAL SKIN EXAM: no rashes or lesions noted Data : 10/09/20 04:17 10/09/20 04:17 A&P Assessment and plan (1) Acute anemia: -Noted acutely worsening anemia (8.7->6.5) in less than 1 week -She recently had right bipolar hip arthroplasty following a subcapital hip fracture sustained following a mechanical fall; POD # 8 -Transfused 1 unit of PRBCs; give an additional 1 unit today; repeat H/H this afternoon -Close monitoring of vital signs -continue to monitor for further bleeding -Hold aspirin and Eliquis at this time -Patient reports history of black tarry output from colostomy; if able to obtain sample will send for fecal occult testing -Gentle IV fluid hydration -patient recalls having polyps on prior colonoscopies but it has been several years since she has had one. Was previously taking iron supplements but none recently. Status: Acute (2) Orthostatic syncope: -Had an episode of orthostatic syncope secondary to acutely worsening anemia with a drop in hemoglobin from 8.4 on 10/04 to 6.5 today -Telemetry monitoring -Close monitoring of vital signs especially blood pressure -Strict fall precautions and assistance with all out of bed activity -Gentle IV fluid hydration -Recently treated for UTI; recheck UA -tested for COVID-19 during last admission; negative, no need for repeat testing Status: Acute (3) Subcapital fracture of right hip: -s/p right bipolar hip arthroplasty following a subcapital hip fracture sustained following a mechanical fall; POD # 8 -x-rays (10/08) show R prosthesis in good position, no displacement or dislocation -PT evaluation in AM -WBAT, abduction pillow, posterior hip precautions Status: Inactive Qualifiers: Encounter type: initial encounter Fracture type: closed Qualified Code(s): S72.011A - Unspecified intracapsular fracture of right femur, initial encounter for closed fracture Additional A&P Information -hx of carotid stenosis; on statin, hold ASA -hx of hyperlipidemia; on statin -hx of chronic atrial fibrillation; resume sotalol -SSS s/p pacemaker; device interrogated during last admission and found to be functioning appropriately -s/p colostomy (since 1986) secondary to colon cancer; colostomy care as needed, patient has her own supplies at bedside -Advanced age; very independent at baseline -hx of CAD s/p CABG (2002); follows up with cardiology -cardiac diet as tolerated -GI ppx with PPI -DVT ppx with SCDs, no AC due to bleeding risk -Dispo: home with HH -Code status: DNR, ok with intubation if needed Attestations Medical Necessity Statement*: Patient requires hospitalization for continued management of acutely worsening anemia requiring transfusion of additional blood products, continued monitoring of hemoglobin and hemodynamic status. Time Spent in Patient Care: 16 - 35 minutes (>than 50% of time spent in counselling and/or direct pt care on unit) . Coding Level of Care Code Acute Truck Driver Rubbish Collector for Elberttanisha Fwd Exam Comprehensive Diagnoses Acute anemia D64.9 Orthostatic syncope I95.1 Subcapital fracture of right hip S72.011A Encounter type: initial encounter Fracture type: closed
[2020-10-09] MEDS: sodium chloride 0.9% (100 ml) 100 ML (11:51)
--- NOTE | 2020-10-09 12:09 | PC.CHAP ---
Pastoral Care Encounter/Spiritual Assessment Type of Contact [] Declined push connector assembler visit [] Patient/Family/Request visit [] Outpatient visit [] Follow-up visit [] Physician referral [] Code/Alert [] Routine visit [] Staff referral [] Actively dying [] Patient sleeping [] Family support [] [] Out of room [] Palliative care [] [X] Receiving care in room [] Pre-surgical visit [] Trauma [] Long length of stay [] ICU visit [] Other: Relational/Emotional Strength [] Patient feels connected with others/family/visitors/staff [] Distress [] Loneliness/isolation [] Abandonment Spirituality of Patient [] Person of Divine [] Attends Taoist of their Divine [] Believes in Prayer [] Reads Bible or Anabaptist materials [] There are Spiritual issues to be addressed [employer]ram Sewer Interventions [] Prayer [] Active listening [] Non-anxious presence [] Spiritual/emotional support [] Crisis/trauma care [] Spiritual counseling [] Bereavement support [] Provided bereavement packet [] Provided Bible/devotional materials [] Provided toy/stuffed animal, coloring book to patient or family member [] Provided Communion [] Anointing/Hope [] Salvation [] Completed spiritual assessment [] Other: Impact on Illness or Injury [] Angry [] Fearful [] Anxious [] Often cries [] Exhaustion [] Unable to work [] Unable to attend temple [] Unable to walk/stand [] Unable to read [] Unable to drive [] Unable to eat/drink [] Unable to sleep [] Unable to be with family [] Patient intubated [] Other: Summary Time spent with patient
[2020-10-09 12:45] LABS: Add Urine Microscopic? YES; Bilirubin Urine Neg (Negative); Blood Urine Neg (Negative); Glucose Urine UA Norm (Normal); Ketones Urine Negative (Negative); Leukocyte Esterase Urine Negative (Negative); Nitrate Urine Negative (Negative); Protein Urine Neg (Negative); Specific Gravity, Urine 1.015 (1.005-1.030); Urine Appearance SL Hazy (CLEAR); Urine Color Yellow (Yellow); Urobilinogen Urine Norm (Negative); pH Urine 6 (5-7)
[2020-10-09 12:46] LABS: WBC Urine RARE /hpf (0-5)
[2020-10-09 12:47] LABS: Bacteria Urine TRACE /hpf; Mucus Urine TRACE /hpf
[2020-10-09 12:49] LABS: Add Urine Culture? No
--- NOTE | 2020-10-09 13:47 | PM.MISC ---
Miscellaneous Note Purpose of Documentation: Hospital visit Note: This patient is known to me from her recent hospitalization at which time she had a subcapital hip fracture the patient underwent a bipolar hip arthroplasty. She was admitted with what appears to be a GI bleed. Patient was hospitalized, she will need to continue her abduction pillow, significant physical therapy weightbearing as tolerated, and she is to follow posterior hip precautions.
[2020-10-09 15:43] LABS: Hematocrit 30.3 % (37.0-47.0)
[2020-10-09 15:46] LABS: Hemoglobin 9.3 g/dL (11.5-15.3)
[2020-10-09] MEDS: sodium chloride 0.9% 1,000 ML 75 ML IV (16:35)
[2020-10-09] MEDS: atorvastatin 40 mg Tablet 20 MG PO (20:38)
[2020-10-10] VITALS: BP 116/58; PULSE 64; RESP 18; TEMP 36.8; O2SAT 95
[2020-10-10 04:00] VITALS: BP 117/56; PULSE 63; RESP 17; TEMP 36.7; O2SAT 95
[2020-10-10 05:16] LABS: Basophils % 0.3 %; Eosinophils # 0.2 10^3/uL (0.0-0.8); Hematocrit 28.4 % (37.0-47.0); Hemoglobin 8.7 g/dL (11.5-15.3); Lymphocytes # 1.4 10^3/uL (0.8-4.8); Lymphocytes % 13.6 %; Mean Corpuscular HGB Conc 30.6 g/dL (30.0-36.0); Mean Corpuscular Hemoglobin 27.6 pg (28.0-34.0); Mean Corpuscular Volume 90.2 fL (81-99); Mean Platelet Volume 9.4 fL (7.4-10.4); Neutrophils % 74.1 %; Nucleated Red Blood Cells % 0.3 %; Platelet Count 251 10^3/cmm (130-400); Red Blood Count 3.15 10^6/uL (4.1-5.3); Red Cell Distribution Width 15.3 % (12.1-15.1); White Blood Count 10.5 10^3/uL (4.0-10.0)
[2020-10-10] MEDS: sodium chloride 0.9% 1,000 ML 75 ML IV (05:28)
[2020-10-10 07:35] VITALS: BP 117/56; PULSE 71; RESP 16; TEMP 37; O2SAT 100
[2020-10-10] MEDS: omega-3 fatty acids 1,000 mg Capsule 1000 MG PO ×2 (09:46→17:45)
[2020-10-10] MEDS: pantoprazole DR 40 mg Tablet PO ×2 (09:46→17:45)
[2020-10-10] MEDS: multivitamin therapeutic Tablet 1 TAB PO (09:46)
[2020-10-10] MEDS: sotalol 80 mg Tablet PO ×2 (09:46→17:45)
--- NOTE | 2020-10-10 11:05 | PC.CHAP ---
Pastoral Care Encounter/Spiritual Assessment Type of Contact [] Declined oracle r12 developer visit [] Patient/Family/Request visit [] Outpatient visit [] Follow-up visit [] Physician referral [] Code/Alert [] Routine visit [] Staff referral [] Actively dying [] Patient sleeping [] Family support [] [] Out of room [] Palliative care [] [X] Receiving care in room [] Pre-surgical visit [] Trauma [] Long length of stay [] ICU visit [] Other: Relational/Emotional Strength [] Patient feels connected with others/family/visitors/staff [] Distress [] Loneliness/isolation [] Abandonment Spirituality of Patient [] Person of Divine [] Attends Shinto of their Divine [] Believes in Prayer [] Reads Bible or Samaritan materials [] There are Spiritual issues to be addressed Oracle Programmer Analyst Interventions [] Prayer [] Active listening [] Non-anxious presence [] Spiritual/emotional support [] Crisis/trauma care [] Spiritual counseling [] Bereavement support [] Provided bereavement packet [] Provided Bible/devotional materials [] Provided toy/stuffed animal, coloring book to patient or family member [] Provided Communion [] Anointing/[place] [] Salvation [] Completed spiritual assessment [] Other: Impact on Illness or Injury [] Angry [] Fearful [] Anxious [] Often cries [] Exhaustion [] Unable to work [] Unable to attend congregational [] Unable to walk/stand [] Unable to read [] Unable to drive [] Unable to eat/drink [] Unable to sleep [] Unable to be with family [] Patient intubated [] Other: Summary Time spent with patient
[2020-10-10 11:38] VITALS: BP 116/67; PULSE 60; RESP 14; TEMP 36.3; O2SAT 96
--- NOTE | 2020-10-10 12:14 | P.PN_ITS ---
Subjective Subjective: Interval history: Hemoglobin at 8.7 today, which is appropriate s/p 2 units PRBCs. Hemodynamically stable, afebrile, resting quietly in bed, no apparent distress, no acute overnight events reported. Medications: Reviewed: Yes Medication Review Details: Active Medications Generic Name Dose Route Start Last Admin Trade Name Freq PRN Reason Stop Dose Admin Acetaminophen 650 mg 10/08/20 22:26 Acetaminophen 32 5 Mg Tablet PO Q6H PRN Mild/Mod Pain Or Temp >/= 101 Hydrocodone Bitart /Acetaminophen 1 tab 10/08/20 22:26 Hydrocodone-Acet aminophen 5-325 Mg Tablet PO Q4H PRN MODERATE TO SEVER E PAIN Apixaban 2.5 mg 10/10/20 18:00 Apixaban 5 Mg Ta blet PO BID JAILYN Atorvastatin Calci um 20 mg 10/08/20 22:26 10/09/20 20:38 Atorvastatin 40 Mg Tablet PO 20 mg BEDTIME JAILYN Administration Morphine Sulfate 2 mg 10/08/20 22:26 Morphine 4 Mg/Ml Sdv 1 Ml IVP Q4H PRN SEVERE PAIN Multivitamins Ther apeutic 1 tab 10/09/20 09:00 10/10/20 09:46 Multivitamin The rapeutic Tablet PO 1 tab DAILY JAILYN Administration Klsxb-1-Oxjy Ethyl Esters 1,000 mg 10/09/20 09:00 10/10/20 09:46 Balsam-3 Fatty Ac ids 1,000 Mg Capsu le PO 1,000 mg BID JAILYN Administration Ondansetron HCl 4 mg 10/08/20 22:26 Ondansetron 2 Mg /Ml Sdv 2 Ml IVP Q6H PRN NAUSEA AND VOMITI NG Pantoprazole Sodiu m 40 mg 10/09/20 09:00 10/10/20 09:[address] 40 Mg Tablet PO 40 mg BID JAILYN Administration Sotalol HCl 80 mg 10/09/20 09:00 10/10/20 09:46 Sotalol 80 Mg Ta blet PO 80 mg BID JAILYN Administration No Known Allergies Allergy (Verified 09/29/20 16:23) Vitals/I&O/Wt Last Vital Signs Temp 97.4 F L 10/10/20 11:38 Pulse 60 10/10/20 11:38 Resp 14 10/10/20 11:38 BP 116/67 10/10/20 11:38 Pulse Ox 96 10/10/20 11:38 10/09/20 10/10/20 10/10/20 22:59 06:59 14:59 Intake Total 966.25 / 2796.25 360 / 360 Output Total 300 / 600 401 / 401 Balance 666.25 / 2196.25 -41 / -41 Weight last 48 hrs Weight 62.188 kg Weight 61.689 kg Weight 52.163 kg Physical Exam Const: COMMON NORMALS: no acute distress, patient oriented x3 and alert GENERAL APPEARANCE: cooperative and comfortable ORIENTATION/CONSCIOUSNESS: Yes awake OTHER: -looks younger than stated age, very pleasant HENMT: COMMON NORMALS: normocephalic, atraumatic, hearing grossly normal bilaterally and moist oral mucous membranes HEAD & SCALP: normocephalic and atraumatic Eye: COMMON NORMALS: Equal, round and reactive pupils present, EOMs intact bilaterally and conjunctivae normal CONJUNCTIVA: Yes conjunctivae normal PUPIL: Yes Equal, round and reactive pupils present Neck/C-Spine: COMMON NORMALS: full ROM GENERAL: Yes normal visual inspection and Yes trachea midline Resp: COMMON NORMALS: normal respiratory effort, No retractions, No use of accessory muscles and clear to auscultation bilaterally EFFORT & INSPECTION: Yes able to speak in complete sentences, Yes symmetric chest movement and No tachypneic AUSCULTATION: clear to auscultation bilaterally OTHER: -on RA Cardio: COMMON NORMALS: regular rate, regular rhythm, S1 normal heart sound present, S2 normal heart sound present and No murmurs present (Cardio) RATE: regular rate RHYTHM: regular rhythm HEART SOUNDS: S1 normal heart sound present and S2 normal heart sound present GI: COMMON NORMALS: Normal to inspection, nondistended, normoactive bowel sounds present, Soft to palpation and non-tender PALPATION: Yes Soft to palpation Extremity: COMMON NORMALS: normal to inspection and no clubbing, cyanosis or edema; negative for no pedal edema NARRATIVE EXTREMITY EXAM: -RLE mildly internally rotated, dressing on lateral hip, abductor pillow in place Neuro: COMMON NORMALS: patient oriented x3, moves all extremities, no focal motor deficits and no sensory deficits noted SENSORIUM/ORIENTATION: Yes alert Psych: COMMON NORMALS: mental status grossly normal, Normal thought process present, cooperative, normal affect and speech normal SPEECH: Yes normal speech THOUGHT PROCESS: Normal thought process present Skin: COMMON NORMALS: no rashes or lesions noted, no jaundice, no petechiae and no mottling GENERAL SKIN EXAM: no rashes or lesions noted Data : 10/10/20 04:10 10/09/20 04:17 Micro: Microbiology 10/09/20 11:10 Occult Blood (FIT) - Final Stool Routine Collection A&P Assessment and plan (1) Acute anemia: -Noted acutely worsening anemia (8.7->6.5) in less than 1 week -She recently had right bipolar hip arthroplasty following a subcapital hip fracture sustained following a mechanical fall; POD # 9 -s/p 2 units of PRBCs; Hg up to 8.7 -Close monitoring of vital signs -continue to monitor for further bleeding -Hold aspirin and resume low dose Eliquis at this time and repeat H/H in AM -Patient reports history of black tarry output from colostomy; fecal occult testing + -d/c IVF, encourage oral hydration -patient recalls having polyps on prior colonoscopies but it has been several years since she has had one. Was previously taking iron supplements but none recently. Status: Acute (2) Orthostatic syncope: -Had an episode of orthostatic syncope secondary to acutely worsening anemia with a drop in hemoglobin from 8.4 on 11/ to 6.5 on admission -Telemetry monitoring -Close monitoring of vital signs especially blood pressure -Strict fall precautions and assistance with all out of bed activity -d/c IVF; encourage oral hydration -Recently treated for UTI; UA negative for infection -tested for COVID-19 during last admission; negative, no need for repeat testing Status: Acute (3) Subcapital fracture of right hip: -s/p right bipolar hip arthroplasty following a subcapital hip fracture sustained following a mechanical fall; POD # 9 -x-rays (11) show R prosthesis in good position, no displacement or dislocation -PT evaluation appreciated -WBAT, abduction pillow, posterior hip precautions Status: Inactive Qualifiers: Encounter type: initial encounter Fracture type: closed Qualified Code(s): S72.011A - Unspecified intracapsular fracture of right femur, initial encounter for closed fracture Additional A&P Information -hx of carotid stenosis; on statin, hold ASA -hx of hyperlipidemia; on statin -hx of chronic atrial fibrillation; continue sotalol -SSS s/p pacemaker; device interrogated during last admission and found to be functioning appropriately -s/p colostomy (since 1986) secondary to colon cancer; colostomy care as needed, patient has her own supplies at bedside -Advanced age; very independent at baseline -hx of CAD s/p CABG (2002); follows up with cardiology -cardiac diet as tolerated -GI ppx with PPI -DVT ppx with SCDs, no AC due to bleeding risk -Dispo: home with -Code status: DNR, ok with intubation if needed Attestations Medical Necessity Statement*: Patient requires hospitalization for continued monitoring of Hg with resumption of anticoagulation. Time Spent in Patient Care: 16 - 35 minutes (>than 50% of time spent in counselling and/or direct pt care on unit) . Coding Level of Care Code Acute Account Executive Software Sales for Vicki Fwd Exam Comprehensive Diagnoses Acute anemia D64.9 Orthostatic syncope I95.1 Subcapital fracture of right hip S72.011A Encounter type: initial encounter Fracture type: closed
[2020-10-10 15:57] VITALS: BP 110/57; PULSE 62; RESP 14; TEMP 36.7; O2SAT 91
[2020-10-10] MEDS: apixaban 5 mg Tablet 2.5 MG PO (17:44)
[2020-10-10 19:30] VITALS: BP 106/69; PULSE 63; RESP 16; TEMP 36.8; O2SAT 92
[2020-10-10] MEDS: atorvastatin 40 mg Tablet 20 MG PO (21:05)
[2020-10-11] VITALS (8 sets, daily range): BP systolic 102–152; BP diastolic 54–82; PULSE 59–97; RESP 15–18; TEMP 36.5–36.8; O2SAT 92–98
[2020-10-11 05:24] LABS: Basophils # 0.1 10^3/uL (0.0-0.1); Basophils % 0.6 %; Eosinophils # 0.3 10^3/uL (0.0-0.8); Eosinophils % 2.6 %; Hematocrit 29.2 % (37.0-47.0); Hemoglobin 8.8 g/dL (11.5-15.3); Lymphocytes # 1.4 10^3/uL (0.8-4.8); Lymphocytes % 13.1 %; Mean Corpuscular HGB Conc 30.1 g/dL (30.0-36.0); Mean Corpuscular Hemoglobin 27.8 pg (28.0-34.0); Mean Corpuscular Volume 92.1 fL (81-99); Mean Platelet Volume 9.2 fL (7.4-10.4); Monocytes # 0.8 10^3/uL (0.2-0.9); Monocytes % 7.3 %; Neutrophils # 8.07 10^3/uL (1.8-7.7); Neutrophils % 75.7 %; Nucleated Red Blood Cells % 0 %; Platelet Count 276 10^3/cmm (130-400); Red Blood Count 3.17 10^6/uL (4.1-5.3); Red Cell Distribution Width 15.2 % (12.1-15.1); White Blood Count 10.7 10^3/uL (4.0-10.0)
[2020-10-11] MEDS: apixaban 5 mg Tablet 2.5 MG PO (09:24)
[2020-10-11] MEDS: omega-3 fatty acids 1,000 mg Capsule 1000 MG PO (09:24)
[2020-10-11] MEDS: multivitamin therapeutic Tablet 1 TAB PO (09:24)
[2020-10-11] MEDS: pantoprazole DR 40 mg Tablet PO (09:24)
[2020-10-11] MEDS: sotalol 80 mg Tablet PO (09:24)
--- NOTE | 2020-10-11 09:50 | PC.SOCIAL ---
IMM Page 2 of IMM given to patient. Initialed, dated, and timed and placed in chart.
--- NOTE | 2020-10-11 11:19 | P.DS_ITS ---
Discharge Providers Date of Admission: 10/08/20 18:31 Date of Discharge: October 11, 2020 Attending Provider at Admission: Luiza Cabello MD Attending Provider at Discharge: Kamlesh Holland Primary Care Provider: BARBARA Nolen Diagnoses at Discharge Discharge Diagnosis (1) Acute anemia: Status: Acute (2) Orthostatic syncope: Status: Acute (3) Subcapital fracture of right hip: Status: Inactive Qualifiers: Encounter type: initial encounter Fracture type: closed Qualified Code(s): S72.011A - Unspecified intracapsular fracture of right femur, initial encounter for closed fracture Reason for Visit Reason for Visit: WEAKNESS, FALL AFTER HIP REPLACEMENT Hospital Course Hospital Course Pleasant 85-year-old lady was brought in for evaluation after a syncopal episode at home. She was recently admitted for right bipolar hip arthroplasty after subcapital hip fracture after a mechanical fall. She is endorsed black stools coming from colostomy (history of colectomy). Aspirin was held during his hospitalization. She received PRBC transfusion. Responded well. Subsequently Eliquis had been resumed. Hemoglobin remained stable Noted to be Hemoccult positive., Today at 8.8. She has been getting up with physical therapy. Feeling better. Discussed with her she will return home today and she feels strong enough. Requested that she have family check up on her daily, and we are also setting up home health care for her as well. Discussed with her to also follow-up with surgery in office for additional assessment by possible endoscopy given Hemoccult positive stools. Her PPI dose is increased to twice daily. Follow up with ortho as before. Complete Levaquin for E coli UTI. Home oxygen evaluation requested. Physical Exam Const: COMMON NORMALS: no acute distress, patient oriented x3 and alert GENERAL APPEARANCE: comfortable ORIENTATION/CONSCIOUSNESS: Yes awake OTHER: Pleasant, conversant. HENMT: COMMON NORMALS: oropharynx normal Neck/C-Spine: COMMON NORMALS: no JVD Resp: COMMON NORMALS: normal respiratory effort and clear to auscultation bilaterally AUSCULTATION: clear to auscultation bilaterally Cardio: COMMON NORMALS: no JVD, regular rhythm, S1 normal heart sound present, S2 normal heart sound present and No murmurs present (Cardio) RHYTHM: regular rhythm HEART SOUNDS: S1 normal heart sound present and S2 normal heart sound present GI: COMMON NORMALS: Normal to inspection, nondistended, normoactive bowel zuly nds present, Soft to palpation and non-tender PALPATION: Yes Soft to palpation Extremity: COMMON NORMALS: no joint enlargement and no pedal edema OTHER: R hip groin appears clean, without any bleeding, discharge from the wound. There is minimal swelling of the right thigh. Right lower extremity well perfused. No right ankle swelling. Neuro: COMMON NORMALS: patient oriented x3 and moves all extremities SENSORIUM/ORIENTATION: Yes alert Skin: COMMON NORMALS: no rashes or lesions noted GENERAL SKIN EXAM: no rashes or lesions noted Discharge Data Data Completed and Pending: Completed Studies During Hospitalization Category Date Time Status XR hip RT 2-3V wo /w pel* [id number] Stat Exams 10/08/20 13:44 Completed Labs from last 24 hours 10/11/20 04:33 WBC 10.7 H RBC 3.17 L Hgb 8.8 L Hct 29.2 L MCV 92.1 MCH 27.8 L MCHC 30.1 RDW 15.2 H Plt Count 276 MPV 9.2 Neut % (Auto) 75.7 Lymph % (Auto) 13.1 [place] % (Auto) 7.3 Eos % (Auto) 2.6 Baso % (Auto) 0.6 Neut # (Auto) 8.07 H Lymph # (Auto) 1.4 [place] # (Auto) 0.8 Eos # (Auto) 0.3 Baso # (Auto) 0.1 Nucleated RBC % (a uto) 0 Nucleated RBCs # 0.0 Vitals: Last Vital Signs Temp 97.7 F 10/11/20 07:26 Pulse 61 10/11/20 07:26 Resp 16 10/11/20 07:26 BP 108/67 10/11/20 07:26 Pulse Ox 94 10/11/20 07:26 Discharge Plan Discharge Patient Disposition: Home Health Service Condition: Stable Prescriptions: Continued omega-3 fatty acids [Fish Oil Concentrate] 1,000 mg capsule 1,000 mg PO BID RF: 0 sotalol 80 mg tablet 80 mg PO BID RF: 0 simvastatin 40 mg tablet 40 mg PO BEDTIME RF: 0 Eliquis 2.5 mg tablet 2.5 mg PO BID 90 Days Qty: 180 RF: 3 multivitamin [Multiple Vitamins] Tablet 1 tab PO DAILY RF: 0 Changed pantoprazole 40 mg tablet,delayed release (DR/EC) 40 mg PO BIDWM Qty: 60 RF: 0 Held aspirin [Adult Low Dose Aspirin] 81 mg tablet,delayed release (DR/EC) 81 mg PO DAILY RF: 0 Hold Instructions: Resume on 10/25/20. Discontinued amlodipine 2.5 mg tablet 2.5 mg PO DAILY 90 Days Qty: 90 RF: 3 lisinopril 20 mg tablet 20 mg PO BID 90 Days Qty: 180 RF: 3 Levaquin 500 mg Tablet 500 mg PO DAILY RF: 0 Discharge Orders: Discharge Order (Routine); Ordered 10/11/20 Ordered By: Kamlesh Holland Referrals: Austin Rosa MD [Physician] - 1 week (Anemia, positive hemoccult, arrangements for endoscopic eval) Arleth Ivy MD [Physician] - (Please confirm appointment) Major Carbajal FNP [Primary Care Provider] - 4-7 days Discharge Diet: Usual diet Discharge Activity: Limit activity as instructed, Use walker/crutches as instructed and As per PT/OT instructions Activity Restrictions/Additional Instructions: Please hold aspirin. If you notice fresh bleeding, having lightheadedness, fainting or abnormal symptoms please call an ambulance. Please set up with general surgeon and appointment for additional evaluation by endoscopy. Please have your primary care doctor follow-up your blood count level. Follow-up with orthopedics in office as previously recommended. Discharge Attestations Time Spent in Discharge Care*: greater than 30 min Status at Discharge: Cognitive status at discharge: cognitively intact , Behavioral status at discharge: cooperative , Quality Metrics Clinical Quality Measures During this hospital stay, did patient experience: None Coding Level of Care Code Acute Microsoft Solutions Architect for Vicki Fwd Diagnoses Acute anemia D64.9 Orthostatic syncope I95.1 Subcapital fracture of right hip S72.011A Encounter type: initial encounter Fracture type: closed
== END 2020-10-11 16:20 | disposition home health service (06) | DRG 812 ==
LOC: ER 16:47 → MEDSURG 19:59
PROVIDERS: Emergency Medicine; Admitting Provider Family Medicine; Emergency Provider Family Medicine; PCP Registered Nurse; Visit Provider Internal Medicine
DX: D64.9 Anemia, unspecified (principal); I48.20 Chronic atrial fibrillation, unspecified; N39.0 Urinary tract infection, site not specified; K92.1 Melena; I95.1 Orthostatic hypotension; W19.XXXA Unspecified fall, initial encounter; Z96.641 Presence of right artificial hip joint; Z93.3 Colostomy status; Z79.01 Long term (current) use of anticoagulants; I65.29 Occlusion and stenosis of unspecified carotid artery; E78.5 Hyperlipidemia, unspecified; I10 Essential (primary) hypertension; Z87.440 Personal history of urinary (tract) infections; Z85.038 Personal history of other malignant neoplasm of large intestine; Z95.1 Presence of aortocoronary bypass graft; I25.10 Atherosclerotic heart disease of native coronary artery without angina pectoris; B96.20 Unspecified Escherichia coli [E. coli] as the cause of diseases classified elsewhere
CPT/HCPCS: 12345; 36415; 36430; 73502; 80048; 80053; 81001; 82274; 82550; 85014; 85018; 85025; 86850; 86900; 86920; 93005; 97110; 97116; 97161; 99283; J3010; J7030; P9016

== ENCOUNTER → 2020-10-14 08:24 | Outpatient (BNVA) | payer MEDICARE, OTHER, SELFPAY | PROVIDERS: PCP Registered Nurse; Visit Provider Specialist | DX: Z98.890 Other specified postprocedural states (principal); Z96.641 Presence of right artificial hip joint | CPT/HCPCS: 73502 ==

== ENCOUNTER → 2022-04-13 13:54 | Outpatient (BNVA) | payer MEDICARE, OTHER, SELFPAY | PROVIDERS: PCP Registered Nurse; Visit Provider Internal Medicine Cardiovascular Disease | DX: I25.10 Atherosclerotic heart disease of native coronary artery without angina pectoris (principal); I48.91 Unspecified atrial fibrillation; I10 Essential (primary) hypertension; Z95.1 Presence of aortocoronary bypass graft; Z95.0 Presence of cardiac pacemaker; Z79.01 Long term (current) use of anticoagulants; E78.5 Hyperlipidemia, unspecified | CPT/HCPCS: 99214 ==

== ENCOUNTER → 2022-10-27 09:50 | Outpatient (BNVA) | payer MEDICARE, OTHER, SELFPAY | PROVIDERS: PCP Registered Nurse; Visit Provider Internal Medicine Cardiovascular Disease | DX: Z45.010 Encounter for checking and testing of cardiac pacemaker pulse generator [battery] (principal) | CPT/HCPCS: 93280 ==

== ENCOUNTER → 2022-11-21 09:30 | Outpatient (BNVA) | payer MEDICARE, OTHER, SELFPAY | PROVIDERS: PCP Registered Nurse; Visit Provider Internal Medicine Cardiovascular Disease | DX: I25.10 Atherosclerotic heart disease of native coronary artery without angina pectoris (principal); Z95.1 Presence of aortocoronary bypass graft; Z95.0 Presence of cardiac pacemaker; Z79.01 Long term (current) use of anticoagulants; I48.91 Unspecified atrial fibrillation; I10 Essential (primary) hypertension; E78.5 Hyperlipidemia, unspecified | CPT/HCPCS: 99214 ==

== ENCOUNTER → 2023-06-26 15:20 | Outpatient (BNVA) | payer MEDICARE, OTHER, SELFPAY | PROVIDERS: PCP Registered Nurse; Visit Provider Registered Nurse | DX: D64.9 Anemia, unspecified (principal) | CPT/HCPCS: 80053; 85025 ==

== ENCOUNTER → 2023-08-30 13:58 | Outpatient (BNVA) | payer MEDICARE, OTHER, SELFPAY | PROVIDERS: PCP Registered Nurse; Visit Provider Internal Medicine Cardiovascular Disease | DX: I25.10 Atherosclerotic heart disease of native coronary artery without angina pectoris (principal); Z95.1 Presence of aortocoronary bypass graft; Z95.0 Presence of cardiac pacemaker; Z79.01 Long term (current) use of anticoagulants; I48.91 Unspecified atrial fibrillation; I10 Essential (primary) hypertension; E78.5 Hyperlipidemia, unspecified | CPT/HCPCS: 99214 ==

== ENCOUNTER → 2023-09-13 14:29 | Outpatient (BNVA) | payer MEDICARE, OTHER, SELFPAY | PROVIDERS: PCP Registered Nurse; Visit Provider Student in an Organized Health Care Education/Training Program | DX: S52.501A Unspecified fracture of the lower end of right radius, initial encounter for closed fracture; S42.201A Unspecified fracture of upper end of right humerus, initial encounter for closed fracture; W01.0XXA Fall on same level from slipping, tripping and stumbling without subsequent striking against object, initial encounter; Z46.89 Encounter for fitting and adjustment of other specified devices; S52.501D Unspecified fracture of the lower end of right radius, subsequent encounter for closed fracture with routine healing; X58.XXXD Exposure to other specified factors, subsequent encounter | CPT/HCPCS: 23600; 25600; 73030; 73100; 97760; 99204; L3982 ==

== ENCOUNTER 2023-09-13 15:40 | Outpatient (CLI) | payer MEDICARE, OTHER, SELFPAY | END 2023-09-13 15:41 | disposition home or self-care (01) | LOC: SPT 15:41 | PROVIDERS: PCP Registered Nurse; Visit Provider Student in an Organized Health Care Education/Training Program | DX: Z46.89 Encounter for fitting and adjustment of other specified devices (principal); S52.501D Unspecified fracture of the lower end of right radius, subsequent encounter for closed fracture with routine healing; X58.XXXD Exposure to other specified factors, subsequent encounter; S52.501A Unspecified fracture of the lower end of right radius, initial encounter for closed fracture; S42.201A Unspecified fracture of upper end of right humerus, initial encounter for closed fracture; W01.0XXA Fall on same level from slipping, tripping and stumbling without subsequent striking against object, initial encounter | CPT/HCPCS: 23600; 25600; 97760; 99204; L3982 ==

== ENCOUNTER → 2023-10-23 14:59 | Outpatient (BNVA) | payer MEDICARE, SELFPAY | PROVIDERS: PCP Registered Nurse; Visit Provider Student in an Organized Health Care Education/Training Program | DX: S52.501A Unspecified fracture of the lower end of right radius, initial encounter for closed fracture (principal); S42.201A Unspecified fracture of upper end of right humerus, initial encounter for closed fracture; X58.XXXA Exposure to other specified factors, initial encounter | CPT/HCPCS: 73030; 73110; 97760; 99213; L3908 ==

== ENCOUNTER 2023-10-23 16:20 | Outpatient (CLI) | payer MEDICARE, SELFPAY | END 2023-10-23 16:21 | disposition home or self-care (01) | LOC: SPT 16:21 | PROVIDERS: PCP Registered Nurse; Visit Provider Student in an Organized Health Care Education/Training Program | DX: Z46.89 Encounter for fitting and adjustment of other specified devices (principal); S52.501D Unspecified fracture of the lower end of right radius, subsequent encounter for closed fracture with routine healing; X58.XXXD Exposure to other specified factors, subsequent encounter | CPT/HCPCS: 97760; 99213; L3908 ==

== ENCOUNTER 2023-12-20 12:01 | Emergency (ER) | payer MEDICARE, SELFPAY ==
--- NOTE | 2023-12-20 12:03 | XR_ITS ---
WS: [id number] XR chest 1V portable [id number] REASON FOR EXAM: dyspnea/cough FINDINGS: Sternal sutures. Previous coronary artery bypass surgery. Cardiac device cardiac device left chest. Drains left subclavian vein leads to the right atrium and r ight ventricular apex. Mild tortuosity of the thoracic aorta. Mass density overlying the middle lower mediastinum, presumed hiatal hernia. No acute/subacute pulmonary parenchymal abnormality. Blunting of the left costophrenic angle which may indicate the presence of a small left pleural effus ion. Old healed fracture of the left humeral surgical neck. IMPRESSION: Possible small left pleural effusion, otherwise no findings of acute chest abnormality.
--- NOTE | 2023-12-20 12:03 | ECG_ITS ---
[facility] Test Date: 2023-12-20 Pat Name: Holley Haque Department: Room: Gender: Female Tile Installer: : 1935 Requested By: Rod Dean Order Number: [id number] Camilo MD: Jabier Falk M.D. Measurements Intervals [place] Rate: 61 P: 258 MI: 158 QRS: -3 QRSD: 85 T: 10 QT: 410 QTc: 414 Interpretive Statements ELECTRONIC ATRIAL PACEMAKER ABNORMAL RHYTHM ECG Compared to ECG 10/08/2020 15:17:54 Sinus rhythm no longer present Sinus arrhythmia no longer present Short MI interval no longer present Myocardial infarct finding no longer present Electronically Signed On 12-21-2023 6:48:55 VOICE PROFESSOR by Jabier Falk M.D. [id number]
[2023-12-20 12:06] VITALS: BP 165/92; PULSE 79; TEMP 36.8; O2SAT 97; BMI 18.6
--- NOTE | 2023-12-20 12:24 | ED_ITS ---
HPI - Weakness 2 General: Chief complaint: Weakness Stated complaint: general weakness Time Seen by Provider: 12/20/23 12:03 Source: patient Mode of arrival: EMS History of Present Illness: 88-year-old female arrives by EMS from [facility] with complaints of generalized weakness nothing specific. She denies abdominal pain shortness of breath chest pain no dysuria urgency or frequency no fever sweats or chills. No diarrhea. She does have a left lower quadrant colostomy she had been present for 20 years she was told she had colon cancer but she states she thinks they were wrong. MD Complaint: generalized weakness Onset (ago): day(s) (3) Duration: constant Location: generalized Relieving factors: none Exacerbating factors: none Associated symptoms: Denies chest pain, chills, confusion, melena, decreased appetite, diaphoresis, dysuria, easy bruising, fever(s), headache(s), myalgias, nausea, rash, short of breath, syncope or vomiting Review of Systems 2 Const: Denies: fever(s), chills or diaphoresis Card: Denies: chest pain or syncope Resp: Denies: dyspnea GI: Denies: nausea, vomiting or melena : Denies: dysuria Musc: Denies: neck pain or back pain Skin/Breast: Denies: rash Neuro: Denies: headache(s) or confusion Jay/Lymph: Denies: easy bruising PFSH ED 2 PFSH: Medical History UTI (urinary tract infection) Subcapital fracture of right hip Sick sinus syndrome Carotid stenosis Anticoagulation adequate with anticoagulant therapy Eliquis Hypertension Hyperlipidemia Atrial fibrillation Surgical History History of right hip hemiarthroplasty 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 Status post aorto-coronary artery bypass graft -in 2002 Pacemaker Family History Grandmother CAD (coronary artery disease) Family/Other CAD (coronary artery disease) Denies family history of Diabetes Clotting disorder Dementia Hyperlipidemia Psychiatric illness Chronic kidney disease (CKD) Suicide Anesthesia complication Bleeding disorder Family history of premature coronary artery disease Lung disease Cancer Hypertension Stroke Social History Smoking and tobacco/nicotine status: never used tobacco/nicotine Alcohol intake: never Substance/Drug Use: never Lives independently: Yes Current occupational status: retired Physical Exam 2 Const: COMMON NORMALS: no acute distress GENERAL APPEARANCE: cooperative and comfortable ORIENTATION/CONSCIOUSNESS: Yes awake, Yes oriented to person, Yes oriented to place and Yes oriented to time HENMT: COMMON NORMALS: normocephalic, atraumatic and hearing grossly normal bilaterally HEAD & SCALP: normocephalic and atraumatic Resp: COMMON NORMALS: normal respiratory effort, No retractions, No use of accessory muscles and clear to auscultation bilaterally AUSCULTATION: clear to auscultation bilaterally Cardio: COMMON NORMALS: regular rate, regular rhythm and No murmurs present (Cardio) RATE: regular rate RHYTHM: regular rhythm GI: COMMON NORMALS: Soft to palpation and No hepatosplenomegaly present A USCULTATION: Yes normoactive bowel sounds PALPATION: Yes Soft to palpation, No Tenderness to palpation present (GI), No Guarding due to palpation present (GI) and Yes No hepatosplenomegaly present Extremity: COMMON NORMALS: normal to inspection, capillary refill normal, no clubbing, cyanosis or edema, no calf tenderness and no pedal edema Neuro: SENSORIUM/ORIENTATION: Yes oriented to person, Yes oriented to place and Yes oriented to time Skin: COMMON NORMALS: no rashes or lesions noted GENERAL SKIN EXAM: no rashes or lesions noted Course 2 Vital Signs: Vital signs: Vital Signs Temperature 98.3 F 12/20/23 12:06 Pulse Rate 65 12/20/23 14:50 Respiratory Rate 18 12/20/23 14:50 Blood Pressure 169/72 12/20/23 14:50 Pulse Oximetry 96 12/20/23 14:50 Oxygen Delivery Me thod Room Air 12/20/23 14:50 MDM - Weakness Medical Decision Making Cystitis. Start Macrodantin 1 p.o. twice daily vital signs otherwise stable reviewed findings with the patient discharge home return if has further problems Medical Records I reviewed the patient's medical records. Lab Data I reviewed the patient's lab results. 12/20/23 12:26 12/20/23 12:26 Laboratory Results WBC 8.99 10^3/uL (3.29-11.43) 12/20/23 12:26 RBC 4.59 10^6/uL (3.85-5.65) 12/20/23 12:26 Hgb 11.70 g/dL (11.27-16.99) 12/20/23 12:26 Hct 38.2 % (36-47) 12/20/23 12: MCV 83.2 fl (85-98) L 12/20/23 12:26 MCH 25.5 pg (27-33) L 12/20/23 12: MCHC 30.6 g/dL (30-55) 12/20/23 12:26 RDW 14.4 % (12.1-15.1) 12/20/23 12:26 Plt Count 263 10^3/cmm (157-399) 12/20/23 12: MPV 9.0 fL (7.4-10.4) 12/20/23 12: Neut % (Auto) 78.7 % 12/20/23 12: Lymph % (Auto) 11.9 % 12/20/23 12:26 [place] % (Auto) 6.0 % 12/20/23 12:26 Eos % (Auto) 2.2 % 12/20/23 12:26 Baso % (Auto) 0.8 % 12/20/23 12:26 Neut # (Auto) 7.07 10^3/uL (1.8-7.7) 12/20/23 12:26 Lymph # (Auto) 1.1 10^3/uL (0.8-4.8) 12/20/23 12:26 [place] # (Auto) 0.5 10^3/uL (0.2-0.9) 12/20/23 12:26 Eos # (Auto) 0.2 10^3/uL (0.0-0.8) 12/20/23 12:26 Baso # (Auto) 0.1 10^3/uL (0.0-0.1) 12/20/23 12:26 Nucleated RBC % (auto) 0 % 12/20/23 12: Nucleated RBCs # 0.0 /100WBC 12/20/23 12:26 Sodium 139 mmol/L (136-145) 12/20/23 12:26 Potassium 4.1 mmol/L (3.5-5.1) 12/20/23 12:26 Chloride 105 mmol/L (98-107) 12/20/23 12:26 Carbon Dioxide 23 mmol/L (22-29) 12/20/23 12:26 Anion Gap 15.1 (5-19) 12/20/23 12:26 BUN 10 mg/dL (8-23) 12/20/23 12: Creatinine 0.6 mg/dL (0.5-0.9) 12/20/23 12:26 GFR Calculation Not Reportable 12/20/23 12: Glucose 119 mg/dL (65-115) H 12/20/23 12:26 Calculated Osmolality 288 mOsm/kg (285-295) 12/20/23 12: Calcium 9.0 mg/dL (8.5-10.5) 12/20/23 12: Total Bilirubin 0.5 mg/dL (0.15-1.2) 12/20/23 12: AST 16 U/L (0-32) 12/20/23 12: ALT 8 U/L (0-33) 12/20/23 12:26 Alkaline Phosphatase 77 U/L (35-105) 12/20/23 12:26 Troponin T Baseline 13 ng/L (0-10) H 12/20/23 12:26 Troponin T 120 Minute 11.60 ng/L (0-10) H 12/20/23 14:33 Delta Troponin T -1.40 ABS# (0-10) L 12/20/23 14:33 Total Protein 6.0 g/dL (6.6-8.7) L 12/20/23 12:26 Albumin 3.5 g/dL (3.5-5.2) 12/20/23 12:26 Globulin 2.5 g/dL (1.3-4.6) 12/20/23 12:26 Urine Color Yellow (Yellow) 12/20/23 12:30 Urine Appearance Clear (CLEAR) 12/20/23 12: Urine pH 7 (5-7) 12/20/23 12:30 Ur Specific [place] 1.010 (1.005-1.030) 12/20/23 12:30 Urine Protein Neg (Negative) 12/20/23 12: Urine Glucose (UA) Norm (Normal) 12/20/23 12:30 Urine Ketones Negative (Negative) 12/20/23 12:30 Urine Blood Neg (Negative) 12/20/23 12:30 Urine Nitrate Negative (Negative) 12/20/23 12:30 Urine Bilirubin Neg (Negative) 12/20/23 12:30 Urine Urobilinogen Norm mg/dL (Negative) 12/20/23 12:30 Ur Leukocyte Esterase 1+ (Negative) H 12/20/23 12:30 Urine RBC None /hpf (0-2) 12/20/23 12:30 Urine WBC 0-4 /hpf (0-5) H 12/20/23 12:30 Ur Squamous Epith Cells Rare /hpf (0-5) 12/20/23 12:30 Amorphous Sediment Not Reportable 12/20/23 12:30 Urine Bacteria None /hpf (NONE) 12/20/23 12:30 Urine Mucus None /hpf 12/20/23 12:30 All radiology interpretation(s) finalized by discharge Discharge Plan Discharge Patient Disposition: Home Clinical Impression: Cystitis Condition: Stable Prescriptions: New Macrobid 100 mg capsule 100 mg PO BID 7 Days Qty: 14 0RF Rx Instructions: must administer with a meal/food No Action (DME) Wrist Brace See Rx Instructions .Route .MEDSUPPLY Qty: 1 0RF Rx Instructions: As directed sotalol 80 mg tablet 80 mg PO BID Qty: 180 2RF (DME) Fast Form Splint See Rx Instructions .Route .MEDSUPPLY Qty: 1 0RF Rx Instructions: As directed Eliquis 2.5 mg tablet 2.5 mg PO BID Qty: 180 1RF multivitamin [Multiple Vitamins] Tablet 1 tab PO DAILY Discharge Orders: Discharge ED (Routine); Ordered 12/20/23 Ordered By: Rod Maldonado Referrals: Major Carbajal, RADIOLOGIC TECHNOLOGY TEACHER [Primary Care Provider] - Discharge Diet: Usual diet Discharge Activity: Increase activity as tolerated Patient Instructions: Urinary Tract Infection in Women (ED), Opioid Safety, Pain Management Activity Restrictions/Additional Instructions: Thank you for choosing [facility] for your healthcare needs today. Please realize this is an emergency room and that we are providing you with a medical screening exam and this may not be complete and all inclusive of all the testing and or work up that you may need to determine your ailment or severity of your illness. It is very important that you follow up as instructed or that you return to the Emergency Department should you have concerns or if your condition changes or worsens in any way. Coding Level of Care Code ED Ambulance Officer for Vicki Gonzalez
[2023-12-20 12:30] VITALS: BP 165/92; PULSE 61; RESP 18; O2SAT 97
[2023-12-20 12:36] LABS: Basophils # 0.1 10^3/uL (0.0-0.1); Basophils % 0.8 %; Eosinophils # 0.2 10^3/uL (0.0-0.8); Eosinophils % 2.2 %; Hematocrit 38.2 % (36-47); Lymphocytes # 1.1 10^3/uL (0.8-4.8); Lymphocytes % 11.9 %; Mean Corpuscular HGB Conc 30.6 g/dL (30-55); Mean Corpuscular Hemoglobin 25.5 pg (27-33); Mean Corpuscular Volume 83.2 fl (85-98); Monocytes # 0.5 10^3/uL (0.2-0.9); Neutrophils # 7.07 10^3/uL (1.8-7.7); Neutrophils % 78.7 %; Nucleated Red Blood Cells % 0 %; Platelet Count 263 10^3/cmm (157-399); Red Blood Count 4.59 10^6/uL (3.85-5.65); Red Cell Distribution Width 14.4 % (12.1-15.1); White Blood Count 8.99 10^3/uL (3.29-11.43)
[2023-12-20 12:43] LABS: Urine Appearance Clear (CLEAR); Urine Color Yellow (Yellow); pH Urine 7 (5-7)
[2023-12-20 12:44] LABS: Add Urine Microscopic? YES; Bilirubin Urine Neg (Negative); Blood Urine Neg (Negative); Glucose Urine UA Norm (Normal); Ketones Urine Negative (Negative); Leukocyte Esterase Urine 1+ (Negative); Nitrate Urine Negative (Negative); Protein Urine Neg (Negative); Urobilinogen Urine Norm (Negative)
[2023-12-20 12:51] LABS: Alanine Aminotransferase 8 U/L (0-33); Albumin Level 3.5 g/dL (3.5-5.2); Alkaline Phosphatase 77 U/L (35-105); Anion Gap 15.1 (5-19); Aspartate Amino Transferase 16 U/L (0-32); Blood Urea Nitrogen 10 mg/dL (8-23); Carbon Dioxide 23 mmol/L (22-29); Chloride 105 mmol/L (98-107); Globulin 2.5 g/dL (1.3-4.6); Glucose 119 mg/dL (65-115); Osmolality Calculated 288 mOsm/kg (285-295); Potassium 4.1 mmol/L (3.5-5.1); Sodium 139 mmol/L (136-145); Total Bilirubin 0.5 mg/dL (0.15-1.2)
[2023-12-20 12:52] LABS: Add Urine Culture? No; Squamous Epithelial Cell Urine RARE /hpf (0-5); WBC Urine 0-4 /hpf (0-5)
[2023-12-20 12:54] LABS: Troponin(5th) Baseline 13 ng/L (0-10)
[2023-12-20 13:01] VITALS: PULSE 61; RESP 18; O2SAT 96
--- NOTE | 2023-12-20 13:59 | ECG_ITS ---
[facility] Test Date: 2023-12-20 Pat Name: Holley Haque Department: Room: Gender: Female Building Appraiser: : 1935 Requested By: Rod Dean Order Number: [id number] Reading MD: Jabier Falk M.D. Measurements Intervals [place] Rate: 60 P: 258 [place]: 171 QRS: 12 QRSD: 81 T: 30 QT: 414 QTc: 416 Interpretive Statements ELECTRONIC ATRIAL PACEMAKER ABNORMAL RHYTHM ECG Compared to ECG 12/20/2023 12:23:47 No significant changes Electronically Signed On 12-21-2023 6:53:45 FOUNDRY WORKER APPRENTICE by Jabier Falk M.D. [id number]
[2023-12-20 14:50] VITALS: BP 169/72; PULSE 65; RESP 18; O2SAT 96
== END 2023-12-20 15:36 | disposition home or self-care (01) ==
PROVIDERS: Emergency Provider Family Medicine; PCP Registered Nurse
DX: N30.90 Cystitis, unspecified without hematuria (principal); Z79.01 Long term (current) use of anticoagulants; I10 Essential (primary) hypertension; E78.5 Hyperlipidemia, unspecified; Z95.1 Presence of aortocoronary bypass graft; Z95.0 Presence of cardiac pacemaker; Z87.440 Personal history of urinary (tract) infections
CPT/HCPCS: 36415; 71045; 80053; 81001; 84484; 85025; 93005; 99285

== ENCOUNTER → 2025-10-07 08:29 | Outpatient (BNVA) | payer MEDICARE, SELFPAY | PROVIDERS: PCP Registered Nurse; Visit Provider Internal Medicine Cardiovascular Disease | DX: I48.91 Unspecified atrial fibrillation (principal); Z79.01 Long term (current) use of anticoagulants; I25.10 Atherosclerotic heart disease of native coronary artery without angina pectoris; I10 Essential (primary) hypertension; E78.5 Hyperlipidemia, unspecified; J90 Pleural effusion, not elsewhere classified; Z95.0 Presence of cardiac pacemaker; Z95.1 Presence of aortocoronary bypass graft | CPT/HCPCS: 71046; 93005; 99214 ==